=== PATIENT | male | born 1945 | race Caucasian/White ===

== ENCOUNTER 2020-03-23 17:12 | Inpatient (IN) | payer OTHER ==
--- NOTE | 2020-03-23 17:37 | PDOC ---
Rapid Medical Evaluation Time Seen by Provider: 03/23/20 17:28 Medical Evaluation: 03/23/20 17:33 I performed a brief in-person evaluation of this patient. Pt is a 74 y/o male who presents to the ED with complaint of RUQ abdominal pain x 1 month. The patient was seen in urgent care and was advised to come to the ED for evaluation. Pt denies past medical history. Pertinent physical exam findings: RUQ abdominal tenderness to palpation, + Hammonds's sign, + jaundice I have ordered the following: saline lock, labs, RUQ US Patient to proceed to ED for further evaluation. Discharge Disposition - Diagnosis RUQ abdominal pain - Referrals - Patient Instructions - Post Discharge Activity
--- NOTE | 2020-03-23 20:18 | PDOC ---
History of Present Illness - General Chief Complaint: Pain Stated Complaint: REF BY DOCTOR,PAIN Time Seen by Provider: 03/23/20 17:28 History Source: Patient - History of Present Illness Initial Comments: 03/23/20 20:17 HPI: This is a 74 y/o male former smoker (quit 17 years ago) and former heavy drinker (quit 1 month ago) with no other reported PMH presenting to the ED from urgent care due to progressively worsening upper abdominal pain for the past month. Per the patient, he began having dull cramping pain radiating from his LUQ to his RUQ which has progressed to sharp "lightening" pains. He also admits to a 50lb unintentional weight loss over the past month, anorexia, abnormal gait, weakness, and nausea with dry heaving. Patient denies fever/chills, nightsweats. On Monday, he went to urgent care at the insistence of his where they did labs showing: Lipase 814 ALP 320 ALT 77 AST 73 TBili 2.0 U/S showing distended GB with sludge and hypoechoic nodules throughout the liver. ROS: GENERAL/CONSTITUTIONAL: No fever/chills. Yes progressive weakness. Jaundice HEAD, EYES, EARS, NOSE AND THROAT: No change in vision. No sore throat. Admits to horse voice CARDIOVASCULAR: No chest pain or shortness of breath. RESPIRATORY: No cough, wheezing, or hemoptysis. GASTROINTESTINAL: No nausea, vomiting, diarrhea or constipation. Denied blood in stool. Admits to upper abdominal pain. GENITOURINARY: No dysuria, frequency, or change in urination. MUSCULOSKELETAL: No joint or muscle swelling or pain. No neck or back pain. SKIN: No rash NEUROLOGIC: No headache, vertigo, loss of consciousness, or change in strength/sensation. ENDOCRINE:Anorexia, early satiety. Admits to 50 lb weight loss over 1 month HEMATOLOGIC/LYMPHATIC: No anemia, easy bleeding, or history of blood clots. ALLERGIC/IMMUNOLOGIC: No hives or skin allergy. PMH: Denied PSx: Hernia Social Hx: Former tobacco (quit 17 years ago), Former heavy etoh (1 pint per day, quit 1 month ago) Meds: Denied Allergies: KNDA PE: GENERAL: Awake, alert, and fully oriented, in no acute distress. Patient laying in bed, jaundiced. HEAD: No signs of trauma EYES: PERRLA, EOMI ENT: Auricles normal inspection, hearing grossly normal, nares patent, oropharynx clear without exudates. Moist mucosa NECK: Normal ROM, supple, no lymphadenopathy LUNGS: Breath sounds equal, clear to auscultation bilaterally. No wheezes, and no crackles HEART: Regular rate and rhythm, normal S1 and S2 ABDOMEN: Soft, tender to palpation in RUQ and epigastric region No guarding, no rebound. EXTREMITIES: Normal range of motion, no edema. No clubbing or cyanosis. No cords, erythema, or tenderness NEUROLOGICAL: Cranial nerves II through XII grossly intact. Normal speech SKIN: Warm, Dry. Jaundiced MDM: 03/23/20 20:39 This is a 74 y/o male former smoker (quit 17 years ago) and former heavy drinker (quit 1 month ago) with no other reported PMH presenting to the ED from urgent care due to progressively worsening upper abdominal pain for the past month. Per the patient, he began having dull cramping pain radiating from his LUQ to his RUQ which has progressed to sharp "lightening" pains. He also admits to a 50lb unintentional weight loss over the past month, anorexia, abnormal gait, weakness, and nausea with dry heaving. - Concern for malignancy given the weight loss, hx of etoh, elevated liver and pancreatic enzymes - CBC, CMP, lipase, Cardiac panel, UA - CT abdomen/pelvis IV contrast - IV fluids - Pain management - 4mg Morphine for pain 03/23/20 23:34 Abdominal U/S: IMPRESSION: Multiple hypoechoic nodules/masses in the liver measuring up to 3 cm highly suspicious for metastasis. Correlate clinically. Over distended gallbladder with the largest large and borderline thickening of its wall. No gallstones or pericholecystic free fluid is present. Correlate clinically for further evaluation. 03/24/20 00:01 Labs notable for: BUN 28.4 Creatinine 1.5 Total bili 2.0 AST 84 ALT 91 Alk phos 411 Lipase 600 03/24/20 00:24 CT abdomen and pelvis: FINDINGS: Multiple liver masses are noted scattered throughout the liver. Most likely metastatic liver disease. Is there a history of carcinoma? There is a 1.4 cm low-density focus in the head of the pancreas. This could represent carcinoma and evaluation is recommended. Could be the source of the liver metastases. The pancreatic duct is mildly dilated proximal to this. 03/24/20 01:08 - Spoke with surgery building consultant who said this is not a surgical issue. Contact GI for possible ERCP and stent placement or IR for biopsy. - Patient admitted to [facility] for workup of abdominal mass Past History - Medical History Allergies/Adverse Reactions: Allergies Allergy/AdvReac Type Severity Reaction Status Date / Time No Known Allergies Allergy Verified 03/23/20 17:34 COPD: No - Immunization History Immunization Up to Date: No - Psycho-Social/Smoking History Smoking History: Never smoked Have you smoked in the past 12 months: No - Substance Abuse Hx (Audit-C & DAST Scrn) How often the patient has a drink containing alcohol: Monthly or less Number of drinks the patient has on a typical day: 1 or 2 How often the patient has six or more drinks on one occasion: Never Score: In Men: 4 or > Positive; In Women: 3 or > Positive: 1 Screen Result (Pos requires Nsg. Audit-10AR): Negative In the last yr the pt used illegal drug/Rx for NonMed reason: No Score: Yes response is considered Positive: 0 Screen Result (Positive result requires Nsg. DAST-10): Negative *Physical Exam - Vital Signs Last Vital Signs Temp Pulse Resp BP Pulse Ox 97.8 F 73 18 105/66 100 03/23/20 17:34 03/23/20 17:34 03/23/20 17:34 03/23/20 17:34 03/23/20 17:34 Heart Score/ECG Review - ECG Intrepretation Comment:: 03/23/20 23:[address] elevations or T wave inversions Sinus bradycardia Increased R/S ratio in V1, consider early transition or posterior infarct Vent rate 58bpm Pr interval 156ms QRS dur 86ms QT/QTc 474/465 ED Treatment Course - LABORATORY CBC & Chemistry Diagram: 03/23/20 20:55 03/23/20 20:55 Discharge - Discharge Information Problems reviewed: Yes Clinical Impression/Diagnosis: RUQ abdominal pain - Admission Yes - Follow up/Referral - Patient Discharge Instructions - Post Discharge Activity
--- NOTE | 2020-03-23 20:28 | PDOC ---
Attending Attestation - Resident Resident Name: GaurangChristelle - ED Attending Attestation I have performed the following: I have examined & evaluated the patient, The case was reviewed & discussed with the resident, I agree w/resident's findings & plan - HPI HPI: 03/23/20 20:42 see resident hpi - Physicial Exam PE: 03/23/20 20:42 see resident exam - Medical Decision Making 03/23/20 20:42 74-year-old male complaining of 50 pound weight loss over the last month as well as decreased appetite and pain in the upper abdomen, specifically pointing to the right upper quadrant 03/23/20 20:44 Plan for right upper quadrant ultrasound and CT scan of the abdomen and pelvis due to history of alcohol use as well as family history of pancreatic disease, possibly malignancy Discharge - Discharge Information Problems reviewed: Yes Clinical Impression/Diagnosis: RUQ abdominal pain - Follow up/Referral - Patient Discharge Instructions - Post Discharge Activity
[2020-03-23] MEDS ORDERED: SODIUM CHLORIDE 0.9% 500 ML INFUS.BAG IV ONE (20:58)
[2020-03-23 21:13] LABS: BASO % 0.7 % (0-2.0); EOS % 0.7 % (0-4.5); HEMATOCRIT 36.7 % (35.4-49); HEMOGLOBIN 12.8 GM/dL (11.7-16.9); LYMPH % 9.8 % (8-40); MCH 33.4 pg (25.7-33.7); MCHC 34.8 g/dl (32.0-35.9); MEAN CELL VOLUME 95.8 fl (80-96); MEAN PLT VOLUME 10.3 fl (7.5-11.1); MONO % 8.8 % (3.8-10.2); PLATELET COUNT 209 K/MM3 (134-434); RBC 3.83 M/mm3 (4.00-5.60); RDW 12.6 % (11.9-15.9); WHITE BLOOD COUNT 8.9 K/mm3 (4.0-10.0)
[2020-03-23 21:44] LABS: ALBUMIN 3.7 g/dl (3.4-5.0); ALK PHOS 411 U/L (45-117); ANION GAP 10 MMOL/L (8-16); BLOOD UREA NITROGEN 28.4 mg/dL (7-18); CHLORIDE 101 mmol/L (98-107); CO2 26 mmol/L (21-32); CREATININE 1.5 mg/dL (0.55-1.3); GLUCOSE,RANDOM 120 mg/dL (74-106); LIPASE 600 U/L (73-393); POTASSIUM 3.9 mmol/L (3.5-5.1); SGOT/AST 84 U/L (15-37); SGPT/ALT 91 U/L (13-61); SODIUM 136 mmol/L (136-145); TOT PROT 7.2 g/dl (6.4-8.2)
[2020-03-23] MEDS ORDERED: MORPHINE SULFATE 2 MG/ML VIAL ONE (23:44)
[2020-03-23] MEDS: morphine CARPU-JECT 2 MG/1 ML DISP.SYRIN IVPUSH ONE (23:50)
[2020-03-24] MEDS ORDERED: morphine CARPU-JECT 2 MG/1 ML DISP.SYRIN IVPUSH ONE (00:11)
[2020-03-24] MEDS ORDERED: morphine CARPU-JECT 4 MG/1 ML DISP.SYRIN IVPUSH ONE (00:49)
[2020-03-24] MEDS ORDERED: morphine SULFATE 4 MG/ML VIAL ONE (00:50)
[2020-03-24] MEDS: morphine CARPU-JECT 2 MG/1 ML DISP.SYRIN IVPUSH ONE (01:12)
[2020-03-24 01:39] LABS: URINE APPEARANCE CLEAR; URINE BILIRUBIN NEGATIVE (NEGATIVE); URINE COLOR YELLOW; URINE GLUCOSE (UA) NEGATIVE (NEGATIVE); URINE KETONE 2+ (NEGATIVE); URINE LEUK ESTERASE NEGATIVE (NEGATIVE); URINE NITRITE NEGATIVE (NEGATIVE); URINE PROTEIN TRACE (NEGATIVE)
--- NOTE | 2020-03-24 01:43 | PN ---
Teaching Attending Note Name of Resident: Richmond Deleon ATTENDING PHYSICIAN STATEMENT I saw and evaluated the patient. I reviewed the resident's note and discussed the case with the resident. I agree with the resident's findings and plan as documented. SUBJECTIVE: Patient is a 74 year old man with a PMH of Alcohol abuse and Former smoker pr esents to the ER from Urgent care due to progressively worsening upper abdominal pain for the past month. Per the patient, he began having dull cramping pain radiating from his LUQ to his RUQ which has progressed to sharp "lightening" pains. He also admits to a 50lb unintentional weight loss over the past month, anorexia, dizziness, abnormal gait, easy satiety, weakness and nausea with dry heaving. Patient denies fever, chills and night sweats. Laboratory tests showed elevated LFTs and Lipase. Patient denies chest pain, shortness of breath, headache, palpitations, fever, chills, vomiting, diarrhea, constipation, dysuria, frequency, urgency, melena, hematochezia or hematuria. Former smoker. He is a [place] and had a normal colonoscopy 10 years ago. Denies tobacco or illicit drug use. No sick contacts or recent travels. Family history of pancreatic disease/?pancreatic cancer in father. OBJECTIVE: Alert Vital Signs Period Temp Pulse Resp BP Sys/De Paz Pulse Ox Last 24 Hr 97.8 F 63-73 18-18 105-193/66-83 100-100 HEENT: ++Jaundice, eye redness or discharge, PERRLA, EOMI. Normocephalic, atraumatic. External ears are normal and hearing is grossly intact. No nasal discharge. Neck: Supple, nontender. No palpable adenopathy or thyromegaly. No JVD Chest: Good effort. Clear to auscultation and percussion. Heart: Regular. No S3, rub or murmur Abdomen: Not distended, soft, RUQ and epigastric tenderness and no HSM. No rebound or guarding. Normal bowel sounds. Ext: Peripheral pulses intact. No leg edema. Skin: Warm and dry. No petechiae, rash or ecchymosis. Neuro: Alert. Oriented x3. CN 2-12 grossly intact. Sensation grossly intact in all four extremities and DTR are symmetric. Psych: Appropriate mood and affect. Good insight. Abnormal Lab Results 03/23/20 03/23/20 03/24/20 20:55 20:55 01:03 RBC 3.83 L BUN 28.4 H Creatinine 1.5 H Random Glucose 120 H Total Bilirubin 2.0 H AST 84 H ALT 91 H Alkaline Phosphatase 411 H Lipase 600 H Urine Ketones 2+ H Current Medications Generic Name Dose Route Start Last Admin Trade Name Freq PRN Reason Stop Dose Admin Amlodipine Besylate 5 mg 03/24/20 06:00 Norvasc - PO DAILY AIRAM Heparin Sodium (Porcine) 5,000 unit 03/24/20 10:00 Heparin - SQ Q8H-IV AIRAM Morphine Sulfate 2 mg 03/24/20 05:13 Morphine Injection - IVPUSH Q4H PRN PAIN LEVEL 7 - 10 ASSESSMENT AND PLAN: 1. Hepatic masses/Abdominal pain - Abdominal ultrasound report - Multiple hypoechoic nodules/masses in the liver measuring up to 3 cm highly suspicious for metastasis. Correlate clinically. Over distended gallbladder with the largest large and borderline thickening of its wall. No gallstones or pericholecystic free fluid is present. Correlate clinically for further evaluation. CT abdomen/pelvis report - Multiple liver masses are noted scattered throughout the liver. Most likely metastatic liver disease. Is there a history of carcinoma? There is a 1.4 cm low-density focus in the head of the pancreas. This could represent carcinoma and evaluation is recommended. Could be the source of the liver metastases. The pancreatic duct is mildly dilated proximal to this. EKG shows sinus bradycardia at 58/minute and QTc [address]-T wave changes. Will avoid drugs that may prolong QTc. No acute abnormality on CXR. Will trend LFTs, monitor blood glucose q shift, avoid hepatoxic agents, send tumor markers - CA19-9, CEA, Alpha-fetoprotein, PSA, CA 125 - monitor and replete electrolytes and consult GI/Oncology. Treat hypertension with Amlodipine 5 mg q am and Minoxidil 2.5 mg q pm. Viral testing for COVID-19 ordered and patient placed on airborne, droplet and contact isolation. Will continue comprehensive care for all of patients comorbid conditions. 2. SY Cause unclear - may have a component of hepatorenal syndrome. Will get kidney sonogram, hydrate with IV NS, monitor urine output and consult Nephrology. Avoid nephrotoxic agents such as NSAIDS, aminoglycosides, contrast dyes and certain Alternative medicine products. 3. DVT prophylaxis - Heparin 5000u sq tid. 4. Advance directives - Full code
--- OUTSIDE RECORDS SUMMARY | 2020-03-24 02:45 | XMS ---
:1945 Author Organization [facility] Support Name Relationship Address Phone RE Unavailable Unavailable Unavailable DEBORAH GENAO [address] [place] [address] Re-disclosure Warning The records that you are about to access may contain information from federally- assisted alcohol or drug abuse programs. If such information is present, then the following federally mandated warning applies: This information has been disclosed to you from records protected by federal confidentiality rules (42 CFR part 2). The federal rules prohibit you from making any further disclosure of this information unless further disclosure is expressly permitted by the written consent of the person to whom it pertains or as otherwise permitted by 42 CFR part 2. A general authorization for the release of medical or other information is NOT sufficient for this purpose. The Federal rules restrict any use of the information to criminally investigate or prosecute any alcohol or drug abuse patient.The records that you are about to access may contain highly sensitive health information, the redisclosure of which is protected by Article 27-F of the [facility] Public Health law. If you continue you may haveaccess to information: Regarding HIV / AIDS; Provided by facilities licensed or operated by the [facility] Office of Mental Health; or Provided by the [facility] Office for People With Developmental Disabilities. If such information is present, then the following [facility] mandated warning applies: This information has been disclosed to you from confidential records which are protected by state law. State law prohibits you from making any further disclosure of this information without the specific written consent of the person to whom it pertains, or as otherwise permitted by law. Any unauthorized further disclosure in violation of state law may result in a fine or prison sentence or both. A general authorization for the release of medical or other information is NOT sufficient authorization for further disclosure. 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
--- NOTE | 2020-03-24 05:24 | HP ---
CHIEF COMPLAINT: PCP: HISTORY OF PRESENT ILLNESS: 74M w/ no significant PMH referred to ED by UC for concern of US RUQ showing multiple liver masses and thickened GB wall. Has had abdominal discomfort for 1.5mo, which has gotten worse to become intermittent excruciating pain. Decided to seek UC, after lack of resolution. Pain is band-like epigastric pain radiating to the back. Has had decreased appetite. No post-prandial pain. Concerned it was COVID so tried quarantine. Feels weak, fatigued, dizzy when getting up. Wfie thinks 50lb weight loss in 1mo. Thinks voice has been hoarse for past 2-3 weeks. Has intermittent nausea for past weeks. Feels like has trouble walking, needs to stablize self. Denies jaundice, scleral icterus, pale stools. Denies home meds. Takes MVI. Last colonoscopy was over 10ys prior, which was normal. Received at [facility]. Served in [employer]. Never got tested for hepatitis. No exposure to [place]. 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 ER course was notable for: (1) Tmax 97.8F, 73, BP 193/83 (2) BUN/Cr 28.4/1.5 (3) Tbil 2.0, AP 411, AST/ALT 84/91 (4) Lipase 600 (5) US INA: multiple masses in the liver(up to 3cm), highly suspicious for metastasis. Overdistended GB w/ borderline thickened wall. No gallstones or pericholecystic free fluid. (6) CT A/P: multiple liver masses are noted throughout the liver. 1.4cm low- density focus in the head of the pancreas, could represent carcinoma. Pancreatic duct is mildly dilated. (7) ED contacted Surgery on-call who said this was not a surgical issue. Contact GI for possible ERCP and stent placement or IR for biopsy. (8) NS 1L, morphine 4mg, 2mg, 2mg Recent Travel: denies PAST MEDICAL HISTORY: former smoker former chronic EtOH PAST SURGICAL HISTORY: Right Inguinal Hernia Social History: Smoking: quit 20ys prior, first started at 22y/o for 0.5 - 1.5ppd Alcohol: quit 1mo prior. 1pint vodka daily. Has been drinking regularly for 50ys Drugs: denies Allergies No Known Allergies Allergy (Verified 03/23/20 17:34) HOME MEDICATIONS: REVIEW OF SYSTEMS CONSTITUTIONAL: generalized weakness, malaise, loss of appetite, weight change Absent: fever, chills, diaphoresis, HEENT: Absent: rhinorrhea, nasal congestion, throat pain, throat swelling, difficulty swallowing, mouth swelling, ear pain, eye pain, visual changes CARDIOVASCULAR: Absent: chest pain, syncope, palpitations, irregular heart rate, lightheadedness, peripheral edema RESPIRATORY: Absent: cough, shortness of breath, dyspnea with exertion, orthopnea, wheezing, stridor, hemoptysis GASTROINTESTINAL: abdominal pain Absent: , abdominal distension, nausea, vomiting, diarrhea, constipation, melena, hematochezia GENITOURINARY: Absent: dysuria, frequency, urgency, hesitancy, hematuria, flank pain, genital pain MUSCULOSKELETAL: Absent: myalgia, arthralgia, joint swelling, back pain, neck pain SKIN: Absent: rash, itching, pallor HEMATOLOGIC/IMMUNOLOGIC: Absent: easy bleeding, easy bruising, lymphadenopathy, frequent infections ENDOCRINE: unexplained weight gain, unexplained weight loss, Absent: heat intolerance, cold intolerance NEUROLOGIC: Absent: headache, focal weakness or paresthesias, dizziness, unsteady gait, seizure, mental status changes, bladder or bowel incontinence PSYCHIATRIC: Absent: anxiety, depression, suicidal or homicidal ideation, hallucinations. PHYSICAL EXAMINATION Vital Signs - 24 hr 03/23/20 03/23/20 17:34 23:50 Temperature 97.8 F Pulse Rate 73 Pulse Rate [ 63 Both Radial] Respiratory 18 18 Rate Blood Pressure 105/66 Blood Pressure 193/83 H [Left Arm] O2 Sat by Pulse 100 100 Oximetry (%) GENERAL: Awake, alert, and fully oriented, in no acute distress. HEAD: Normal with no signs of trauma. Mild temporal wasting EYES: Sclera anicteric, conjunctiva clear. No lid lag. EARS, NOSE, THROAT: Moist mucous membranes. NECK: no cervical LAD. LUNGS: Breath sounds equal, clear to auscultation bilaterally. No wheezes, and no crackles. HEART: Regular rate and rhythm, normal S1 and S2 without murmur, rub or gallop. ABDOMEN: Soft, not distended, RUQ tenderness w/ deep palpitation, mild tenderness of LQU and LLQ, no rebound. MUSCULOSKELETAL: No bony deformities or tenderness. No CVA tenderness. UPPER EXTREMITIES: 2+ pulses, warm, well-perfused. No cyanosis. No clubbing. No peripheral edema. LOWER EXTREMITIES: 2+ pulses, warm, well-perfused. No calf tenderness. No p eripheral edema. NEUROLOGICAL: Cranial nerves II-XII intact. Normal speech. Normal gait. SKIN: Warm, dry, normal turgor, no rashes or lesions noted, normal capillary refill. Laboratory Results - last 24 hr 03/23/20 03/23/20 03/24/20 20:55 20:55 01:03 WBC 8.9 RBC 3.83 L Hgb 12.8 Hct 36.7 MCV 95.8 MCH 33.4 MCHC 34.8 RDW 12.6 Plt Count 209 MPV 10.3 Absolute Neuts (auto) 7.1 Neutrophils % 80.0 Lymphocytes % 9.8 Monocytes % 8.8 Eosinophils % 0.7 Basophils % 0.7 Nucleated RBC % 0 Sodium 136 Potassium 3.9 Chloride 101 Carbon Dioxide 26 Anion Gap 10 BUN 28.4 H Creatinine 1.5 H Est GFR (CKD-EPI)AfAm 52.77 Est GFR (CKD-EPI)NonAf 45.53 Random Glucose 120 H Calcium 9.0 Total Bilirubin 2.0 H AST 84 H ALT 91 H Alkaline Phosphatase 411 H Creatine Kinase 42 Troponin I < 0.02 Total Protein 7.2 Albumin 3.7 Lipase 600 H Urine Color Yellow Urine Appearance Clear Urine pH 6.0 Ur Specific [place] 1.033 Urine Protein Trace Urine Glucose (UA) Negative Urine Ketones 2+ H Urine Blood Negative Urine Nitrite Negative Urine Bilirubin Negative Urine Urobilinogen 1.0 Ur Leukocyte Esterase Negative ASSESSMENT/PLAN: 74M w/ no significant PMH referred to ED by for concern of US RUQ showing multiple liver masses and thickened GB wall. Labwork notable for Tbil 2.0, AP 411, AST/ALT 84/91 and imaging showing multiple liver masses, pancreatic head mass, and possible GB wall thickening. Admitted for liver mets from unknown origin. #RUQ pain --possibly 2/2 acute/chronic cholecystitis vs Rhoda capsule distension from liver mets > Tbil 2.0, AP 411, AST/ALT 84/91 > US INA: multiple masses in the liver(up to 3cm), highly suspicious for metastasis. Overdistended GB w/ borderline thickened wall. No gallstones or pericholecystic free fluid. > CT A/P: multiple liver masses are noted throughout the liver. 1.4cm low- density focus in the head of the pancreas, could represent carcinoma. Pancreatic duct is mildly dilated. - pain regimen: -morphine 2mg q4h - GI consult(Daryn): --recs pending: colonoscopy? EGD + EUS? biliary stent? #liver mets from unknown > CEA, CA125, CA 19-9, AFP - Oncology consult(Lashae De La Fuente): --recs pending #SY vs CKD > Cr 1.5(unknown baseline) - IVF #hypertension --possibly from RUQ pain -amlodipine 5mg QD; if no improvement in BP may consider adding NICOLÁS-I, HCTZ, or minoxidil #ho of chronic EtOH usage --not in withdrawal - monitor for withdrawal #asymptomatic bradycardia > HR 58 - monitor #prolonged QTc > QTc 465 - avoid QTc prolonging meds FEN - regular diet - NS @100 DVT PPX - SQH Family Medical History Family History: As Documented Family Hx Cancer: Father (pancreatitis vs pancreatic cancer) Visit type - Medication Review Med list reviewed for High Risk Meds patients 65 and older: Yes - Emergency Visit Emergency Visit: Yes ED Registration Date: 03/24/20 Care time: The patient presented to the Emergency Department on the above date and was hospitalized for further evaluation of their emergent condition. - New Patient This patient is new to me today: Yes Date on this admission: 03/24/20 - Critical Care Critical Care patient: No ATTENDING PHYSICIAN STATEMENT I saw and evaluated the patient. I reviewed the resident's note and discussed the case with the resident. I agree with the resident's findings and plan as documented. SUBJECTIVE: OBJECTIVE: ASSESSMENT AND PLAN:
[2020-03-24] MEDS ORDERED: SODIUM CHLORIDE 1,000 ML IV SCH (06:30)
[2020-03-24] MEDS ORDERED: THIAMINE HCL 200 MG/2 ML VIAL IVPB ONE (06:47)
[2020-03-24] MEDS ORDERED: amLODIPine BESYLATE 5 MG TABLET (FP) ONE (07:09)
[2020-03-24] MEDS: amLODIPine BESYLATE 5 MG TABLET (FP) PO SCH ×2 (07:12→11:53)
[2020-03-24] MEDS: HEPARIN NA (PORCINE) 5,000 UNITS/ML 1ML VIAL SQ SCH ×3 (08:15→23:42)
[2020-03-24 09:09] LABS: HEMATOCRIT 33.5 % (35.4-49); HEMOGLOBIN 11.6 GM/dL (11.7-16.9); MCH 33.4 pg (25.7-33.7); MCHC 34.7 g/dl (32.0-35.9); MEAN CELL VOLUME 96.2 fl (80-96); MEAN PLT VOLUME 11.1 fl (7.5-11.1); PLATELET COUNT 126 K/MM3 (134-434); RBC 3.48 M/mm3 (4.00-5.60); RDW 12.5 % (11.9-15.9); WHITE BLOOD COUNT 6.3 K/mm3 (4.0-10.0)
[2020-03-24] MEDS ORDERED: FOLIC ACID 1 MG TABLET (FP) ONE (09:09)
[2020-03-24] MEDS ORDERED: THIAMINE HCL 200 MG/2 ML VIAL ONE (09:09)
[2020-03-24] MEDS ORDERED: MULTIVITAMINS (DAILY MVI) TABLET (FP) ONE (09:09)
[2020-03-24 09:18] LABS: INR 1.51 (0.83-1.09); PROTHROMBIN TIME (PATIENT) 17.9 SEC (9.7-13.0)
[2020-03-24] MEDS: FOLIC ACID 1 MG TABLET (FP) PO SCH (09:24)
[2020-03-24] MEDS: MULTIVITAMINS (DAILY MVI) TABLET (FP) PO SCH (09:24)
--- NOTE | 2020-03-24 09:27 | EKG ---
Test Reason : Blood Pressure : / mmHG Vent. Rate : 058 BPM Atrial Rate : 058 BPM P-R Int : 156 ms QRS Dur : 086 ms QT Int : 474 ms P-R-T Axes : 067 017 051 degrees QTc Int : 465 ms SINUS BRADYCARDIA INCREASED R/S RATIO IN V1, CONSIDER EARLY TRANSITION OR POSTERIOR INFARCT ABNORMAL ECG NO PREVIOUS ECGS AVAILABLE Confirmed by MD DERIC, RAFI ([id number]) on 03/24/2020 9:27:05 AM Referred By: Confirmed By:RAFI LEOS MD
[2020-03-24 09:38] LABS: ALBUMIN 3.4 g/dl (3.4-5.0); BILIRUBIN,DIRECT 1.1 mg/dL (0.0-0.2); BILIRUBIN,TOTAL 2.3 mg/dL (0.2-1); BLOOD UREA NITROGEN 21.6 mg/dL (7-18); CALCIUM 8.4 mg/dL (8.5-10.1); CREATININE 0.9 mg/dL (0.55-1.3); MAGNESIUM 2.4 mg/dL (1.8-2.4); PHOSPHOROUS 3.1 mg/dL (2.5-4.9); POTASSIUM 3.9 mmol/L (3.5-5.1); TOT PROT 6.5 g/dl (6.4-8.2)
--- NOTE | 2020-03-24 10:17 | PN ---
Physical Exam: SUBJECTIVE: Patient seen and examined in the ED. Pt appears in no acute distress, c/o upper abdominal pain that radiates to his back, denies nausea, vomiting. States feeling nervous and fearful d/t findings on CT scan OBJECTIVE: 74M w/ hx of right inguinal herina s/p repair in , ETOH abuse (quit 1 month ago, drank 1 pint vodka daily) and former smoker referred to ED by UC for concern of US RUQ showing multiple liver masses and thickened GB wall. Has had abdominal discomfort for 1.5mo, which has gotten worse. Decided to seek UC, after lack of resolution. Pain is band-like epigastric pain radiating to the back. Has had decreased appetite. No post-prandial pain. Concerned it was COVID so tried quarantine. Also endorses a 50lb weight loss in 1 mo. Has intermittent nausea for past weeks. Last colonoscopy was over 10ys prior, which was normal. Vital Signs Period Temp Pulse Resp BP Sys/De [place]az Pulse Ox Last 24 Hr 97.8 F-98.4 F 62-73 18-18 105-193/66-83 97-100 GENERAL: The patient is awake, alert, and fully oriented, in no acute distress. HEAD: Normal with no signs of trauma. EYES: PERRL, extraocular movements intact, sclera anicteric, conjunctiva clear. No ptosis. ENT: Ears normal, nares patent, oropharynx clear without exudates, moist mucous membranes. NECK: Trachea midline, full range of motion, supple. LUNGS: Breath sounds equal, clear to auscultation bilaterally, no wheezes, no crackles, no accessory muscle use. HEART: Regular rate and rhythm, S1, S2 without murmur, rub or gallop. ABDOMEN: Soft, generalized tenderness to palpation, nondistended, normoactive bowel sounds, no guarding, no rebound. EXTREMITIES: 2+ pulses, warm, well-perfused, no edema. NEUROLOGICAL: Cranial nerves II through XII grossly intact. Normal speech, gait not observed. PSYCH: Nervous, fearful, normal affect. SKIN: Warm, dry, normal turgor, no rashes or lesions noted Laboratory Results - last 24 hr 03/23/20 03/23/20 03/24/20 20:55 20:55 01:03 WBC 8.9 RBC 3.83 L Hgb 12.8 Hct 36.7 MCV 95.8 MCH 33.4 MCHC 34.8 RDW 12.6 Plt Count 209 MPV 10.3 Absolute Neuts (auto) 7.1 Neutrophils % 80.0 Lymphocytes % 9.8 Monocytes % 8.8 Eosinophils % 0.7 Basophils % 0.7 Nucleated RBC % 0 PT with INR INR Sodium 136 Potassium 3.9 Chloride 101 Carbon Dioxide 26 Anion Gap 10 BUN 28.4 H Creatinine 1.5 H Est GFR (CKD-EPI)AfAm 52.77 Est GFR (CKD-EPI)NonAf 45.53 Random Glucose 120 H Calcium 9.0 Phosphorus Magnesium Total Bilirubin 2.0 H Direct Bilirubin AST 84 H ALT 91 H Alkaline Phosphatase 411 H Creatine Kinase 42 Troponin I < 0.02 Total Protein 7.2 Albumin 3.7 Lipase 600 H Urine Color Yellow Urine Appearance Clear Urine pH 6.0 Ur Specific [place] 1.033 Urine Protein Trace Urine Glucose (UA) Negative Urine Ketones 2+ H Urine Blood Negative Urine Nitrite Negative Urine Bilirubin Negative Urine Urobilinogen 1.0 Ur Leukocyte Esterase Negative 03/24/20 03/24/20 03/24/20 08:20 08:20 08:20 WBC 6.3 RBC 3.48 L Hgb 11.6 L Hct 33.5 L MCV 96.2 H MCH 33.4 MCHC 34.7 RDW 12.5 Plt Count MPV Absolute Neuts (auto) Neutrophils % Lymphocytes % Monocytes % Eosinophils % Basophils % Nucleated RBC % PT with INR 17.90 H INR 1.51 H Sodium 136 Potassium 3.9 Chloride 103 Carbon Dioxide 24 Anion Gap 9 BUN 21.6 H Creatinine 0.9 Est GFR (CKD-EPI)AfAm 97.86 Est GFR (CKD-EPI)NonAf 84.43 Random Glucose 104 Calcium 8.4 L Phosphorus 3.1 Magnesium 2.4 Total Bilirubin 2.3 H Direct Bilirubin 1.1 H AST 65 H ALT 72 H Alkaline Phosphatase 339 H Creatine Kinase Troponin I Total Protein 6.5 Albumin 3.4 Lipase Urine Color Urine Appearance Urine pH Ur Specific [place] Urine Protein Urine Glucose (UA) Urine Ketones Urine Blood Urine Nitrite Urine Bilirubin Urine Urobilinogen Ur Leukocyte Esterase Active Medications Generic Name Dose Route Start Last Admin Trade Name Freq PRN Reason Stop Dose Admin Amlodipine Besylate 5 mg 03/24/20 06:00 03/24/20 07:12 Norvasc - PO Not Given DAILY AIRAM Folic Acid 1 mg 03/24/20 10:00 03/24/20 09:24 Folic Acid - PO 1 mg DAILY AIRAM Administration Heparin Sodium (Porcine) 5,000 unit 03/24/20 06:30 03/24/20 08:15 Heparin - SQ Not Given TID AIRAM Sodium Chloride 1,000 mls @ 100 mls/hr 03/24/20 06:30 03/24/20 07:30 Normal Saline - IV 100 mls/hr ASDIR AIRAM Administration Morphine Sulfate 2 mg 03/24/20 05:13 Morphine Sulfate IVPUSH Q4H PRN PAIN LEVEL 7 - 10 Multivitamins/Minerals/Vitamin C 1 tab 03/24/20 10:00 03/24/20 09:24 Tab-A-Vit - PO 1 tab DAILY AIRAM Administration Thiamine HCl 100 mg 03/25/20 10:00 Vitamin B1 - PO DAILY AIRAM ASSESSMENT/PLAN: see problem list Covid Status pending Problem List - Problems (1) Abdominal pain Assessment/Plan: CT A/P done - positive for liver mets, possible hepatic vein thrombosis, focal density seen on pancreas GI consult Morphine 2mg IV PRN for pain Code(s): R10.9 - UNSPECIFIED ABDOMINAL PAIN (2) 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 Assessment/Plan: GI recommending transfer to hepatobiliary center explained this to patient, states will think about it and make a decision regard ing transfer seen by Heme/Onc tumor markers pending Code(s): C78.7 - SECONDARY MALIG NEOPLASM OF LIVER AND INTRAHEPATIC BILE DUCT; C80.1 - MALIGNANT (PRIMARY) NEOPLASM, UNSPECIFIED (3) Former consumption of alcohol Assessment/Plan: quit 1 month ago, drank 1 pint vodka daily no s/s withdrawl Code(s): Z87.898 - PERSONAL HISTORY OF OTHER SPECIFIED CONDITIONS (4) Poor appetite Assessment/Plan: states has lost significant amount of weight in the last month continue regular diet monitor electrolytes Code(s): R63.0 - ANOREXIA (5) Hyperbilirubinemia Assessment/Plan: monitor bilirubin levels Code(s): E80.6 - OTHER DISORDERS OF BILIRUBIN METABOLISM (6) Elevated liver enzymes Assessment/Plan: continue to monitor Code(s): R74.8 - ABNORMAL LEVELS OF OTHER SERUM ENZYMES (7) DVT prophylaxis Assessment/Plan: Heparin SQ tid FEN Regular Diet Fluids dc'd d/t elevated BP monitor electrolytes Code(s): Z29.9 - ENCOUNTER FOR PROPHYLACTIC MEASURES, UNSPECIFIED Visit type - Emergency Visit Emergency Visit: Yes ED Registration Date: 03/24/20 Care time: The patient presented to the Emergency Department on the above date and was hospitalized for further evaluation of their emergent condition. - New Patient This patient is new to me today: Yes Date on this admission: 03/24/20 - Critical Care Critical Care patient: No - Discharge Referral Referred to [facility] Med P.C.: No - Medication Review Med list reviewed for High Risk Meds patients 65 and older: Yes
--- NOTE | 2020-03-24 11:14 | CONSULT ---
Consultation: Heme-Onc Resident note REQUESTING PROVIDER: Dr. Chauhan CONSULT REQUEST: We have been asked to medically evaluate this patient for liver masses. HISTORY OF PRESENT ILLNESS: Patient is a 74 year old male with no significant past medical history presented to the ED with RUQ pain for more than a month. Patient reported he started experiencing abdominal pain about 1 1/2 months ago, described as persistent dull ache at the RUQ, and at times would have intermittent sharp pains, with no aggravating or alleviating factors. During that time, patient also started having loss of appetite and generalized fatigue that ADLs became tiring. Patient also reports unintentional weight loss in the last month, that he can "see it". He is also a chronic alcohol drinker, and stopped last month as he didn't have any appetite. Yesterday, due to persistent symptoms, patient went to urgent care where US was done and revealed multiple liver masses suspicious for metastasis. Patient was then advised to go to the hospital. Patient denies any recent illness or sick contacts. Denies fevers, chills, night sweats, headache, dizziness, chest pain, shortness of breath, nausea, vomiting, diarrhea, bloody stools, constipation, urinary symptoms. He had colonoscopy once in the past that was reported normal, but is unsure when it was done, possibly >10 years ago. Last annual follow up with PCP about 3 years ago as everything was reported normal. PMHx: none PSHx: inguinal hernia repair Allergies: NKDA SHx: 30 pack years smoking history, quit 20 years ago, drinks 1 pint of vodka daily, stopped a month ago, denies illicit drug use FHx: pancreatitis - father, no history of blood disorders or cancer in the family REVIEW OF SYSTEMS: CONSTITUTIONAL: generalized weakness, malaise, loss of appetite, weight loss Absent: fever, chills, diaphoresis, HEENT: Absent: rhinorrhea, nasal congestion, throat pain, throat swelling, difficulty swallowing, mouth swelling, ear pain, eye pain, visual changes CARDIOVASCULAR: Absent: chest pain, syncope, palpitations, irregular heart rate, lightheadedness, peripheral edema RESPIRATORY: Absent: cough, shortness of breath, dyspnea with exertion, orthopnea, wheezing, stridor, hemoptysis GASTROINTESTINAL:abdominal pain Absent: abdominal distension, nausea, vomiting, diarrhea, constipation, melena, hematochezia GENITOURINARY: Absent: dysuria, frequency, urgency, hesitancy, hematuria, flank pain, genital pain MUSCULOSKELETAL: Absent: myalgia, arthralgia, joint swelling, back pain, neck pain SKIN: Absent: rash, itching, pallor HEMATOLOGIC/IMMUNOLOGIC: Absent: easy bleeding, easy bruising, lymphadenopathy, frequent infections ENDOCRINE: Absent: unexplained weight gain, unexplained weight loss, heat intolerance, cold intolerance NEUROLOGIC: Absent: headache, focal weakness or paresthesias, dizziness, unsteady gait, seizure, mental status changes, bladder or bowel incontinence PSYCHIATRIC: Absent: anxiety, depression, suicidal or homicidal ideation, hallucinations. PHYSICAL EXAMINATION Vital Signs - 24 hr 03/23/20 03/23/20 03/23/20 17:34 21:30 23:50 Temperature 97.8 F Pulse Rate 73 Pulse Rate [ 63 Both Radial] Respiratory 18 18 Rate Blood Pressure 105/66 Blood Pressure 193/83 H [Left Arm] O2 Sat by Pulse 100 100 100 Oximetry (%) 03/24/20 06:16 Temperature 98.4 F Pulse Rate Pulse Rate [ 62 Both Radial] Respiratory 18 Rate Blood Pressure Blood Pressure 166/82 [Left Arm] O2 Sat by Pulse 97 Oximetry (%) GENERAL: Awake, alert, and fully oriented, in no acute distress. HEAD: Normal with no signs of trauma. EYES: EOMI, sclera anicteric, conjunctiva clear. EARS, NOSE, THROAT:Moist mucous membranes. NECK: Normal range of motion, supple without lymphadenopathy, JVD, or masses. LUNGS: Breath sounds equal, clear to auscultation bilaterally. HEART: Regular rate and rhythm, normal S1 and S2 without murmur. ABDOMEN: Soft, RUQ tenderness, not distended, normoactive bowel sounds, no guarding, no rebound LOWER EXTREMITIES: 2+ pulses, warm, well-perfused. No calf tenderness. No peripheral edema. NEUROLOGICAL: Cranial nerves II-XII grossly intact. Normal speech. PSYCHIATRIC: Cooperative. Good eye contact. Appropriate mood and affect. SKIN: Warm, dry, normal turgor. Laboratory Results - last 24 hr 03/23/20 03/23/20 03/24/20 20:55 20:55 01:03 WBC 8.9 RBC 3.83 L Hgb 12.8 Hct 36.7 MCV 95.8 MCH 33.4 MCHC 34.8 RDW 12.6 Plt Count 209 MPV 10.3 Absolute Neuts (auto) 7.1 Neutrophils % 80.0 Lymphocytes % 9.8 Monocytes % 8.8 Eosinophils % 0.7 Basophils % 0.7 Nucleated RBC % 0 PT with INR INR Sodium 136 Potassium 3.9 Chloride 101 Carbon Dioxide 26 Anion Gap 10 BUN 28.4 H Creatinine 1.5 H Est GFR (CKD-EPI)AfAm 52.77 Est GFR (CKD-EPI)NonAf 45.53 Random Glucose 120 H Calcium 9.0 Phosphorus Magnesium Total Bilirubin 2.0 H Direct Bilirubin AST 84 H ALT 91 H Alkaline Phosphatase 411 H Creatine Kinase 42 Troponin I < 0.02 Total Protein 7.2 Albumin 3.7 Lipase 600 H Urine Color Yellow Urine Appearance Clear Urine pH 6.0 Ur Specific [place] 1.033 Urine Protein Trace Urine Glucose (UA) Negative Urine Ketones 2+ H Urine Blood Negative Urine Nitrite Negative Urine Bilirubin Negative Urine Urobilinogen 1.0 Ur Leukocyte Esterase Negative 03/24/20 03/24/20 03/24/20 08:20 08:20 08:20 WBC 6.3 RBC 3.48 L Hgb 11.6 L Hct 33.5 L MCV 96.2 H MCH 33.4 MCHC 34.7 RDW 12.5 Plt Count MPV Absolute Neuts (auto) Neutrophils % Lymphocytes % Monocytes % Eosinophils % Basophils % Nucleated RBC % PT with INR 17.90 H INR 1.51 H Sodium 136 Potassium 3.9 Chloride 103 Carbon Dioxide 24 Anion Gap 9 BUN 21.6 H Creatinine 0.9 Est GFR (CKD-EPI)AfAm 97.86 Est GFR (CKD-EPI)NonAf 84.43 Random Glucose 104 Calcium 8.4 L Phosphorus 3.1 Magnesium 2.4 Total Bilirubin 2.3 H Direct Bilirubin 1.1 H AST 65 H ALT 72 H Alkaline Phosphatase 339 H Creatine Kinase Troponin I Total Protein 6.5 Albumin 3.4 Lipase Urine Color Urine Appearance Urine pH Ur Specific [place] Urine Protein Urine Glucose (UA) Urine Ketones Urine Blood Urine Nitrite Urine Bilirubin Urine Urobilinogen Ur Leukocyte Esterase Active Medications Generic Name Dose Route Start Last Admin Trade Name Freq PRN Reason Stop Dose Admin Amlodipine Besylate 5 mg 03/24/20 06:00 03/24/20 07:12 Norvasc - PO Not Given DAILY AIRAM Folic Acid 1 mg 03/24/20 10:00 03/24/20 09:24 Folic Acid - PO 1 mg DAILY AIRAM Administration Heparin Sodium (Porcine) 5,000 unit 03/24/20 06:30 03/24/20 08:15 Heparin - SQ Not Given TID AIRAM Sodium Chloride 1,000 mls @ 100 mls/hr 03/24/20 06:30 03/24/20 07:30 Normal Saline - IV 100 mls/hr ASDIR AIRAM Administration Morphine Sulfate 2 mg 03/24/20 05:13 Morphine Sulfate IVPUSH Q4H PRN PAIN LEVEL 7 - 10 Multivitamins/Minerals/Vitamin C 1 tab 03/24/20 10:00 03/24/20 09:24 Tab-A-Vit - PO 1 tab DAILY AIRAM Administration Thiamine HCl 100 mg 03/25/20 10:00 Vitamin B1 - PO DAILY AIRAM ASSESSMENT/PLAN: Patient is a 74 year old male with no significant past medical history presented to the ED with RUQ pain for more than a month. Patient reported he started experiencing abdominal pain about 1 1/2 months ago, described as persistent dull ache at the RUQ, and at times would have intermittent sharp pains, with no aggravating or alleviating factors. #Liver masses, pancreatic mass -CTAP : multiple hepatic masses strongly suspicious for extensive metastatic disease. Ill-defined hypodense mass within the head and uncinate process of the pancreas suspicious for malignancy. Peripancreatic and lukas hepatis lymphadenopathy. Questionable thrombus within the SMV/portal venous junction. -Tumor markers pending including CEA, CA 19-19 -Recommend IR evaluation for possible biopsy -GI consulted. Recs appreciated -Recommend transfer to hepatobiliary center. Dispo: We will continue to follow the patient. Thank you for this consultative opportunity. Visit type - Medication Review Med list reviewed for High Risk Meds patients 65 and older: Yes - Emergency Visit Emergency Visit: Yes ED Registration Date: 03/24/20 Care time: The patient presented to the Emergency Department on the above date and was hospitalized for further evaluation of their emergent condition. - New Patient This patient is new to me today: Yes Date on this admission: 03/24/20 - Critical Care Critical Care patient: No ATTENDING PHYSICIAN STATEMENT I saw and evaluated the patient. I reviewed the resident's note and discussed the case with the resident. I agree with the resident's findings and plan as documented. SUBJECTIVE: OBJECTIVE: ASSESSMENT AND PLAN:
--- NOTE | 2020-03-24 14:34 | CON.GI ---
Consult Consult Specialty:: GI Referred by:: Hospitalist Service Reason for Consultation:: Metastatic disease to the liver - History of Present Illness Chief Complaint: Abdominal pain History of Present Illness: 74M w/ 2 months progressive upper abdominal pain. Seen in urgent care this past monday. Advised to go to ER due to abnormal US findings. Came to [facility] ER 03/23. CT scan revealed multiple liver lesions suspicious for metastatic disease, hypodense lesion in the uncinate process of the pancreas suspicious for malignancy and possible portal vein / SMV thrombus. Biliary tract was not dilated. Has never had colonoscopy. Father may have had pancreatitis. No family history of colorectal cancer. - History Source History Provided By: Patient, Medical Record - Past Medical History Additional Medical History: Denies - Past Surgical History Additional Surgical History: RIH repair - Alcohol/Substance Use Hx Alcohol Use: Yes (1 pint vodka per day. 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 Father: : 54: pancreatitis. 1 brother: : "disabilities". 1 sister: : MVA. 1 son: healthy. No fmaily history of colorectal cancer or other GI malignancy Review of Systems - Review of Systems Constitutional: denies: Chills Cardiovascular: denies: Chest Pain Respiratory: denies: Cough, SOB Gastrointestinal: reports: Abdominal Pain. denies: Diarrhea, Melena, Rectal Bleeding, Vomiting, Vomiting Blood Physical Exam-GI Vital Signs: Vital Signs Temperature 98.4 F 03/24/20 06:16 Pulse Rate 62 03/24/20 06:16 Respiratory Rate 18 03/24/20 06:16 Blood Pressure 166/82 03/24/20 06:16 O2 Sat by Pulse Oximetry (%) 100 03/24/20 09:00 Constitutional: Yes: Calm Eyes: No: Sclera Icterus Cardiovascular: Yes: Bradycardia Respiratory: Yes: CTA Bilaterally Gastrointestinal Inspection: No: Distention ...Auscultate: Yes: Normoactive Bowel Sounds ...Palpate: Yes: Hepatomegaly, Soft, Tenderness (TTP RUQ) ...Percussion: No: Tympanitic Edema: No (No LE edema) Neurological: Yes: Alert, Oriented Labs: CBC, BMP 03/24/20 08:20 03/24/20 08:20 INR, PTT INR 1.51 (0.83-1.09) H 03/24/20 08:20 Imaging - Results Cat Scan: Report Reviewed, Image Reviewed Problem List - Problems (1) Liver metastases Assessment/Plan: Possible pancreatic primary with mets to liver and question of malignant thrombus to portal system. Non dilated biliary tract on US Advise: Onology evaluation, tumor markers pending. Transfer to hepatobiliary center was proposed to the patient as well He would like to think about options, including alternative medicine. I did explain the concern that the current findings likely represent an advanced cancer and that he could further rapidly decompensate from the disease process. Code(s): C78.7 - SECONDARY MALIG NEOPLASM OF LIVER AND INTRAHEPATIC BILE DUCT
--- NOTE | 2020-03-24 15:32 | PN ---
Teaching Attending Note Name of Resident: Esther Mora ATTENDING PHYSICIAN STATEMENT I saw and evaluated the patient. I reviewed the resident's note and discussed the case with the resident. I agree with the resident's findings and plan as documented. SUBJECTIVE: Mentioned pain in RUQ ASSESSMENT AND PLAN: 74 year old gentleman with RUQ pain for 1 1/2 months. He also mentioned has lost weight but does not know how much. Denies NVD. Plan: 1) IR evaluation for possible biopsy. 2) CEA, CA19-9 ordered and pending 3) Rest per Dr. Mora note 4) Thank you for this consultation
[2020-03-24] MEDS ORDERED: MORPHINE SULFATE 2 MG/ML VIAL ONE (16:31)
[2020-03-24] MEDS: MORPHINE SULFATE 2 MG/ML VIAL IVPUSH PRN (16:35)
[2020-03-24] MEDS ORDERED: HEPARIN NA (PORCINE) 5,000 UNITS/ML 1ML VIAL ONE (23:37)
[2020-03-25] MEDS: MORPHINE SULFATE 2 MG/ML VIAL IVPUSH PRN ×5 (00:10→19:58)
[2020-03-25] MEDS: HEPARIN NA (PORCINE) 5,000 UNITS/ML 1ML VIAL SQ SCH ×3 (06:17→21:42)
[2020-03-25 07:12] LABS: BASO % 0.7 % (0-2.0); HEMATOCRIT 31.5 % (35.4-49); HEMOGLOBIN 10.9 GM/dL (11.7-16.9); LYMPH % 7.3 % (8-40); MCH 32.6 pg (25.7-33.7); MCHC 34.7 g/dl (32.0-35.9); MEAN CELL VOLUME 94.1 fl (80-96); MEAN PLT VOLUME 10.8 fl (7.5-11.1); PLATELET COUNT 128 K/MM3 (134-434); RBC 3.35 M/mm3 (4.00-5.60); RDW 12.6 % (11.9-15.9); WHITE BLOOD COUNT 6.6 K/mm3 (4.0-10.0)
[2020-03-25 07:41] LABS: ALBUMIN 3.1 g/dl (3.4-5.0); BILIRUBIN,TOTAL 2.2 mg/dL (0.2-1); BLOOD UREA NITROGEN 17.3 mg/dL (7-18); CALCIUM 8.3 mg/dL (8.5-10.1); CREATININE 0.8 mg/dL (0.55-1.3); MAGNESIUM 2.2 mg/dL (1.8-2.4); POTASSIUM 3.8 mmol/L (3.5-5.1); TOT PROT 5.9 g/dl (6.4-8.2)
[2020-03-25] MEDS: THIAMINE HCL 100 MG TABLET (FP) PO SCH (10:05)
[2020-03-25] MEDS: MULTIVITAMINS (DAILY MVI) TABLET (FP) PO SCH (10:05)
[2020-03-25] MEDS: FOLIC ACID 1 MG TABLET (FP) PO SCH (10:05)
[2020-03-25] MEDS: amLODIPine BESYLATE 5 MG TABLET (FP) PO SCH (10:05)
[2020-03-25 10:09] LABS: CARCINOEMBRYONIC ANTIGEN 17.5 ng/mL (0.0-4.7)
--- NOTE | 2020-03-25 11:36 | PN ---
Physical Exam: SUBJECTIVE: Patient seen and examined. tells me that he is unsure if he will have the biopsy and wants to speak to his first and discuss it. he is not sure if he wants to go through chemo or radiation has had a long drinking (1 pink of vodka daily) history since he was in his 20s. Last drink was on February 16. Denies any withdrawal seizures. 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 OBJECTIVE: 74M w/ hx of right inguinal herina s/p repair in , ETOH abuse (quit 1 month ago, drank 1 pint vodka daily) and former smoker referred to ED by UC for concern of US RUQ showing multiple liver masses and thickened GB wall. Has had abdominal discomfort for 1.5mo, which has gotten worse. Decided to seek UC, after lack of resolution. Pain is band-like epigastric pain radiating to the back. Has had decreased appetite. No post-prandial pain. Concerned it was COVID so tried quarantine. Also endorses a 50lb weight loss in 1 mo. Has intermittent nausea for past weeks. Last colonoscopy was over 10ys prior, which was normal. imaging: abd/pelvis Ct 03/24/2020: multiple hepatic masses suspicious for metastatic disease. ill defined mass at the head of the pancreas Vital Signs Period Temp Pulse Resp BP Sys/De Paz Pulse Ox Last 24 Hr 97.7 F-98.3 F 62-84 16-20 120-165/69-95 97-100 GENERAL: The patient is awake, alert, and fully oriented, in no acute distress. HEAD: Normal with no signs of trauma. EYES: PERRL, extraocular movements intact, sclera anicteric, conjunctiva clear. No ptosis. ENT: Ears normal, nares patent, oropharynx clear without exudates, moist mucous membranes. NECK: Trachea midline, full range of motion, supple. LUNGS: Breath sounds equal, clear to auscultation bilaterally, no wheezes, no crackles, no accessory muscle use. HEART: Regular rate and rhythm, S1, S2 without murmur, rub or gallop. ABDOMEN: Soft, generalized tenderness to palpation, nondistended, normoactive bowel sounds, no guarding, no rebound. EXTREMITIES: 2+ pulses, warm, well-perfused, no edema. NEUROLOGICAL: Cranial nerves II through XII grossly intact. Normal speech, gait not observed. PSYCH: Nervous, fearful, normal affect. SKIN: Warm, dry, normal turgor, no rashes or lesions noted Laboratory Results - last 24 hr 03/23/20 03/24/20 03/24/20 23:25 08:20 08:20 WBC RBC Hgb Hct MCV MCH MCHC RDW Plt Count 126 L D MPV 11.1 Absolute Neuts (auto) Neutrophils % Lymphocytes % Monocytes % Eosinophils % Basophils % Nucleated RBC % Sodium Potassium Chloride Carbon Dioxide Anion Gap BUN Creatinine Est GFR (CKD-EPI)AfAm Est GFR (CKD-EPI)NonAf Random Glucose Calcium Phosphorus Magnesium Total Bilirubin AST ALT Alkaline Phosphatase Total Protein Albumin Tumor Marker AFP 3.1 Carcinoembryonic Ag 17.5 H CA 125 Antigen 562.0 COVID-19 ([place]) Not detected 03/25/20 03/25/20 05:47 05:47 WBC 6.6 RBC 3.35 L Hgb 10.9 L Hct 31.5 L MCV 94.1 MCH 32.6 MCHC 34.7 RDW 12.6 Plt Count 128 L MPV 10.8 Absolute Neuts (auto) 5.1 Neutrophils % 77.0 Lymphocytes % 7.3 L D Monocytes % 14.0 H Eosinophils % 1.0 Basophils % 0.7 Nucleated RBC % 0 Sodium 139 Potassium 3.8 Chloride 105 Carbon Dioxide 22 Anion Gap 12 BUN 17.3 Creatinine 0.8 Est GFR (CKD-EPI)AfAm 102.71 Est GFR (CKD-EPI)NonAf 88.62 Random Glucose 100 Calcium 8.3 L Phosphorus 3.0 Magnesium 2.2 Total Bilirubin 2.2 H AST 60 H ALT 62 H Alkaline Phosphatase 300 H Total Protein 5.9 L Albumin 3.1 L Tumor Marker AFP Carcinoembryonic Ag CA 125 Antigen COVID-19 ([place]) Active Medications Generic Name Dose Route Start Last Admin Trade Name Freq PRN Reason Stop Dose Admin Amlodipine Besylate 5 mg 03/24/20 06:00 03/25/20 10:05 Norvasc - PO 5 mg DAILY AIRAM Administration Folic Acid 1 mg 03/24/20 10:00 03/25/20 10:05 Folic Acid - PO 1 mg DAILY AIRAM Administration Heparin Sodium (Porcine) 5,000 unit 03/24/20 06:30 03/25/20 06:17 Heparin - SQ 5,000 unit TID AIRAM Administration Morphine Sulfate 2 mg 03/24/20 05:13 03/25/20 10:37 Morphine Sulfate IVPUSH 2 mg Q4H PRN Administration PAIN LEVEL 7 - 10 Multivitamins/Minerals/Vitamin C 1 tab 03/24/20 10:00 03/25/20 10:05 Tab-A-Vit - PO 1 tab DAILY AIRAM Administration Thiamine HCl 100 mg 03/25/20 10:00 03/25/20 10:05 Vitamin B1 - PO 100 mg DAILY AIRAM Administration ASSESSMENT/PLAN: Problem List - Problems (1) Abdominal pain Assessment/Plan: CT A/P done - positive for liver mets, possible hepatic vein thrombosis, focal density seen on pancreas GI consult Morphine 2mg IV PRN for pain Code(s): R10.9 - UNSPECIFIED ABDOMINAL PAIN (2) 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 Assessment/Plan: GI recommending transfer to hepatobiliary center explained this to patient, states will think about it and make a decision regarding transfer seen by Heme/Onc tumor markers pending Code(s): C78.7 - SECONDARY MALIG NEOPLASM OF LIVER AND INTRAHEPATIC BILE DUCT; C80.1 - MALIGNANT (PRIMARY) NEOPLASM, UNSPECIFIED (3) Former consumption of alcohol Assessment/Plan: quit 1 month ago, drank 1 pint vodka daily no s/s withdrawl Code(s): Z87.898 - PERSONAL HISTORY OF OTHER SPECIFIED CONDITIONS (4) Poor appetite Assessment/Plan: states has lost significant amount of weight in the last month continue regular diet monitor electrolytes Code(s): R63.0 - ANOREXIA (5) Hyperbilirubinemia Assessment/Plan: monitor bilirubin levels Code(s): E80.6 - OTHER DISORDERS OF BILIRUBIN METABOLISM (6) Elevated liver enzymes Assessment/Plan: continue to monitor Code(s): R74.8 - ABNORMAL LEVELS OF OTHER SERUM ENZYMES (7) DVT prophylaxis Assessment/Plan: Heparin SQ tid FEN Regular Diet Fluids dc'd d/t elevated BP monitor electrolytes Code(s): Z29.9 - ENCOUNTER FOR PROPHYLACTIC MEASURES, UNSPECIFIED Visit type - Emergency Visit Emergency Visit: Yes ED Registration Date: 03/24/20 Care time: The patient presented to the Emergency Department on the above date and was hospitalized for further evaluation of their emergent condition. - New Patient This patient is new to me today: No - Critical Care Critical Care patient: No - Discharge Referral Referred to [facility] Med P.C.: No - Medication Review Med list reviewed for High Risk Meds patients 65 and older: Yes
--- NOTE | 2020-03-25 16:23 | PN ---
Progress Note (short form) - Note Progress Note: He notes intermittent abd pain Questions re: logistics of bx and further mgmt There is RQ tenderness, palp liver Ca 125, Ca19-9 markedly elev Imp: Radiographic adv panc cancer. I have rev'd that bx required for a diagnosis. He understands. Questions/concerns addressed. He is leaning toward undergoing liver bx
[2020-03-26] MEDS: MORPHINE SULFATE 2 MG/ML VIAL IVPUSH PRN ×4 (02:36→20:40)
[2020-03-26] MEDS: HEPARIN NA (PORCINE) 5,000 UNITS/ML 1ML VIAL SQ SCH ×2 (06:28→14:24)
[2020-03-26 08:01] LABS: BASO % 0.6 % (0-2.0); EOS % 1.1 % (0-4.5); HEMATOCRIT 32.8 % (35.4-49); HEMOGLOBIN 11.4 GM/dL (11.7-16.9); LYMPH % 9.5 % (8-40); MCH 32.4 pg (25.7-33.7); MCHC 34.6 g/dl (32.0-35.9); MEAN CELL VOLUME 93.6 fl (80-96); MEAN PLT VOLUME 10.1 fl (7.5-11.1); MONO % 12.7 % (3.8-10.2); NEUT % 76.1 % (42.8-82.8); PLATELET COUNT 152 K/MM3 (134-434); RBC 3.51 M/mm3 (4.00-5.60); RDW 12.4 % (11.9-15.9); WHITE BLOOD COUNT 6.6 K/mm3 (4.0-10.0)
[2020-03-26 08:26] LABS: POTASSIUM 3.8 mmol/L (3.5-5.1)
[2020-03-26 08:47] LABS: ALBUMIN 3.1 g/dl (3.4-5.0); BILIRUBIN,TOTAL 3.1 mg/dL (0.2-1); BLOOD UREA NITROGEN 15.1 mg/dL (7-18); CALCIUM 8.5 mg/dL (8.5-10.1); CREATININE 0.8 mg/dL (0.55-1.3); MAGNESIUM 2.2 mg/dL (1.8-2.4); TOT PROT 6.2 g/dl (6.4-8.2)
[2020-03-26] MEDS: FOLIC ACID 1 MG TABLET (FP) PO SCH (09:43)
[2020-03-26] MEDS: THIAMINE HCL 100 MG TABLET (FP) PO SCH (09:43)
[2020-03-26] MEDS: amLODIPine BESYLATE 5 MG TABLET (FP) PO SCH (09:43)
[2020-03-26] MEDS: MULTIVITAMINS (DAILY MVI) TABLET (FP) PO SCH (09:43)
--- NOTE | 2020-03-26 11:45 | PN ---
Physical Exam: SUBJECTIVE: Patient seen and examined at bedside. Pt stating he is feeling anxious but wishes to proceed with liver biopsy. Pt c/o abd pain, states the morphine is helping. Also c/o decreased appetite. Denies chest pain, SOB, difficulty breathing. OBJECTIVE: 74M w/ hx of right inguinal herina s/p repair in , ETOH abuse (quit 1 month ago, drank 1 pint vodka daily) and former smoker referred to ED by UC for concern of US RUQ showing multiple liver masses and thickened GB wall. Has had abdominal discomfort for 1.5mo, which has gotten worse. Decided to seek UC, after lack of resolution. Pain is band-like epigastric pain radiating to the back. Has had decreased appetite. No post-prandial pain. Concerned it was COVID so tried quarantine. Also endorses a 50lb weight loss in 1 mo. Has intermittent nausea for past weeks. Last colonoscopy was over 10ys prior, which was normal. imaging: abd/pelvis Ct 03/24/2020: multiple hepatic masses suspicious for metastatic disease. ill defined mass at the head of the pancreas Vital Signs Period Temp Pulse Resp BP Sys/De Paz Pulse Ox Last 24 Hr 97.8 F-98.3 F 58-68 20-21 135-159/74-82 99-99 GENERAL: The patient is awake, alert, and fully oriented, in no acute distress. HEAD: Normal with no signs of trauma. EYES: PERRL, extraocular movements intact, sclera anicteric, conjunctiva clear. No ptosis. ENT: Ears normal, nares patent, oropharynx clear without exudates, moist mucous membranes. NECK: Trachea midline, full range of motion, supple. LUNGS: Breath sounds equal, clear to auscultation bilaterally, no wheezes, no crackles, no accessory muscle use. HEART: Regular rate and rhythm, S1, S2 without murmur, rub or gallop. ABDOMEN: tender RUQ, soft, nondistended, normoactive bowel sounds, no guarding, no rebound. EXTREMITIES: 2+ pulses, warm, well-perfused, no edema. NEUROLOGICAL: Cranial nerves II through XII grossly intact. Normal speech, gait not observed. PSYCH: Anxious, normal affect. SKIN: Warm, dry, normal turgor, no rashes or lesions noted Laboratory Results - last 24 hr 03/24/20 03/26/20 03/26/20 08:20 07:15 07:15 WBC 6.6 RBC 3.51 L Hgb 11.4 L Hct 32.8 L MCV 93.6 MCH 32.4 MCHC 34.6 RDW 12.4 Plt Count 152 MPV 10.1 Absolute Neuts (auto) 5.0 Neutrophils % 76.1 Lymphocytes % 9.5 D Monocytes % 12.7 H Eosinophils % 1.1 Basophils % 0.6 Nucleated RBC % 0 Sodium 136 Potassium 3.8 Chloride 103 Carbon Dioxide 24 Anion Gap 9 BUN 15.1 Creatinine 0.8 Est GFR (CKD-EPI)AfAm 102.71 Est GFR (CKD-EPI)NonAf 88.62 Random Glucose 114 H Calcium 8.5 Magnesium 2.2 Total Bilirubin 3.1 H AST 58 H ALT 55 Alkaline Phosphatase 281 H Total Protein 6.2 L Albumin 3.1 L CA 19-9 Antigen 83377 H Active Medications Generic Name Dose Route Start Last Admin Trade Name Freq PRN Reason Stop Dose Admin Alprazolam 1 mg 03/26/20 11:35 Xanax PO Q12H PRN ANXIETY Amlodipine Besylate 5 mg 03/24/20 06:00 03/26/20 09:43 Norvasc - PO 5 mg DAILY AIRAM Administration Folic Acid 1 mg 03/24/20 10:00 03/26/20 09:43 Folic Acid - PO 1 mg DAILY AIRAM Administration Heparin Sodium (Porcine) 5,000 unit 03/24/20 06:30 03/26/20 06:28 Heparin - SQ Not Given TID AIRAM Morphine Sulfate 2 mg 03/24/20 05:13 03/26/20 09:48 Morphine Sulfate IVPUSH 2 mg Q4H PRN Administration PAIN LEVEL 7 - 10 Multivitamins/Minerals/Vitamin C 1 tab 03/24/20 10:00 03/26/20 09:43 Tab-A-Vit - PO 1 tab DAILY AIRAM Administration Thiamine HCl 100 mg 03/25/20 10:00 03/26/20 09:43 Vitamin B1 - PO 100 mg DAILY AIRAM Administration ASSESSMENT/PLAN: see problem list Problem List - Problems (1) Abdominal pain Assessment/Plan: CT A/P done - positive for liver mets, possible hepatic vein thrombosis, focal density seen on pancreas GI consult Morphine 2mg IV PRN for pain Code(s): R10.9 - UNSPECIFIED ABDOMINAL PAIN (2) 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 Assessment/Plan: GI recommending transfer to hepatobiliary center explained this to patient, states will think about it and make a decision regarding transfer seen by Heme/Onc tumor markers pending liver biopsy possibly tomorrow 03/27/20 (Dr Hook consulted) - hold heparin tonight and in the morning and NPO after midnight Code(s): C78.7 - SECONDARY MALIG NEOPLASM OF LIVER AND INTRAHEPATIC BILE DUCT; C80.1 - MALIGNANT (PRIMARY) NEOPLASM, UNSPECIFIED (3) Former consumption of alcohol Assessment/Plan: quit 1 month ago, drank 1 pint vodka daily no s/s withdrawl Code(s): Z87.898 - PERSONAL HISTORY OF OTHER SPECIFIED CONDITIONS (4) Poor appetite Assessment/Plan: states has lost significant amount of weight in the last month continue regular diet monitor electrolytes ensure TID Code(s): R63.0 - ANOREXIA (5) Hyperbilirubinemia Assessment/Plan: monitor bilirubin levels Code(s): E80.6 - OTHER DISORDERS OF BILIRUBIN METABOLISM (6) Elevated liver enzymes Assessment/Plan: continue to monitor Code(s): R74.8 - ABNORMAL LEVELS OF OTHER SERUM ENZYMES (7) DVT prophylaxis Assessment/Plan: Heparin SQ tid (hold tonight and in the morning for possible biopsy) FEN Regular Diet Fluids dc'd d/t elevated BP monitor electrolytes Code(s): Z29.9 - ENCOUNTER FOR PROPHYLACTIC MEASURES, UNSPECIFIED Visit type - Emergency Visit Emergency Visit: Yes ED Registration Date: 03/24/20 Care time: The patient presented to the Emergency Department on the above date and was hospitalized for further evaluation of their emergent condition. - New Patient This patient is new to me today: No - Critical Care Critical Care patient: No - Discharge Referral Referred to [facility] Med P.C.: No - Medication Review Med list reviewed for High Risk Meds patients 65 and older: Yes
--- NOTE | 2020-03-26 16:23 | PN.GI ---
GI Progress Note Subjective: No acute events Complains of pain, particularly in RUQDeferred liver biopsy until tomorrow Reviewed CT scan w/ Dr. butler. Does not think the thrombus in SMV/Portal vein is malignant - Objective Vital Signs: Vital Signs Temperature 97.9 F 03/26/20 09:00 Pulse Rate 63 03/26/20 09:00 Respiratory Rate 22 H 03/26/20 09:00 Blood Pressure 153/83 03/26/20 09:00 O2 Sat by Pulse Oximetry (%) 99 03/26/20 09:00 Constitutional: Calm Eyes: No: Sclera Icterus Cardiovascular: Yes: Regular Rate and Rhythm Respiratory: Yes: CTA Bilaterally Gastrointestinal Inspection: No: Distention ...Auscultate: Yes: Normoactive Bowel Sounds ...Palpate: Yes: Tenderness (TTP RUQ) ...Percussion: No: Tympanitic Edema: No (No LE edema ) Labs: CBC, BMP 03/26/20 07:15 03/26/20 07:15 INR, PTT INR 1.51 (0.83-1.09) H 03/24/20 08:20 Problem List - Problems (1) Liver metastases Assessment/Plan: High suspicion for metastatic pancreatic cancer For IR biopsy Plan per oncology Would defer to heme/onc re: need for anticoagulation for SMV/Portal vein thrombus in current clinical setting Monitor LFTs Pain management Code(s): C78.7 - SECONDARY MALIG NEOPLASM OF LIVER AND INTRAHEPATIC BILE DUCT
[2020-03-27 00:01] VITALS: BMI 23.6
[2020-03-27] MEDS: MORPHINE SULFATE 2 MG/ML VIAL IVPUSH PRN ×4 (06:07→23:27)
[2020-03-27 07:26] LABS: INR 1.54 (0.83-1.09); PROTHROMBIN TIME (PATIENT) 18.2 SEC (9.7-13.0)
[2020-03-27 07:39] LABS: BASO % 0.6 % (0-2.0); EOS % 1.1 % (0-4.5); HEMATOCRIT 33.4 % (35.4-49); HEMOGLOBIN 11.5 GM/dL (11.7-16.9); LYMPH % 8.9 % (8-40); MCH 32.3 pg (25.7-33.7); MCHC 34.4 g/dl (32.0-35.9); MEAN CELL VOLUME 93.9 fl (80-96); MEAN PLT VOLUME 10.3 fl (7.5-11.1); MONO % 13.2 % (3.8-10.2); NEUT % 76.2 % (42.8-82.8); PLATELET COUNT 161 K/MM3 (134-434); RBC 3.55 M/mm3 (4.00-5.60); RDW 12.5 % (11.9-15.9); WHITE BLOOD COUNT 6.8 K/mm3 (4.0-10.0)
[2020-03-27 07:47] LABS: ALBUMIN 3.1 g/dl (3.4-5.0); BILIRUBIN,TOTAL 2.7 mg/dL (0.2-1); BLOOD UREA NITROGEN 23.5 mg/dL (7-18); CALCIUM 8.4 mg/dL (8.5-10.1); CREATININE 0.9 mg/dL (0.55-1.3); MAGNESIUM 2.4 mg/dL (1.8-2.4); POTASSIUM 3.5 mmol/L (3.5-5.1); TOT PROT 6.3 g/dl (6.4-8.2)
--- NOTE | 2020-03-27 10:38 | PN ---
Physical Exam: SUBJECTIVE: Patient seen and examined at the bedside. for a liver biopsy today. patient still undecided on how he wants to proceed and told me previously he is opting out of receiving chemo or radiation if found to have pancreatic cancer. OBJECTIVE: Patient is a 74 male with a past medical history of right inguinal herina s/p repair in , ETOH abuse (quit 1 month ago, drank 1 pint vodka daily) and former smoker referred to ED by UC for concern of US RUQ showing multiple liver masses and thickened GB wall. Has had abdominal discomfort for 1.5mo, which has gotten worse. Decided to seek UC, after lack of resolution. Pain is band-like epigastric pain radiating to the back. Has had decreased appetite. No post-pr andial pain. Concerned it was COVID so tried quarantine. Also endorses a 50lb weight loss in 1 mo. Has intermittent nausea for past weeks. Last colonoscopy was over 10ys prior, which was normal. imaging: abd/pelvis Ct 03/24/2020: multiple hepatic masses suspicious for metastatic disease. ill defined mass at the head of the pancreas Vital Signs Period Temp Pulse Resp BP Sys/De Paz Pulse Ox Last 24 Hr 97.9 F-98.3 F 65-68 18-20 126-139/72-79 97-100 GENERAL: The patient is awake, alert, and fully oriented, in no acute distress. HEAD: Normal with no signs of trauma. EYES: PERRL, extraocular movements intact, sclera anicteric, conjunctiva clear. No ptosis. ENT: Ears normal, nares patent, oropharynx clear without exudates, moist mucous membranes. NECK: Trachea midline, full range of motion, supple. LUNGS: Breath sounds equal, clear to auscultation bilaterally, no wheezes, no crackles, no accessory muscle use. HEART: Regular rate and rhythm, S1, S2 without murmur, rub or gallop. ABDOMEN: tender RUQ, soft, nondistended, normoactive bowel sounds, no guarding, no rebound. EXTREMITIES: 2+ pulses, warm, well-perfused, no edema. NEUROLOGICAL: Cranial nerves II through XII grossly intact. Normal speech, gait not observed. PSYCH: Anxious, normal affect. SKIN: Warm, dry, normal turgor, no rashes or lesions noted Laboratory Results - last 24 hr 03/27/20 03/27/20 03/27/20 06:09 06:09 06:09 WBC 6.8 RBC 3.55 L Hgb 11.5 L Hct 33.4 L MCV 93.9 MCH 32.3 MCHC 34.4 RDW 12.5 Plt Count 161 MPV 10.3 Absolute Neuts (auto) 5.2 Neutrophils % 76.2 Lymphocytes % 8.9 Monocytes % 13.2 H Eosinophils % 1.1 Basophils % 0.6 Nucleated RBC % 0 PT with INR 18.20 H INR 1.54 H Sodium 136 Potassium 3.5 Chloride 102 Carbon Dioxide 25 Anion Gap 9 BUN 23.5 H Creatinine 0.9 Est GFR (CKD-EPI)AfAm 97.86 Est GFR (CKD-EPI)NonAf 84.43 Random Glucose 133 H Calcium 8.4 L Magnesium 2.4 Total Bilirubin 2.7 H AST 66 H ALT 59 Alkaline Phosphatase 302 H Total Protein 6.3 L Albumin 3.1 L Active Medications Generic Name Dose Route Start Last Admin Trade Name Freq PRN Reason Stop Dose Admin Alprazolam 1 mg 03/26/20 11:35 Xanax PO Q12H PRN ANXIETY Amlodipine Besylate 5 mg 03/24/20 06:00 03/26/20 09:43 Norvasc - PO 5 mg DAILY AIRAM Administration Folic Acid 1 mg 03/24/20 10:00 03/26/20 09:43 Folic Acid - PO 1 mg DAILY AIRAM Administration Heparin Sodium (Porcine) 5,000 unit 03/24/20 06:30 03/26/20 14:24 Heparin - SQ Not Given TID AIRAM Morphine Sulfate 2 mg 03/24/20 05:13 03/27/20 10:16 Morphine Sulfate IVPUSH 2 mg Q4H PRN Administration PAIN LEVEL 7 - 10 Multivitamins/Minerals/Vitamin C 1 tab 03/24/20 10:00 03/26/20 09:43 Tab-A-Vit - PO 1 tab DAILY AIRAM Administration Thiamine HCl 100 mg 03/25/20 10:00 03/26/20 09:43 Vitamin B1 - PO 100 mg DAILY AIRAM Administration ASSESSMENT/PLAN: Problem List - Problems (1) Abdominal pain Assessment/Plan: CT A/P done - positive for liver mets, possible hepatic vein thrombosis, focal density seen on pancreas GI consult Morphine 2mg IV PRN for pain Code(s): R10.9 - UNSPECIFIED ABDOMINAL PAIN (2) 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 Assessment/Plan: GI recommending transfer to hepatobiliary center explained this to patient, states will think about it and make a decision regarding transfer seen by Heme/Onc tumor markers elevated for liver biopsy today 03/27/20 (Dr Hook consulted) Code(s): C78.7 - SECONDARY MALIG NEOPLASM OF LIVER AND INTRAHEPATIC BILE DUCT; C80.1 - MALIGNANT (PRIMARY) NEOPLASM, UNSPECIFIED (3) Former consumption of alcohol Assessment/Plan: quit 1 month ago, drank 1 pint vodka daily no s/s withdrawl Code(s): Z87.898 - PERSONAL HISTORY OF OTHER SPECIFIED CONDITIONS (4) Poor appetite Assessment/Plan: states has lost significant amount of weight in the last month continue regular diet monitor electrolytes ensure TID Code(s): R63.0 - ANOREXIA (5) Hyperbilirubinemia Assessment/Plan: monitor bilirubin levels Code(s): E80.6 - OTHER DISORDERS OF BILIRUBIN METABOLISM (6) Elevated liver enzymes Assessment/Plan: continue to monitor Code(s): R74.8 - ABNORMAL LEVELS OF OTHER SERUM ENZYMES (7) DVT prophylaxis Assessment/Plan: SCDs FEN Regular Diet Fluids dc'd d/t elevated BP monitor electrolytes Code(s): Z29.9 - ENCOUNTER FOR PROPHYLACTIC MEASURES, UNSPECIFIED Visit type - Emergency Visit Emergency Visit: Yes ED Registration Date: 03/24/20 Care time: The patient presented to the Emergency Department on the above date and was hospitalized for further evaluation of their emergent condition. - New Patient This patient is new to me today: No - Critical Care Critical Care patient: No - Discharge Referral Referred to [facility] Med P.C.: No - Medication Review Med list reviewed for High Risk Meds patients 65 and older: Yes
[2020-03-27] MEDS: FOLIC ACID 1 MG TABLET (FP) PO SCH (10:45)
[2020-03-27] MEDS: amLODIPine BESYLATE 5 MG TABLET (FP) PO SCH (10:46)
[2020-03-27] MEDS: THIAMINE HCL 100 MG TABLET (FP) PO SCH (10:46)
[2020-03-27] MEDS: MULTIVITAMINS (DAILY MVI) TABLET (FP) PO SCH (10:46)
[2020-03-27] MEDS ORDERED: MIDAZOLAM HCL 2 MG/2 ML SINGLE DOSE VIAL IVPUSH ONE (11:30)
[2020-03-27] MEDS: HEPARIN NA (PORCINE) 5,000 UNITS/ML 1ML VIAL SQ SCH (13:43)
[2020-03-28] MEDS: MORPHINE SULFATE 2 MG/ML VIAL IVPUSH PRN ×2 (04:09→08:33)
[2020-03-28] MEDS: FOLIC ACID 1 MG TABLET (FP) PO SCH (09:00)
[2020-03-28] MEDS: THIAMINE HCL 100 MG TABLET (FP) PO SCH (09:00)
[2020-03-28] MEDS: MULTIVITAMINS (DAILY MVI) TABLET (FP) PO SCH (09:00)
[2020-03-28] MEDS: amLODIPine BESYLATE 5 MG TABLET (FP) PO SCH (09:00)
[2020-03-28] MEDS ORDERED: ENOXAPARIN NA (PORCINE) 40 MG/0.4 ML DISP.SYRIN SQ SCH (10:00)
--- NOTE | 2020-03-28 10:42 | PN ---
Physical Exam: SUBJECTIVE: Patient seen and examined at the bedside. in no acute distress, having some abdominal pain/discomfort. I spoke to patient's who would like to have all the imaging done here and take the full report to patient's PCP to discuss options including surgical options. She is asking for oncology referrals and will also ask PCP for r eferrals. OBJECTIVE: Patient is a 74 male with a past medical history of right inguinal herina s/p repair in , ETOH abuse (quit 1 month ago, drank 1 pint vodka daily) and former smoker referred to ED for concern of US RUQ showing multiple liver masses and thickened GB wall seen at urgent care. He has an abdominal pelvis u/s 03/24/2020 which showed multiple hepatic masses suspicious for metastatic disease. ill defined mass at the head of the pancreas. tumor marker elevated. patient verbalizes abdominal discomfort. imaging: abd/pelvis Ct 03/24/2020: multiple hepatic masses suspicious for metastatic disease. ill defined mass at the head of the pancreas Period Temp Pulse Resp BP Sys/De Paz Pulse Ox Last 24 Hr 97.8 F-98.1 F 60-81 16-20 114-168/71-94 97-100 GENERAL: The patient is awake, alert, and fully oriented, in no acute distress. HEAD: Normal with no signs of trauma. EYES: PERRL, extraocular movements intact, sclera anicteric, conjunctiva clear. No ptosis. ENT: Ears normal, nares patent, oropharynx clear without exudates, moist mucous membranes. NECK: Trachea midline, full range of motion, supple. LUNGS: Breath sounds equal, clear to auscultation bilaterally, no wheezes, no crackles, no accessory muscle use. HEART: Regular rate and rhythm, S1, S2 without murmur, rub or gallop. ABDOMEN: tender RUQ, soft, nondistended, normoactive bowel sounds, no guarding, no rebound. EXTREMITIES: 2+ pulses, warm, well-perfused, no edema. NEUROLOGICAL: Normal speech, gait not observed. PSYCH: Anxious SKIN: Warm, dry, normal turgor, no rashes or lesions noted Active Medications Generic Name Dose Route Start Last Admin Trade Name Freq PRN Reason Stop Dose Admin Alprazolam 1 mg 03/26/20 11:35 Xanax PO Q12H PRN ANXIETY Amlodipine Besylate 5 mg 03/24/20 06:00 03/28/20 09:00 Norvasc - PO 5 mg DAILY AIRAM Administration Enoxaparin Sodium 40 mg 03/28/20 10:00 03/28/20 09:01 Lovenox - SQ 40 mg DAILY AIRAM Administration Folic Acid 1 mg 03/24/20 10:00 03/28/20 09:00 Folic Acid - PO 1 mg DAILY AIRAM Administration Multivitamins/Minerals/Vitamin C 1 tab 03/24/20 10:00 03/28/20 09:00 Tab-A-Vit - PO 1 tab DAILY AIRAM Administration Oxycodone HCl 5 mg 03/28/20 10:41 Roxicodone - PO Q4H PRN PAIN LEVEL 7 - 10 Thiamine HCl 100 mg 03/25/20 10:00 03/28/20 09:00 Vitamin B1 - PO 100 mg DAILY AIRAM Administration ASSESSMENT/PLAN: Problem List - Problems (1) Abdominal pain Assessment/Plan: CT A/P done - positive for liver mets, possible hepatic vein thrombosis, focal density seen on pancreas on oxycodone for pain control gi consulted and following Code(s): R10.9 - UNSPECIFIED ABDOMINAL PAIN (2) 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 Assessment/Plan: GI recommending transfer to hepatobiliary center explained this to patient, states will think about it and make a decision regarding transfer seen by Heme/Onc tumor markers elevated for liver biopsy today 03/27/20 (Dr Hook consulted) Code(s): C78.7 - SECONDARY MALIG NEOPLASM OF LIVER AND INTRAHEPATIC BILE DUCT; C80.1 - MALIGNANT (PRIMARY) NEOPLASM, UNSPECIFIED (3) Former consumption of alcohol Assessment/Plan: quit 1 month ago, drank 1 pint vodka daily no s/s withdrawl Code(s): Z87.898 - PERSONAL HISTORY OF OTHER SPECIFIED CONDITIONS (4) Poor appetite Assessment/Plan: states has lost significant amount of weight in the last month continue regular diet monitor electrolytes ensure TID Code(s): R63.0 - ANOREXIA (5) Hyperbilirubinemia Assessment/Plan: monitor bilirubin levels Code(s): E80.6 - OTHER DISORDERS OF BILIRUBIN METABOLISM (6) Elevated liver enzymes Assessment/Plan: continue to monitor Code(s): R74.8 - ABNORMAL LEVELS OF OTHER SERUM ENZYMES (7) Portal vein thrombosis Assessment/Plan: per imaging there is a questionable portal vein thrombosis. will defer anticoagulation to heme/onc. received lovenox 40mg today Code(s): I81 - PORTAL VEIN THROMBOSIS (8) DVT prophylaxis Assessment/Plan: SCDs FEN Regular Diet Fluids dc'd d/t elevated BP monitor electrolytes Code(s): Z29.9 - ENCOUNTER FOR PROPHYLACTIC MEASURES, UNSPECIFIED Visit type - Emergency Visit Emergency Visit: Yes ED Registration Date: 03/24/20 Care time: The patient presented to the Emergency Department on the above date and was hospitalized for further evaluation of their emergent condition. - New Patient This patient is new to me today: No - Critical Care Critical Care patient: No - Discharge Referral Referred to [facility] Med P.C.: No - Medication Review Med list reviewed for High Risk Meds patients 65 and older: Yes
[2020-03-28] MEDS: oxyCODONE HCL 5 MG TABLET PO PRN ×3 (12:19→22:00)
[2020-03-29] MEDS: oxyCODONE HCL 5 MG TABLET PO PRN ×3 (06:48→22:19)
[2020-03-29] MEDS: ALPRAZolam 1 MG TABLET PO PRN (08:28)
[2020-03-29] MEDS ORDERED: oxyCODONE HCL 5 MG TABLET PO PRN (08:37)
[2020-03-29] MEDS: MULTIVITAMINS (DAILY MVI) TABLET (FP) PO SCH (10:30)
[2020-03-29] MEDS: FOLIC ACID 1 MG TABLET (FP) PO SCH (10:30)
[2020-03-29] MEDS: amLODIPine BESYLATE 5 MG TABLET (FP) PO SCH (10:30)
[2020-03-29] MEDS: THIAMINE HCL 100 MG TABLET (FP) PO SCH (10:31)
[2020-03-29] MEDS ORDERED: FENTANYL PATCH WASTE TD PRN (15:01)
--- NOTE | 2020-03-29 15:02 | PN ---
Physical Exam: SUBJECTIVE: Patient seen and examined at the bedside. Patient reports that his pain is uncontrolled and the oxycodone is not working adequately to control it. OBJECTIVE: Patient is a 74 male with a past medical history of right inguinal herina s/p repair in , ETOH abuse (quit 1 month ago, drank 1 pint vodka daily) and former smoker referred to ED for concern of US RUQ showing multiple liver masses and thickened GB wall seen at urgent care. He has an abdominal pelvis u/s 03/24/2020 which showed multiple hepatic masses suspicious for metastatic disease. ill defined mass at the head of the pancreas. tumor marker elevated. patient verbalizes abdominal discomfort. imaging: abd/pelvis Ct 03/24/2020: multiple hepatic masses suspicious for metastatic disease. ill defined mass at the head of the pancreas pain management, will start on fentanyl 12mcgs with breakthrough oxycodone 5mg prn Vital Signs Period Temp Pulse Resp BP Sys/De Paz Pulse Ox Last 24 Hr 97.6 F-98.8 F 68-79 18-20 116-138/68-88 94-97 GENERAL: The patient is awake, alert, and fully oriented, in no acute distress. HEAD: Normal with no signs of trauma. EYES: PERRL, extraocular movements intact, sclera anicteric, conjunctiva clear. No ptosis. ENT: Ears normal, nares patent, oropharynx clear without exudates, moist mucous membranes. NECK: Trachea midline, full range of motion, supple. LUNGS: Breath sounds equal, clear to auscultation bilaterally, no wheezes, no c rackles, no accessory muscle use. HEART: Regular rate and rhythm, S1, S2 without murmur, rub or gallop. ABDOMEN: tender RUQ, soft, nondistended, normoactive bowel sounds, no guarding, no rebound. EXTREMITIES: 2+ pulses, warm, well-perfused, no edema. NEUROLOGICAL: Normal speech, gait not observed. PSYCH: Anxious SKIN: Warm, dry, normal turgor, no rashes or lesions noted Generic Name Dose Route Start Last Admin Trade Name Freq PRN Reason Stop Dose Admin Alprazolam 1 mg 03/26/20 11:35 03/29/20 08:28 Xanax PO 1 mg Q12H PRN Administration ANXIETY Amlodipine Besylate 5 mg 03/24/20 06:00 03/29/20 10:30 Norvasc - PO 5 mg DAILY AIRAM Administration Fentanyl 1 patch 03/29/20 15:15 Duragesic 12mcg Patch - TD 04/05/20 15:01 Q72H AIRAM Folic Acid 1 mg 03/24/20 10:00 03/29/20 10:30 Folic Acid - PO 1 mg DAILY AIRAM Administration Miscellaneous 1 each 03/29/20 15:01 Duragesic Patch Waste MC PRN PRN PAIN Multivitamins/Minerals/Vitamin C 1 tab 03/24/20 10:00 03/29/20 10:30 Tab-A-Vit - PO 1 tab DAILY AIRAM Administration Oxycodone HCl 5 mg 03/29/20 15:01 Roxicodone - PO Q4H PRN PAIN LEVEL 7 - 10 Thiamine HCl 100 mg 03/25/20 10:00 03/29/20 10:31 Vitamin B1 - PO 100 mg DAILY AIRAM Administration ASSESSMENT/PLAN: Problem List - Problems (1) Abdominal pain Assessment/Plan: CT A/P done - positive for liver mets, possible hepatic vein thrombosis, focal density seen on pancreas on oxycodone for pain control but pain stills severe, start on a fentanyl patch 12mcgs with oxycodone for breakthrough gi consulted and following Code(s): R10.9 - UNSPECIFIED ABDOMINAL PAIN (2) 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 Code(s): C78.7 - SECONDARY MALIG NEOPLASM OF LIVER AND INTRAHEPATIC BILE DUCT; C80.1 - MALIGNANT (PRIMARY) NEOPLASM, UNSPECIFIED (3) Former consumption of alcohol Assessment/Plan: quit 1 month ago, drank 1 pint vodka daily no s/s withdrawl Code(s): Z87.898 - PERSONAL HISTORY OF OTHER SPECIFIED CONDITIONS (4) Poor appetite Assessment/Plan: states has lost significant amount of weight in the last month continue regular diet monitor electrolytes ensure TID Code(s): R63.0 - ANOREXIA (5) Hyperbilirubinemia Assessment/Plan: monitor bilirubin levels Code(s): E80.6 - OTHER DISORDERS OF BILIRUBIN METABOLISM (6) Elevated liver enzymes Assessment/Plan: continue to monitor Code(s): R74.8 - ABNORMAL LEVELS OF OTHER SERUM ENZYMES (7) Portal vein thrombosis Assessment/Plan: per imaging there is a questionable portal vein thrombosis. will defer anticoagulation to heme/onc. received lovenox 40mg on 03/28/2020 Code(s): I81 - PORTAL VEIN THROMBOSIS (8) DVT prophylaxis Assessment/Plan: SCDs FEN Regular Diet Fluids dc'd d/t elevated BP monitor electrolytes Code(s): Z29.9 - ENCOUNTER FOR PROPHYLACTIC MEASURES, UNSPECIFIED Visit type - Emergency Visit Emergency Visit: Yes ED Registration Date: 03/24/20 Care time: The patient presented to the Emergency Department on the above date and was hospitalized for further evaluation of their emergent condition. - New Patient This patient is new to me today: No - Critical Care Critical Care patient: No - Discharge Referral Referred to [facility] Med P.C.: No - Medication Review Med list reviewed for High Risk Meds patients 65 and older: Yes
[2020-03-29] MEDS ORDERED: fentaNYL 12mcg/hr PATCH.TD72 TD SCH (15:15)
--- NOTE | 2020-03-29 16:04 | PN.HO ---
Progress Note (short form) - Note Progress Note: 74 year old gentleman with RUQ pain for 1 1/2 months. He also mentioned has lost weight but does not know how much. Denies NVD. Has a pancreatic mass and multiple possible liver metastases. He underwent an IR mediated biopsy and has very elevated CA19-9. There is a questionable SMV/Portal Vein thrombosis clot and hematology has been called to comment on it. S: Has pain in the site of the biopsy O: Last Vital Signs Temp Pulse Resp BP Pulse Ox 97.6 F 73 18 116/68 94 L 03/29/20 14:55 03/29/20 14:55 03/29/20 14:55 03/29/20 14:55 03/29/20 10:00 General: NAD HEENT: MMM CVS: S1, S2 Abd: + mass RUQ Extremities: No edema Neuro: Moves all extremities Psych: Conversant/appropriate 03/27/20 06:09 03/27/20 06:09 Assessment and Plan: 74 y/o gentleman with likely metastatic pancreatic cancer with very elevated CA19-9 (~60,000) and a recent biopsy. CT scan indicates a possible SMV/Portal Vein Thrombosis Recommend: 1) Obtain a Doppler US of the SMV/PV to rule out/in thrombus. Consider also MRV. Obtain radiologist input. 2) If thrombosis present may consider anticoagulation (please confirm with IR physician who performed biopsy timing to initiate AC). Lovenox would be the preferred agent. Nevertheless, recent studies (Caravabill, SelectD) are showing that DOACs may not be inferior to LMWH. Therefore, Apixaban 10 mg BID 7 days and 5 mg BID afterwards can also be considered. 3) Needs to f/u with Dr. Bhardwaj/Dr. Decker for biopsy result discussion. 4) Thank you for this consultation
[2020-03-29] MEDS: HEPARIN NA (PORCINE) 5,000 UNITS/ML 1ML VIAL SQ SCH (22:19)
[2020-03-30] MEDS: ALPRAZolam 1 MG TABLET PO PRN (00:50)
[2020-03-30] MEDS: oxyCODONE HCL 5 MG TABLET PO PRN ×3 (05:16→20:22)
[2020-03-30 07:58] LABS: BASO % 0.7 % (0-2.0); EOS % 1.8 % (0-4.5); HEMATOCRIT 34.3 % (35.4-49); HEMOGLOBIN 11.6 GM/dL (11.7-16.9); LYMPH % 8.2 % (8-40); MCH 32.2 pg (25.7-33.7); MCHC 33.9 g/dl (32.0-35.9); MEAN CELL VOLUME 95.2 fl (80-96); MEAN PLT VOLUME 10.6 fl (7.5-11.1); MONO % 13.9 % (3.8-10.2); NEUT % 75.4 % (42.8-82.8); PLATELET COUNT 139 K/MM3 (134-434); RDW 12.7 % (11.9-15.9); WHITE BLOOD COUNT 7.4 K/mm3 (4.0-10.0)
[2020-03-30 08:13] LABS: BILIRUBIN,TOTAL 2.3 mg/dL (0.2-1); BLOOD UREA NITROGEN 28.5 mg/dL (7-18); CALCIUM 8.1 mg/dL (8.5-10.1); CREATININE 1.1 mg/dL (0.55-1.3); MAGNESIUM 2.6 mg/dL (1.8-2.4); POTASSIUM 3.9 mmol/L (3.5-5.1); TOT PROT 6.3 g/dl (6.4-8.2)
--- NOTE | 2020-03-30 10:21 | PN ---
Physical Exam: SUBJECTIVE: Patient seen and examined at bedside. Pt reports feeling fatigued, decreased appetite, still with abdominal pain. OBJECTIVE: Patient is a 74 male with a past medical history of right inguinal herina s/p repair in , ETOH abuse (quit 1 month ago, drank 1 pint vodka daily) and former smoker referred to ED on 03/24/2020 for concern of US RUQ showing multiple liver masses and thickened GB wall seen at urgent care. He had an abdominal pelvis u/s 03/24/2020 which showed multiple hepatic masses suspicious for metastatic disease. ill defined mass at the head of the pancreas. On 03/27/2020 he underwent a liver biopsy to rule out mets. Abd/pelvis u/s shows strong suspicion for pancreatic cancer as well as elevated tumor markers. CT scan concerning for a portal vein thrombosis, however portal vein thrombosis not seen on ultrasound done 03/30/2020. Discussed with Dr. Sommer (radiologist) - suggests repeating a CTA of the abdomen with attention to the SMV/portal vein since the doppler ultrasound done today does not adequately visualize the SMV. Will start therapeutic lovenox dosing until portal vein thrombis is ruled out imaging: abd/pelvis Ct 03/24/2020: multiple hepatic masses suspicious for metastatic disease. ill defined mass at the head of the pancreas Period Temp Pulse Resp BP Sys/De Paz Pulse Ox Last 24 Hr 97.6 F-98.7 F 66-78 18-20 100-117/62-68 100-100 GENERAL: The patient is awake, alert, and fully oriented, in no acute distress. HEAD: Normal with no signs of trauma. EYES: PERRL, extraocular movements intact, sclera anicteric, conjunctiva clear. No ptosis. ENT: Ears normal, nares patent, oropharynx clear without exudates, moist mucous membranes. NECK: Trachea midline, full range of motion, supple. LUNGS: Breath sounds equal, clear to auscultation bilaterally, no wheezes, no crackles, no accessory muscle use. HEART: Regular rate and rhythm, S1, S2 without murmur, rub or gallop. ABDOMEN: Soft, generalized tenderness to palpation, nondistended, normoactive bowel sounds, no guarding, no rebound. EXTREMITIES: 2+ pulses, warm, well-perfused, no edema. NEUROLOGICAL: Normal speech, gait not observed. PSYCH: Flat affect, appears sad, withdrawn. SKIN: Warm, dry, normal turgor, no rashes or lesions noted Laboratory Results - last 24 hr 03/30/20 03/30/20 06:19 06:19 WBC 7.4 RBC 3.60 L Hgb 11.6 L Hct 34.3 L MCV 95.2 MCH 32.2 MCHC 33.9 RDW 12.7 Plt Count 139 MPV 10.6 Absolute Neuts (auto) 5.6 Neutrophils % 75.4 Lymphocytes % 8.2 Monocytes % 13.9 H Eosinophils % 1.8 Basophils % 0.7 Nucleated RBC % 0 Sodium 138 Potassium 3.9 Chloride 103 Carbon Dioxide 27 Anion Gap 8 BUN 28.5 H Creatinine 1.1 Est GFR (CKD-EPI)AfAm 76.78 Est GFR (CKD-EPI)NonAf 66.24 Random Glucose 113 H Calcium 8.1 L Magnesium 2.6 H Total Bilirubin 2.3 H AST 89 H ALT 68 H Alkaline Phosphatase 366 H Total Protein 6.3 L Albumin 3.0 L Active Medications Generic Name Dose Route Start Last Admin Trade Name Freq PRN Reason Stop Dose Admin Alprazolam 1 mg 03/26/20 11:35 03/30/20 00:50 Xanax PO 1 mg Q12H PRN Administration ANXIETY Amlodipine Besylate 5 mg 03/24/20 06:00 03/29/20 10:30 Norvasc - PO 5 mg DAILY AIRAM Administration Fentanyl 1 patch 03/29/20 15:15 03/29/20 15:42 Duragesic 12mcg Patch - TD 04/05/20 15:01 1 patch Q72H AIRAM Administration Folic Acid 1 mg 03/24/20 10:00 03/29/20 10:30 Folic Acid - PO 1 mg DAILY AIRAM Administration Heparin Sodium (Porcine) 5,000 unit 03/29/20 22:00 03/29/20 22:19 Heparin - SQ Not Given BID AIRAM Miscellaneous 1 each 03/29/20 15:01 Duragesic Patch Waste TD PRN PRN PAIN Multivitamins/Minerals/Vitamin C 1 tab 03/24/20 10:00 03/29/20 10:30 Tab-A-Vit - PO 1 tab DAILY AIRAM Administration Oxycodone HCl 5 mg 03/29/20 15:01 03/30/20 05:16 Roxicodone - PO 5 mg Q4H PRN Administration PAIN LEVEL 7 - 10 Thiamine HCl 100 mg 03/25/20 10:00 03/29/20 10:31 Vitamin B1 - PO 100 mg DAILY AIRAM Administration ASSESSMENT/PLAN: Problem List - Problems (1) Portal vein thrombosis Assessment/Plan: per CT scan imaging there is a questionable portal vein thrombosis. doppler ultrasound of the abdomen done on 03/30/20 and ruled out a SMV/portal vein thrombus received lovenox 40mg on 03/28/[address] Sommer (radiologist) - suggests repeating a CTA of the abdomen with attention to the SMV/portal vein since the doppler ultrasound done today does not adequately visualize the SMV. patient likely has a portal vein thrombosis given malignancy. will start lovenox 70mg BID until portal vein thrombosis can be ruled out. Code(s): I81 - PORTAL VEIN THROMBOSIS (2) Abdominal pain Assessment/Plan: CT A/P done - positive for liver mets, possible hepatic vein thrombosis, focal density seen on pancreas on oxycodone for pain control but pain stills severe, start on a fentanyl patch 12mcgs with oxycodone 5 for breakthrough gi consulted and following Code(s): R10.9 - UNSPECIFIED ABDOMINAL PAIN (3) 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 Assessment/Plan: seen by Heme/Onc tumor markers elevated patient is s/p liver biopsy on 03/27/[address] Hook, pathology report pending. Instructed pt to follow up with Dr Bhardwaj or Dr Decker for liver biopsy pathology results patient and opting for alternative therapy and do not want to consider chemo/RT. Code(s): C78.7 - SECONDARY MALIG NEOPLASM OF LIVER AND INTRAHEPATIC BILE DUCT; C80.1 - MALIGNANT (PRIMARY) NEOPLASM, UNSPECIFIED (4) Former consumption of alcohol Assessment/Plan: quit 1 month ago, drank 1 pint vodka daily no s/s withdrawl counseled pt regarding alcohol drinking cessation Code(s): Z87.898 - PERSONAL HISTORY OF OTHER SPECIFIED CONDITIONS (5) Poor appetite Assessment/Plan: states has lost significant amount of weight in the last month continue regular diet monitor electrolytes ensure TID Code(s): R63.0 - ANOREXIA (6) Hyperbilirubinemia Assessment/Plan: monitor bilirubin levels Code(s): E80.6 - OTHER DISORDERS OF BILIRUBIN METABOLISM (7) Elevated liver enzymes Assessment/Plan: continue to monitor Code(s): R74.8 - ABNORMAL LEVELS OF OTHER SERUM ENZYMES (8) DVT prophylaxis Assessment/Plan: SCD Start Lovenox 70mg bid until portal vein thrombis scan be ruled out, per JESSICA SIBLEY to start anticoagulation post liver biopsy. FEN Regular Diet with supplements monitor electrolytes Code(s): Z29.9 - ENCOUNTER FOR PROPHYLACTIC MEASURES, UNSPECIFIED Visit type - Emergency Visit Emergency Visit: Yes ED Registration Date: 03/24/20 Care time: The patient presented to the Emergency Department on the above date and was hospitalized for further evaluation of their emergent condition. - New Patient This patient is new to me today: No - Critical Care Critical Care patient: No - Discharge Referral Referred to [facility] Med P.C.: No - Medication Review Med list reviewed for High Risk Meds patients 65 and older: Yes
[2020-03-30] MEDS: FOLIC ACID 1 MG TABLET (FP) PO SCH (11:24)
[2020-03-30] MEDS: MULTIVITAMINS (DAILY MVI) TABLET (FP) PO SCH (11:24)
[2020-03-30] MEDS: amLODIPine BESYLATE 5 MG TABLET (FP) PO SCH (11:24)
[2020-03-30] MEDS: THIAMINE HCL 100 MG TABLET (FP) PO SCH (11:26)
[2020-03-30] MEDS: HEPARIN NA (PORCINE) 5,000 UNITS/ML 1ML VIAL SQ SCH (11:26)
[2020-03-30] MEDS ORDERED: oxyCODONE HCL 5 MG TABLET PO PRN (14:15)
[2020-03-30] MEDS ORDERED: SODIUM CHLORIDE 1,000 ML IV SCH ×2 (14:30→15:58)
--- NOTE | 2020-03-30 15:30 | PN ---
Progress Note (short form) - Note Progress Note: Doppler without significant thrombus in portal vein If LFTs continue to rise, Triple phase MRI of the abdomen with and without contrast with MRCP to eval portal system as well as biliary tract to assess for impending obstruction from tumor burden. If so, consideration should be given for transfer for palliative metallic biliary stent. placement. Problem List - Problems (1) Liver metastases Code(s): C78.7 - SECONDARY MALIG NEOPLASM OF LIVER AND INTRAHEPATIC BILE DUCT
[2020-03-30] MEDS ORDERED: ENOXAPARIN NA (PORCINE) 80 MG/0.8 ML DISP.SYRIN SQ SCH (16:00)
[2020-03-30] MEDS ORDERED: ENOXAPARIN NA (PORCINE) 40 MG/0.4 ML DISP.SYRIN SQ SCH (21:00)
[2020-03-30] MEDS: APIXABAN 5 MG TABLET PO SCH (21:45)
[2020-03-31] MEDS: oxyCODONE HCL 5 MG TABLET PO PRN ×2 (06:03→10:26)
[2020-03-31 08:18] LABS: ALBUMIN 2.9 g/dl (3.4-5.0); BILIRUBIN,TOTAL 2.1 mg/dL (0.2-1); BLOOD UREA NITROGEN 23.2 mg/dL (7-18); CALCIUM 8.2 mg/dL (8.5-10.1); CREATININE 0.9 mg/dL (0.55-1.3); MAGNESIUM 2.8 mg/dL (1.8-2.4); POTASSIUM 3.9 mmol/L (3.5-5.1)
[2020-03-31 08:47] LABS: BASO % 0.7 % (0-2.0); HEMATOCRIT 35.4 % (35.4-49); HEMOGLOBIN 11.7 GM/dL (11.7-16.9); LYMPH % 8.1 % (8-40); MCH 31.5 pg (25.7-33.7); MCHC 33.1 g/dl (32.0-35.9); MEAN CELL VOLUME 95.2 fl (80-96); MEAN PLT VOLUME 10.7 fl (7.5-11.1); NEUT % 75.2 % (42.8-82.8); PLATELET COUNT 127 K/MM3 (134-434); RBC 3.72 M/mm3 (4.00-5.60); WHITE BLOOD COUNT 6.2 K/mm3 (4.0-10.0)
[2020-03-31 09:47] LABS: PLATELET ESTIMATE DECREASED
[2020-03-31] MEDS: APIXABAN 5 MG TABLET PO SCH (10:18)
[2020-03-31] MEDS: THIAMINE HCL 100 MG TABLET (FP) PO SCH (10:18)
[2020-03-31] MEDS: MULTIVITAMINS (DAILY MVI) TABLET (FP) PO SCH (10:18)
[2020-03-31] MEDS: FOLIC ACID 1 MG TABLET (FP) PO SCH (10:18)
[2020-03-31] MEDS: amLODIPine BESYLATE 5 MG TABLET (FP) PO SCH (10:18)
[2020-03-31 10:36] VITALS: BP 135/78; PULSE 76; TEMP 97.3
--- NOTE | 2020-03-31 15:52 | PATH ---
Surgical Pathology Report Patient Name: TRENT GALLAGHER Med. Rec. #: [id number] /Age/Gender: 1945 (Age: 74) / M Account: [id number] Location: 4 W TELEMETRY U Taken: 03/27/2020 Received: 03/27/2020 Reported: 03/31/2020 Physicians: Cammie Agarwal MD Dubis Elina Beleno-Hamilton, F.N.P. Onyekachi Ifudu, MD Specimen(s) Received LIVER Clinical History 74-year-old male with multiple liver mass and pancreatic head mass Final Diagnosis Liver, ultrasound guided core biopsy: Adenocarcinoma, well to moderately differentiated. SEE Comment. Comment: Histologic sections show well-formed and abortive malignant glands imbedded in fibrous stroma. Imunohistochemical stains performed and interpreted at [facility] show the tumor is positive for AE1/3, CK7, and CK20 (patchy). Additional immunohistochemical stains performed at [facility], [place] ([id number]) and interpreted at [facility] show the tumor is positive for CA19.9 and CEA(m). Rare weak positive staining for CDX2 and SATB2 are noted. Although non-specific, the immunophenotype and histomorphology are compatible with pancreatico-biliary tract origin. Suggest clinical correlation. Clinical presentation of pancreatic head mass and multiple liver masses noted. Findings discussed with Dr. Olsen, 03/31/20. Positive and negative controls (internal if applicable) show appropriate results. Electronically Signed Sariah Siu M.D. Gross Description Received in formalin, labeled "liver" are 3 farah, cylindrical portions of soft tissue each measuring 1.7 cm in length and less than 0.1 cm in diameter. The specimen is submitted in toto in one cassette. KWAlejandro/03/27/2020 virgil03/27/2020
--- NOTE | 2020-03-31 17:38 | DS ---
Physical Exam: SUBJECTIVE: Irritable, wants more pain medication, however pt has been seen throughout the day somnolent at peak opiate effect. Pathology preliminary showing Adenocarcinoma of liver. Pt refusing further imaging at this point and will continue Eliquis BID for portal vein thrombosis seen on prior imaging. Will need f/u outpatient and possibly repeat imaging OBJECTIVE: Vital Signs Period Temp Pulse Resp BP Sys/De Paz Pulse Ox Last 24 Hr 97.3 F-98.1 F 65-77 18-20 124-135/55-78 93-97 PHYSICAL EXAM GENERAL: The patient is awake, alert, and fully oriented, in no acute distress. HEENT: ALEC, EOMI, MMM LUNGS: CTA bilaterally, no wheezes, no crackles, no accessory muscle use. HEART: RRR, S1, S2 without murmur ABDOMEN: Soft, NT/ND, normoactive bowel sounds, no guarding, no bleeding from biopsy site. EXTREMITIES: 2+ pulses, warm, well-perfused, no edema. PSYCH: Normal mood, normal affect. SKIN: Warm, dry, no rashes LABS Laboratory Results - last 24 hr 03/31/20 03/31/20 05:40 05:40 WBC 6.2 RBC 3.72 L Hgb 11.7 Hct 35.4 MCV 95.2 MCH 31.5 MCHC 33.1 RDW 13.0 Plt Count 127 L MPV 10.7 Absolute Neuts (auto) 4.6 Neutrophils % 75.2 Lymphocytes % 8.1 Monocytes % 14.0 H Eosinophils % 2.0 Basophils % 0.7 Nucleated RBC % 0 Platelet Estimate Decreased Platelet Comment Present Sodium 140 Potassium 3.9 Chloride 106 Carbon Dioxide 26 Anion Gap 8 BUN 23.2 H Creatinine 0.9 Est GFR (CKD-EPI)AfAm 97.86 Est GFR (CKD-EPI)NonAf 84.43 Random Glucose 114 H Calcium 8.2 L Magnesium 2.8 H Total Bilirubin 2.1 H AST 81 H ALT 61 Alkaline Phosphatase 339 H Total Protein 6.0 L Albumin 2.9 L HOSPITAL COURSE: Date of Admission:03/24/20 Date of Discharge: 03/31/20 Pt admitted on 03/24/2020 due to concern of RUQ U/S showing multiple liver masses and thickened GB wall seen at urgent care. Patient was admitted to the hospital where he underwent a liver biopsy on 03/27/2020 for possible metastasis. On imaging, patient was noted to have a portal vein thrombosis. Pt was not fully visualized and subsequent US did not show any thrombus. Patient was placed on Eliquis on interim and then he refused follow-up imaging. Due to visualization on CT A/P and likely malignancy, patient is to continue Eliquis therapy and follow-up as an outpatient with hematology and oncology. Pathology report should be finalized shortly and results relayed to patient and family (son Julian: [phone]). Discussed with family need for patient to continue to follow-up with below referrals. Fentanyl patch and oxycodone 5mg PRN have been prescribed to pharmacy and if escalating pain requirements occur he should seek PM&R. Minutes to complete discharge: 33 Discharge Summary Problems reviewed: Yes Reason For Visit: LIVER NEOPLASM Condition: Improved - Instructions Diet, Activity, Other Instructions: You were seen here for your liver mass and gallbladder findings seen at urgent care. You have multiple masses in your liver and underwent a liver biopsy. The pathology of the liver biopsy will take time to result and so you must follow-up with your primary care provider. In addition, your scan showed there was a blood clot in your liver. You were started on blood thinners and need to follow up with hematologists within 1 month. You were provided their contact information in this packet. You were also provided with Von's referral as you have discuss during your course here. MEDICATIONS: All medications have been sent to the pharmacy You were given a Fentanyl patch for pain to be used every 3 days You were given Oxycodone to help with breakthrough pain You were also given the blood thinner, Eliquis to take TWICE daily FOLLOW-UP: Please follow-up with your primary care provider You were given a referral to the oncology and hematology teams You were given a referral to Dr. Longoria If your pain medication needs to be adjusted you will need to see your outpatient doctor and possibly a card painter. Referrals: Tony Longoria [Non Staff, Medical] - Lashae Patel MD [Staff Physician] - Chato Decker MD [Staff Physician] - Earl Munoz MD [Staff Physician] - Disposition: HOME - Home Medications Comprehensive Discharge Medication List: Ambulatory Orders FENTANYL 12mcg PATCH [DURAGESIC 12mcg PATCH -] 1 patch TD Q72H #10 patch.td72 MDD 1 09/21/20 Folic Acid - 1 mg PO DAILY #30 tablet 03/30/20 oxyCODONE HCL [Roxicodone -] 5 mg PO Q8H PRN 7 Days #21 tablet MDD 3 03/30/20 Apixaban [Eliquis -] 5 mg PO BID #30 tablet 03/31/20 This patient is new to me today: Yes Date on this admission: 03/31/20 Emergency Visit: Yes ED Registration Date: 03/24/20 Care time: The patient presented to the Emergency Department on the above date and was hospitalized for further evaluation of their emergent condition. Critical Care patient: No - Discharge Referral Referred to [facility] Med P.C.: No
== END 2020-03-31 17:32 | disposition home or self-care (01) | DRG 435 ==
LOC: JER 17:12 → JERBED 03-24 01:32 → J4W 03-24 23:53
PROVIDERS: ADMIT Internal Medicine; ATTEND Internal Medicine
PROC: 0FD13ZX Extraction of Right Lobe Liver, Percutaneous Approach, Diagnostic (ICD-10-PCS; principal; 2020-03-27)
DX: C78.7 Secondary malignant neoplasm of liver and intrahepatic bile duct (principal); I81 Portal vein thrombosis; N17.9 Acute kidney failure, unspecified; C25.9 Malignant neoplasm of pancreas, unspecified; R00.1 Bradycardia, unspecified; R63.0 Anorexia; Z68.29 Body mass index [BMI] 29.0-29.9, adult; E80.6 Other disorders of bilirubin metabolism; R74.8 Abnormal levels of other serum enzymes; K40.90 Unilateral inguinal hernia, without obstruction or gangrene, not specified as recurrent; Z87.898 Personal history of other specified conditions
CPT/HCPCS: 36415; 71045-TC-FY; 74174-TC; 74177-TC; 76705-TC; 76942-TC; 80053; 81003; 82105; 82248; 82378; 82550; 83690; 83735; 84100; 84484; 85025; 85027; 85610; 86301; 86304; 87086; 87899; 88305-TC; 88341-TC; 93005; 93010; 93975; 97116-GP; 97161-GP; 99285-25; J1644; Q9967; U0003

== ENCOUNTER 2020-04-10 18:51 | Inpatient (IN) | payer OTHER ==
--- NOTE | 2020-04-10 19:04 | PDOC ---
History of Present Illness - General Chief Complaint: Edema Stated Complaint: Edema Time Seen by Provider: 04/10/20 19:04 Past History - Medical History Allergies/Adverse Reactions: Allergies Allergy/AdvReac Type Severity Reaction Status Date / Time No Known Allergies Allergy Verified 04/10/20 18:54 Home Medications: Ambulatory Orders FENTANYL 12mcg PATCH [DURAGESIC 12mcg PATCH -] 1 patch TD Q72H #10 patch.td72 MDD 1 03/30/20 Folic Acid - 1 mg PO DAILY #30 tablet 03/30/20 oxyCODONE HCL [Roxicodone -] 5 mg PO Q8H PRN 7 Days #21 tablet MDD 3 03/30/20 Apixaban [Eliquis -] 5 mg PO BID #30 tablet 03/31/20 COPD: No - Immunization History Immunization Up to Date: No - Psycho-Social/Smoking History Smoking History: Former smoker Have you smoked in the past 12 months: No
[2020-04-10] MEDS ORDERED: HEPARIN NA (PORCINE) 5,000 UNITS/ML 1ML VIAL IVPUSH PRN ×2 (20:13)
[2020-04-10] MEDS ORDERED: HYDROmorphone HCL CARPU-JECT 2 MG/1 ML DISP.SYRIN IVPUSH ONE ×2 (20:13→21:47)
[2020-04-10] MEDS ORDERED: HYDROmorphone HCl 2 MG/ML VIAL ONE ×2 (20:15→21:51)
--- NOTE | 2020-04-10 20:16 | PDOC ---
Documentation entered by Caridad Lerner SCRIBE, acting as scribe for Minal Kraft MD. Minal Kraft MD: This documentation has been prepared by the Yann benz Xhesika, SCRIBE, under my direction and personally reviewed by me in its entirety. I confirm that the documentation accurately reflects all work, treatment, procedures, and medical decision making performed by me. History of Present Illness - General Chief Complaint: Edema Stated Complaint: Edema Time Seen by Provider: 04/10/20 19:04 History Source: Patient Exam Limitations: No Limitations - History of Present Illness Initial Comments: 04/10/20 19:20 HPI 74Y/O M with a pmh of stage IV pancreatic Ca, former smoker (quit 17 years ago) and former heavy drinker (quit 1 month ago) who presents to the ED for RUE swelling, pain and itchiness x1 week. Pt was seen and admitted at [facility] on 03/23 - 03/31 for liver masses and thickened GB wall seen at urgent care. Pt was noted to have multiple masses in his liver and underwent a liver biopsy on 03/27/2020 for possible metastasis. Pt was noted to have blood clot in his liver and was started on Eliquis for anticoagulant. Pt had a positive outpatient DVT on US today and was sent to the ED for further evaluation. Pt states he ran out of his Eliquis last week and was not able to get a prescription refill. Pt reports difficulty sleeping and weight loss. Son at bedside reports the the pt has been endorsing labored breathing and chest pain. Denies fever, chills, palpitation, dizziness, weakness, N, V, D, abdominal pain, bladder and bowel problems, leg swelling. Denies RUE and RLE tingling/ numbness. No sick contacts or travel. No new changes in medications. Allergies: NKDA Past Medical History: See HPI Social history: Lives with family. No tobacco, ETOH or drug use. Surgical history: Meds: as documented in EMR PMD: Dr. Peter Oncology: Tony Nicholas GENERAL/CONSTITUTIONAL: No fever or chills. No weakness. no sweats. +difficulty sleeping. +weight loss HEAD, EYES, EARS, NOSE AND THROAT: no headache or dizziness. CARDIOVASCULAR: +chest pain. No palpitations, syncope. +arm edema RESPIRATORY: +SOB. No cough, wheezing, or hemoptysis. GASTROINTESTINAL No nausea/vomiting. No diarrhea or constipation. No bloody stools. MUSCULOSKELETAL: No joint or muscle swelling or pain. No decreased range of motion. No neck or back pain. SKIN: +RUE swelling, pain and itchiness. NEUROLOGIC: alert and oriented appropriately No headache, dizziness, loss of consciousness, or change in strength/sensation. No gait instability. HEMATOLOGIC/LYMPHATIC: No anemia, easy bruising/bleeding, +history of thrombosis/clots ALLERGIC/IMMUNOLOGIC: No allergies PSYCH: no anxiety/depression All other systems reviewed and negative, or as documented in HPI. Physical exam General: awake and alert, NAD. HEENT: NCAT, PERRL, EOMI, clear conjunctiva, anicteric, moist mucous membranes, clear oropharynx, no oral lesions.. Neck: neck supple, FROM Resp: CTAB, normal and even respirations, no respiratory distress CVS: RRR, no murmurs, 2+ peripheral pulses throughout, no peripheral edema Abdomen: soft, NTND, no rebound or guarding. Back: nontender, normal inspection and ROM] MSK: +RUE nonpitting edema, [place] x4, ROM intact. No clubbing or cyanosis. normal bulk and tone. Extremities: no calf tenderness. +RUE pitting edema Neuro: alert, oriented appropriately; no focal neurologic deficits Skin: warm and well perfused, cap refill <2 sec, normal color PSYCH: +irritable/ cranky, poorly cooperative 04/10/20 19:40 04/10/20 20:02 04/10/20 20:14 04/11/20 18:15 Past History - Medical History Allergies/Adverse Reactions: Allergies Allergy/AdvReac Type Severity Reaction Status Date / Time No Known Allergies Allergy Verified 04/10/20 21:03 Home Medications: Ambulatory Orders FENTANYL 12mcg PATCH [DURAGESIC 12mcg PATCH -] 1 patch TD Q72H #10 patch.td72 MDD 1 03/30/20 Folic Acid - 1 mg PO DAILY #30 tablet 03/30/20 oxyCODONE HCL [Roxicodone -] 5 mg PO Q8H PRN 7 Days #21 tablet MDD 3 03/30/20 Apixaban [Eliquis -] 5 mg PO BID #30 tablet 03/31/20 Cancer: Yes (stage 4 pancreatic ca) COPD: No - Immunization History Immunization Up to Date: No - Psycho-Social/Smoking History Smoking History: Former smoker Have you smoked in the past 12 months: No Information on smoking cessation initiated: No - Substance Abuse Hx (Audit-C & DAST Scrn) How often the patient has a drink containing alcohol: Never Score: In Men: 4 or > Positive; In Women: 3 or > Positive: 0 Screen Result (Pos requires Nsg. Audit-10AR): Negative In the last yr the pt used illegal drug/Rx for NonMed reason: No Score: Yes response is considered Positive: 0 Screen Result (Positive result requires Nsg. DAST-10): Negative *Physical Exam - Vital Signs Last Vital Signs Temp Pulse Resp BP Pulse Ox 98.4 F 89 18 121/83 100 04/10/20 18:54 04/10/20 18:54 04/10/20 18:54 04/10/20 18:54 04/10/20 18:54 Heart Score/ECG Review #1 ECG reviewed & interpreted by me at: 21:10 General ECG Interpretation: Sinus Rhythm, Normal Rate, Normal Intervals 04/10/20 21:12 EKG normal sinus rhythm 88 bpm, no interval abnormalities, narrow QRS, ST and T wave segments and morphology normal. Nonspecific T wave abnormalities ED Treatment Course - LABORATORY CBC & Chemistry Diagram: 04/11/20 06:12 04/11/20 06:12 Medical Decision Making - Medical Decision Making 04/10/20 20:15 Vital Signs Temp Pulse Resp BP Pulse Ox 98.4 F 89 18 121/83 100 04/10/20 18:54 04/10/20 18:54 04/10/20 18:54 04/10/20 18:54 04/10/20 18:54 04/10/20 20:17 Vital signs reviewed within normal limits, normal saturations, no active respiratory distress Hemodynamically appropriate Patient from outpatient ultrasound study revealing extensive right upper extremity DVT extending from radial and ulnar veins, to brachial, axillary and subclavian veins and associated superficial thrombophlebitis Given patient is also complaining of intermittent chest pain, shortness of breath and arm pain and the extensive DVT, will pursue CTA to evaluate for PE Heparin drip ordered for anticoagulation Patient initially hesitant on being admitted, as well as getting current work-up done as he was not satisfied with his previous hospitalization. After extensive discussion with his results and risk of complications and sequelae, patient agreed to pain control, IV placement, labs, heparin and CT imaging and admission. 04/10/20 20:19 cxr is clear, no acute pathology, portable study Patient with GFR of 39 and creatinine 1.7, no prior history of diabetes, high blood pressure, renal insufficiency or kidney disease, discussed the risks and benefits of getting IV contrast with CT scan. Patient has signed a consent and agrees to IV contrast study, verbalizing understanding. IVF will be given to perfuse kidneys. labs and lytes otherwise unremarkable. leukocytosis 18K noted, likely inflammatory in setting of PE. 04/10/20 23:36 CTA with Acute pulmonary embolism is noted in the right upper and lower lobes, no infiltrate or pleural effusion is noted. There is some dependent atelectasis. Metastatic liver disease is seen. pt was suggested to be transferred for extensive DVT/PE, however he declines. he is otherwise stable hemodynamically negative troponin no signs of RV strain on CT scan. dilaudid prn for pain control, as he is on oxycodone and fentanyl patches will admit to symphony, telemetry for close monitoring, medical management, DVT/PE on heparin gtt, pain control and heme/onc eval. admit to Dr Ty 04/10/20 23:40 04/10/20 23:55 04/10/20 23:55 Discharge - Discharge Information Problems reviewed: Yes Clinical Impression/Diagnosis: Acute pulmonary embolism, Pancreatic cancer Deep vein thrombosis (DVT) of axillary vein of right upper extremity Qualifiers: Chronicity: acute Qualified Code(s): I82.A11 - Acute embolism and thrombosis of right axillary vein Deep vein thrombosis (DVT) of brachial vein of right upper extremity Qualifiers: Chronicity: acute Qualified Code(s): I82.621 - Acute embolism and thrombosis of deep veins of right upper extremity Condition: Fair - Admission Yes - Follow up/Referral - Patient Discharge Instructions - Post Discharge Activity
[2020-04-10 20:33] LABS: BASO % 0.2 % (0-2.0); EOS % 0.1 % (0-4.5); LYMPH % 4.5 % (8-40); MCH 31.4 pg (25.7-33.7); MCHC 33.4 g/dl (32.0-35.9); MEAN CELL VOLUME 94.2 fl (80-96); MEAN PLT VOLUME 10.3 fl (7.5-11.1); MONO % 8.7 % (3.8-10.2); NEUT % 86.5 % (42.8-82.8); PLATELET COUNT 125 K/MM3 (134-434); RBC 4.14 M/mm3 (4.00-5.60); RDW 14.2 % (11.9-15.9)
[2020-04-10 20:51] LABS: INR 2.22 (0.83-1.09); PROTHROMBIN TIME (PATIENT) 26.4 SEC (9.7-13.0)
[2020-04-10 20:54] LABS: ACTIVATED PTT 34.3 SECONDS (25.2-36.5)
[2020-04-10 21:08] LABS: ANION GAP 12 MMOL/L (8-16); BLOOD UREA NITROGEN 39.4 mg/dL (7-18); CALCIUM 8.4 mg/dL (8.5-10.1); CHLORIDE 99 mmol/L (98-107); CO2 25 mmol/L (21-32); CREATININE 1.7 mg/dL (0.55-1.3); GLUCOSE,RANDOM 163 mg/dL (74-106); POTASSIUM 4.2 mmol/L (3.5-5.1); SGOT/AST 110 U/L (15-37); SGPT/ALT 65 U/L (13-61); SODIUM 136 mmol/L (136-145); TOT PROT 6.8 g/dl (6.4-8.2)
[2020-04-10 21:15] LABS: ALK PHOS 282 U/L (45-117); BILIRUBIN,TOTAL 4.7 mg/dL (0.2-1)
[2020-04-10] MEDS ORDERED: SODIUM CHLORIDE 0.9% 500 ML INFUS.BAG IV ONE (21:47)
[2020-04-10] MEDS ORDERED: HEPARIN INFUSION - 25,000 UNITS/500 ML INFUS.BAG IVPB ONE (22:05)
[2020-04-10] MEDS: HEPARIN - 25,000 UNIT in SODIUM CHLORIDE 495 ML IV SCH (22:50)
--- OUTSIDE RECORDS SUMMARY | 2020-04-10 23:56 | XMS ---
:1945 Author Organization [facility] Support Name Relationship Address Phone SIMONA GALLAGHER SON [address] [place] [phone] RE Unavailable Unavailable Unavailable DEBORAH GENAO [address] [place] [address] DEBORAH GENAO Spouse [address] [place] [address] Re-disclosure Warning The records that you are [...] is protected by Article 27-F of the [facility] Public Health law. If you continue you may haveaccess to information: Regarding HIV / AIDS; Provided by facilities licensed or operated by the [facility] Office of Mental Health; or Provided by the [facility] Office for People With Developmental Disabilities. If such information is present, then the following [facility] mandated warning applies: This information has been [...] law may result in a fine or custodial sentence or both. A general authorization for the release of medical or other information is NOT sufficient authorization for further disclosure. Insurance Providers Payer name Policy type Policy ID Covered Covered democrat's Policy P jennifer / Coverage democrat ID relationship to [employer] Inf ormation type [employer] HIP MEDICARE [id number] SP [id number] VIP SUKHJINDER MEDICARE [id number] SP [id number] HIP MYSTERY SHOPPER [id number] SP [id number] HIP MYSTERY SHOPPER [id number] Results ID Date Data Source [id number] 03/23/2020 11:25:00 PM EDT [facility] Name Value Range Interpretation Description Data Sup porting Code Source(s) Document(s ) SARS [facility] coronavirus 2 RNA This lab was ordered by [facility] and reported by [facility]. Procedure
--- NOTE | 2020-04-11 00:38 | PN ---
Teaching Attending Note Name of Resident: Charis Sung ATTENDING PHYSICIAN STATEMENT I saw and evaluated the patient. I reviewed the resident's note and discussed the case with the resident. I agree with the resident's findings and plan as documented. SUBJECTIVE: 74 y/o M w/ Stage IV pancreatic cancer, former smoker and EtOH abuse , portal vein thrombosis adm with Acute DVT/PE. OBJECTIVE: VS: Afeb HR 78 BP 121/83 Labs: WBC 18 H/H wnl INR 2.22 BMP: BUN/Creat 39/1.7 prev 0.9 03/2020 AST/ALT /ALP 110/65/282 Imaging: CTA Chest- Acute PE in right upper and lower lobes; minimal right lower lobe discoid atelectasis; Multiple hepatic mass lesions suggestive of metastatic neoplastic disease. ASSESSMENT AND PLAN: Acute PE in setting of Stage IV Pancreatic Cancer No CT evidence of right heart strain PTT Q 6 hr Continue with heparin drip Tele monitoring Palliative care consult Trop x 1 neg Obtain BNP Leukocytosis unlikely infectious source Repeat WBC Hold abx for now Monitor for fevers SY Renal U/S Monitor creatinine IV LR @ 83cc/hr x 12 hr Supp care: DVT Px as above Diet regular
[2020-04-11] MEDS: LACTATED RINGERS SOLUTION 1,000 ML/1,000 ML INFUS.BAG IV SCH ×2 (01:50→14:09)
[2020-04-11 02:38] LABS: ALBUMIN 2.7 g/dl (3.4-5.0); ANION GAP 7 MMOL/L (8-16); BILIRUBIN,TOTAL 4.6 mg/dL (0.2-1); BLOOD UREA NITROGEN 34.4 mg/dL (7-18); CALCIUM 7.9 mg/dL (8.5-10.1); CHLORIDE 102 mmol/L (98-107); CO2 25 mmol/L (21-32); CREATININE 1.5 mg/dL (0.55-1.3); GLUCOSE,RANDOM 124 mg/dL (74-106); POTASSIUM 5.2 mmol/L (3.5-5.1); SGOT/AST 118 U/L (15-37); SGPT/ALT 58 U/L (13-61); SODIUM 134 mmol/L (136-145)
[2020-04-11 02:39] LABS: ALK PHOS 247 U/L (45-117)
--- NOTE | 2020-04-11 03:04 | HP ---
CHIEF COMPLAINT: Arm pain and swelling PCP: Dr. Peter HISTORY OF PRESENT ILLNESS: Pt is a 75 year old male with recently diagnosed stage IV pancreatic cancer, former smoker and EtOH abuse presenting to the ED with R arm pain, swelling and discolouration for which he went to his oncologist. There he was found to have DVT and was referred to the ED. Pt states his R arm has been worsening for the past week, however it became more swollen in the last day which caused him to go to his oncologoist. Pt is on Eliquis 5mg BID for portal vein thrombosis from last admission recently at [facility]. However, pt states he ran out of his medication one week prior and has nt been taking it since. Pt denies CP, SOB, palpitations, diarrhea, constipation. ER course was notable for: (1) CTA showing RUL and RLL pulmonary embolism, and multiple hepatic masses (2)Heparn gtt started (3) PAST MEDICAL HISTORY: as stated in HPI Social History: Smoking: quit 20 years ago Alcohol: quit in february, drank 1 pint Vodka daily Drugs: Denies Allergies No Known Allergies Allergy (Verified 04/10/20 21:03) HOME MEDICATIONS: Home Medications Medication Instructions Recorded FENTANYL 12mcg PATCH [DURAGESIC 1 patch TD Q72H #10 patch.td72 MDD 03/30/20 12mcg PATCH -] 1 Folic Acid - 1 mg PO DAILY #30 tablet 03/30/20 oxyCODONE HCL [Roxicodone -] 5 mg PO Q8H PRN 7 Days #21 tablet 03/30/20 MDD 3 Apixaban [Eliquis -] 5 mg PO BID #30 tablet 03/31/20 REVIEW OF SYSTEMS CONSTITUTIONAL: Weight loss Absent: fever, chills, diaphoresis, generalized weakness, malaise, loss of appetite HEENT: Absent: rhinorrhea, nasal congestion, throat pain, throat swelling, difficulty swallowing, mouth swelling, ear pain, eye pain, visual changes CARDIOVASCULAR: Absent: chest pain, syncope, palpitations, irregular heart rate, lightheadedness, peripheral edema RESPIRATORY: Absent: cough, shortness of breath, dyspnea with exertion, orthopnea, wheezing, stridor, hemoptysis GASTROINTESTINAL: Absent: abdominal pain, abdominal distension, nausea, vomiting, diarrhea, constipation, melena, hematochezia GENITOURINARY: Absent: dysuria, frequency, urgency, hesitancy, hematuria, flank pain, genital pain MUSCULOSKELETAL: RUE edema, erythema, pruritic Absent: myalgia, arthralgia, joint swelling, back pain, neck pain SKIN: Absent: rash, itching, pallor HEMATOLOGIC/IMMUNOLOGIC: Absent: easy bleeding, easy bruising, lymphadenopathy, frequent infections ENDOCRINE: Absent: unexplained weight gain, unexplained weight loss, heat intolerance, cold intolerance NEUROLOGIC: Absent: headache, focal weakness or paresthesias, dizziness, unsteady gait, seizure, mental status changes, bladder or bowel incontinence PSYCHIATRIC: Absent: anxiety, depression, suicidal or homicidal ideation, hallucinations. PHYSICAL EXAMINATION Vital Signs - 24 hr 04/10/20 04/10/20 04/10/20 18:54 20:20 21:44 Temperature 98.4 F Pulse Rate 89 Pulse Rate [ 78 Right Radial] Respiratory 18 16 Rate Blood Pressure 121/83 Blood Pressure 125/84 [Left Arm] O2 Sat by Pulse 100 100 100 Oximetry (%) GENERAL: Awake, alert, and fully oriented, in no acute distress. HEAD: Normal with no signs of trauma. EYES: Pupils equal, round and reactive to light, extraocular movements intact, sclera anicteric, conjunctiva clear. No lid lag. EARS, NOSE, THROAT: Ears normal, nares patent, oropharynx clear without exudates. Moist mucous membranes. NECK: Normal range of motion, supple without lymphadenopathy, JVD, or masses. LUNGS: Breath sounds equal, clear to auscultation bilaterally. No wheezes, and no crackles. No accessory muscle use. HEART: Regular rate and rhythm, normal S1 and S2 without murmur, rub or gallop. ABDOMEN: Soft, nontender, not distended, normoactive bowel sounds, no guarding, no rebound, no masses. No hepatomegaly or splenomegaly. MUSCULOSKELETAL: Normal range of motion at all joints. No bony deformities or tenderness. No CVA tenderness. UPPER EXTREMITIES: 2+ pulses, warm, well-perfused. No cyanosis. No clubbing. No peripheral edema. RUEnonpitting edema, erythema LOWER EXTREMITIES: 2+ pulses, warm, well-perfused. No calf tenderness. No peripheral edema. NEUROLOGICAL: Cranial nerves II-XII intact. Normal speech. Normal gait. PSYCHIATRIC: Cooperative. Good eye contact. Appropriate mood and affect. SKIN: Warm, dry, normal turgor, no rashes or lesions noted, normal capillary refill. Laboratory Results - last 24 hr 04/10/20 04/10/20 04/10/20 20:10 20:10 20:10 WBC 18.0 H RBC 4.14 Hgb 13.0 Hct 39.0 MCV 94.2 MCH 31.4 MCHC 33.4 RDW 14.2 Plt Count 125 L MPV 10.3 Absolute Neuts (auto) 15.6 H Neutrophils % 86.5 H Lymphocytes % 4.5 L D Monocytes % 8.7 Eosinophils % 0.1 D Basophils % 0.2 Nucleated RBC % 0 PT with INR 26.40 H INR 2.22 H PTT (Actin FS) 34.3 Sodium Potassium Chloride Carbon Dioxide Anion Gap BUN Creatinine Est GFR (CKD-EPI)AfAm Est GFR (CKD-EPI)NonAf Random Glucose Calcium Total Bilirubin AST ALT Alkaline Phosphatase Creatine Kinase Troponin I Total Protein Albumin Blood Type B POSITIVE Antibody Screen Negative 04/10/20 04/11/20 20:10 01:22 WBC RBC Hgb Hct MCV MCH MCHC RDW Plt Count MPV Absolute Neuts (auto) Neutrophils % Lymphocytes % Monocytes % Eosinophils % Basophils % Nucleated RBC % PT with INR INR PTT (Actin FS) Sodium 136 134 L Potassium 4.2 5.2 H Chloride 99 102 Carbon Dioxide 25 25 Anion Gap 12 7 L BUN 39.4 H 34.4 H Creatinine 1.7 H 1.5 H Est GFR (CKD-EPI)AfAm 45.36 52.40 Est GFR (CKD-EPI)NonAf 39.14 45.21 Random Glucose 163 H 124 H Calcium 8.4 L 7.9 L Total Bilirubin 4.7 H D 4.6 H AST 110 H 118 H ALT 65 H 58 Alkaline Phosphatase 282 H 247 H Creatine Kinase 42 Troponin I < 0.02 < 0.02 Total Protein 6.8 6.0 L Albumin 3.0 L 2.7 L Blood Type Antibody Screen ASSESSMENT/PLAN: Pt is a 75 year old male with PMHx of stage IV pancreatic cancer, former smoker and EtOH abuse presenting to the ED with R arm pain, swelling and discolouration admitted for PE. #Pulmonary embolism 2/2 to pancreatic CA and noncompliance -CTA with RUL and RLL acute PE, multiple hepatic masses seen -heparin gtt started -PTT q6h checks -pt was d/c on eliquis 5mg BID on last visit for PVT, had not been taking for 1 week due to running out #SY -Cr 1.7, baseline 0.9 -LR 83 cc/hr, check BMP in AM -renal ultrasound ordered -consulted renal #Leukocytosis -monitor -unlikely infectious source PPx On heparin gtt FEN LR 83cc/hr Monitor electrolytes Regular diet Dispo Admit to tele. On heparin gtt for PE. ATTENDING PHYSICIAN STATEMENT I saw and evaluated the patient. I reviewed the resident's note and discussed the case with the resident. I agree with the resident's findings and plan as documented. SUBJECTIVE: OBJECTIVE: ASSESSMENT AND PLAN:
[2020-04-11 06:57] LABS: BASO % 0.7 % (0-2.0); EOS % 0.9 % (0-4.5); HEMATOCRIT 30.1 % (35.4-49); HEMOGLOBIN 10.2 GM/dL (11.7-16.9); LYMPH % 6.8 % (8-40); MCH 32.1 pg (25.7-33.7); MCHC 33.7 g/dl (32.0-35.9); MEAN CELL VOLUME 95.3 fl (80-96); MEAN PLT VOLUME 9.9 fl (7.5-11.1); MONO % 10.3 % (3.8-10.2); NEUT % 81.3 % (42.8-82.8); PLATELET COUNT 80 K/MM3 (134-434); RBC 3.16 M/mm3 (4.00-5.60); RDW 13.9 % (11.9-15.9); WHITE BLOOD COUNT 9.2 K/mm3 (4.0-10.0)
[2020-04-11 07:28] LABS: ALBUMIN 1.9 g/dl (3.4-5.0); BLOOD UREA NITROGEN 27.2 mg/dL (7-18); MAGNESIUM 1.8 mg/dL (1.8-2.4)
[2020-04-11 07:31] LABS: BILIRUBIN,TOTAL 3.2 mg/dL (0.2-1); CALCIUM 7.2 mg/dL (8.5-10.1); CREATININE 0.7 mg/dL (0.55-1.3); TOT PROT 4.1 g/dl (6.4-8.2)
--- NOTE | 2020-04-11 09:33 | PN ---
Physical Exam: SUBJECTIVE: Patient seen and examined in tele icu. he was recently discharged on eliquis 5 mg bid and returns to the ED on 04/10/2020 with DVT or right arm and PE on CTA imaging. he denies any chest pain or shortness of breath. tolerating room air. he noted his right arm began to swell up over a week ago. he went to see his oncologist to discuss treatment options but was sent to the ED for edema of right arm. he tells me that he ran out of the eliquis. OBJECTIVE: Patient is a 75 male with a past medical history of right inguinal herina s/p repair in , ETOH abuse (quit apx month ago, drank 1 pint vodka daily), former smoker and newly found pancreatic cancer with liver lesions. Pt was being evaluated by Dr. Longoria (oncologist) on Monday when he was noted to have right arm edema. He was sent to [facility] for further evaluation. He was found to have an acute DVT of right arm and an acute RLL PE on CTA imaging. Also noted to have SY. he is on a heparin drip. Patient recently admitted between when US RUQ showing multiple liver masses and thickened GB wall. He had an abdominal pelvis u/s 03/24/2020 which showed multiple hepatic masses suspicious for metastatic disease. ill defined mass at the head of the pancreas. On 03/27/2020 he underwent a liver biopsy to rule out mets. Abd/pelvis u/s shows strong suspicion for pancreatic cancer as well as elevated tumor markers. CT scan concerning for a portal vein thrombosis, however portal vein thrombosis not seen on ultrasound done 2019. patient refused further imaging and was sent home on Eliquis 5 mb BID. He tells me that he ran out of the Eliquis. imaging: duplex right arm: acute extensive dvt reports: pathology report:[id number], well to moderate differentiated Vital Signs Period Temp Pulse Resp BP Sys/De Paz Pulse Ox Last 24 Hr 97.9 F-98.4 F 63-89 - 121-157/67-96 99-100 GENERAL: The patient is awake, alert, and fully oriented, in no acute distress. HEAD: Normal with no signs of trauma. EYES: PERRL, extraocular movements intact, sclera anicteric, conjunctiva clear. No ptosis. ENT: Ears normal, nares patent, oropharynx clear without exudates NECK: Trachea midline, full range of motion, supple. LUNGS: Breath sounds equal, clear to auscultation bilaterally HEART: Regular rate and rhythm ABDOMEN: Soft, nontender, nondistended, normoactive bowel sounds EXTREMITIES: right arm edema with right lower arm erythema and pain, found to have a right DVT. NEUROLOGICAL: Normal speech, gait not observed. PSYCH: Normal mood, normal affect. Laboratory Results - last 24 hr 04/10/20 04/10/20 04/10/20 20:10 20:10 20:10 WBC 18.0 H RBC 4.14 Hgb 13.0 Hct 39.0 MCV 94.2 MCH 31.4 MCHC 33.4 RDW 14.2 Plt Count 125 L MPV 10.3 Absolute Neuts (auto) 15.6 H Neutrophils % 86.5 H Lymphocytes % 4.5 L D Monocytes % 8.7 Eosinophils % 0.1 D Basophils % 0.2 Nucleated RBC % 0 PT with INR 26.40 H INR 2.22 H PTT (Actin FS) 34.3 Sodium Potassium Chloride Carbon Dioxide Anion Gap BUN Creatinine Est GFR (CKD-EPI)AfAm Est GFR (CKD-EPI)NonAf Random Glucose Calcium Phosphorus Magnesium Total Bilirubin AST ALT Alkaline Phosphatase Creatine Kinase Troponin I Total Protein Albumin Blood Type B POSITIVE Antibody Screen Negative 04/10/20 04/11/20 04/11/20 20:10 01:22 06:12 WBC 9.2 RBC 3.16 L Hgb 10.2 L Hct 30.1 L D MCV 95.3 MCH 32.1 MCHC 33.7 RDW 13.9 Plt Count 80 L D MPV 9.9 Absolute Neuts (auto) 7.4 Neutrophils % 81.3 Lymphocytes % 6.8 L D Monocytes % 10.3 H Eosinophils % 0.9 D Basophils % 0.7 D Nucleated RBC % 0 PT with INR INR PTT (Actin FS) Sodium 136 134 L Potassium 4.2 5.2 H Chloride 99 102 Carbon Dioxide 25 25 Anion Gap 12 7 L BUN 39.4 H 34.4 H Creatinine 1.7 H 1.5 H Est GFR (CKD-EPI)AfAm 45.36 52.40 Est GFR (CKD-EPI)NonAf 39.14 45.21 Random Glucose 163 H 124 H Calcium 8.4 L 7.9 L Phosphorus Magnesium Total Bilirubin 4.7 H D 4.6 H AST 110 H 118 H ALT 65 H 58 Alkaline Phosphatase 282 H 247 H Creatine Kinase 42 Troponin I < 0.02 < 0.02 Total Protein 6.8 6.0 L Albumin 3.0 L 2.7 L Blood Type Antibody Screen 04/11/20 04/11/20 06:12 06:12 WBC RBC Hgb Hct MCV MCH MCHC RDW Plt Count MPV Absolute Neuts (auto) Neutrophils % Lymphocytes % Monocytes % Eosinophils % Basophils % Nucleated RBC % PT with INR INR PTT (Actin FS) 73.1 H Sodium 139 Potassium 4.0 Chloride 105 Carbon Dioxide 21 Anion Gap 13 BUN 27.2 H Creatinine 0.7 Est GFR (CKD-EPI)AfAm 107.75 Est GFR (CKD-EPI)NonAf 92.97 Random Glucose 88 Calcium 7.2 L Phosphorus 2.0 L Magnesium 1.8 Total Bilirubin 3.2 H AST 72 H ALT 40 Alkaline Phosphatase 169 H Creatine Kinase Troponin I Total Protein 4.1 L Albumin 1.9 L Blood Type Antibody Screen Active Medications Generic Name Dose Route Start Last Admin Trade Name Freq PRN Reason Stop Dose Admin Heparin Sodium (Porcine) 1,000 unit 04/10/20 20:13 Heparin - IVPUSH PRN PRN Heparin Heparin Sodium (Porcine) 5,000 unit 04/10/20 20:13 Heparin - IVPUSH PRN PRN Heparin Heparin Sodium (Porcine) 25, 500 mls @ 20 mls/hr 04/10/20 20:15 04/10/20 22:50 000 unit/ Sodium Chloride IV 1,000 unit/hr TITR AIRAM 20 mls/hr Administration Protocol 1,000 UNIT/HR Lactated Ringer's 1,000 ml in 1,000 mls @ 83 mls/hr 04/11/20 01:15 04/11/20 01:50 Lactated Ringers Solution IV 83 mls/hr ASDIR AIRAM Administration ASSESSMENT/PLAN: Problem List - Problems (1) Pancreatic cancer Assessment/Plan: diagnosed on last admission. patient followed up with Dr Longoria for treatment option on Monday, but was sent to ED for right arm DVT. has not yet started treatment. on prevoius admission, he refused chemo and RT heme/onc following liver biopsy confirms adenocarcinoma well to moderately differentiated Code(s): C25.9 - MALIGNANT NEOPLASM OF PANCREAS, UNSPECIFIED (2) Acute pulmonary embolism Code(s): I26.99 - OTHER PULMONARY EMBOLISM WITHOUT ACUTE COR PULMONALE (3) Deep vein thrombosis (DVT) of axillary vein of right upper extremity Assessment/Plan: extensive right arm dvt. on heparin drip Code(s): I82.A11 - ACUTE EMBOLISM AND THROMBOSIS OF RIGHT AXILLARY VEIN Qualifiers: Chronicity: acute Qualified Code(s): I82.A11 - Acute embolism and thrombosis of right axillary vein (4) Abdominal pain Assessment/Plan: intermittent abdominal pain, on pain regimen Code(s): R10.9 - UNSPECIFIED ABDOMINAL PAIN (5) DVT prophylaxis Code(s): Z29.9 - ENCOUNTER FOR PROPHYLACTIC MEASURES, UNSPECIFIED (6) Former consumption of alcohol Assessment/Plan: patient quit early February 2020, no withdrawal symptoms currently. Code(s): Z87.898 - PERSONAL HISTORY OF OTHER SPECIFIED CONDITIONS (7) Portal vein thrombosis Assessment/Plan: CT scan concerning for a portal vein thrombosis, however portal vein thrombosis not seen on ultrasound done 03/30/2020. patient refused further imaging and was sent home on Eliquis 5 mb BID. He tells me that he ran out of the Eliquis. Code(s): I81 - PORTAL VEIN THROMBOSIS (8) Thrombocytopenia Assessment/Plan: monitor cbc with daily labs and while on heparin drip Code(s): D69.6 - THROMBOCYTOPENIA, UNSPECIFIED (9) DVT prophylaxis Assessment/Plan: on heparin drip, therapeutic aptt Code(s): Z29.9 - ENCOUNTER FOR PROPHYLACTIC MEASURES, UNSPECIFIED (10) Pulmonary embolism Assessment/Plan: PE seen on CTA imaging. started on heparin drip. patient was sent home with eliquis for portal vein thrombosis but states he ran out of eliquis. Code(s): I26.99 - OTHER PULMONARY EMBOLISM WITHOUT ACUTE COR PULMONALE Visit type - Emergency Visit Emergency Visit: Yes ED Registration Date: 04/10/20 Care time: The patient presented to the Emergency Department on the above date and was hospitalized for further evaluation of their emergent condition. - New Patient This patient is new to me today: Yes Date on this admission: 04/12/20 - Critical Care Critical Care patient: No - Discharge Referral Referred to [facility] No - Medication Review Med list reviewed for High Risk Meds patients 65 and older: Yes
[2020-04-11] MEDS ORDERED: oxyCODONE HCL 5 MG TABLET PO PRN (09:58)
[2020-04-11] MEDS ORDERED: FENTANYL PATCH WASTE TD PRN (09:58)
[2020-04-11] MEDS ORDERED: fentaNYL 12mcg/hr PATCH.TD72 TD SCH (10:00)
--- NOTE | 2020-04-11 12:25 | CON.PULM ---
Consult Consult Specialty:: PULMONARY Referred by:: TOM Han Reason for Consultation:: pulmonary embolism - History of Present Illness Chief Complaint: sent by oncologist History of Present Illness: 75yo male with recently diagnosed stage IV pancreatic cancer who was admitted after found to have a RLE DVT on outpt ultrasound. Reports increased swelling in his right arm. Denies shortness of breath or chest pain. Denies history of clots although was found to have portal vein thrombosis last admission. Was discharged on eliquis but ran out of his medications. No leg swelling or pain. He is a nonsmoker. - History Source History Provided By: Patient, Significant Other Limitations to Obtaining History: No Limitations - Past Medical History Additional Medical History: Denies - Alcohol/Substance Use Hx Alcohol Use: Yes (1 pint vodka per day. 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 History of Recent Travel: No Home Medications - Allergies Allergies/Adverse Reactions: Allergies Allergy/AdvReac Type Severity Reaction Status Date / Time No Known Allergies Allergy Verified 04/10/20 21:03 - Home Medications Home Medications: Ambulatory Orders FENTANYL 12mcg PATCH [DURAGESIC 12mcg PATCH -] 1 patch TD Q72H #10 patch.td72 MDD 1 03/30/20 Folic Acid - 1 mg PO DAILY #30 tablet 03/30/20 oxyCODONE HCL [Roxicodone -] 5 mg PO Q8H PRN 7 Days #21 tablet MDD 3 03/30/20 Apixaban [Eliquis -] 5 mg PO BID #30 tablet 03/31/20 Family Medical History Family Hx Cancer: Father (pancreatitis vs pancreatic cancer) Review of Systems - Review of Systems Constitutional: denies: Chills, Fever Eyes: denies: Recent Change in Vision HENT: denies: Nasal Congestion, Throat Pain Neck: denies: Tenderness Cardiovascular: reports: Edema (RUE). denies: Chest Pain, Shortness of Breath Respiratory: denies: Cough, SOB, Wheezing Gastrointestinal: reports: Abdominal Pain. denies: Nausea, Vomiting Genitourinary: denies: Dysuria, Hematuria Neurological: denies: Dizziness, Headache Endocrine: denies: Unexplained Weight Loss Physical Exam Vital Sings: Vital Signs Temperature 97.9 F 04/11/20 08:03 Pulse Rate 63 04/11/20 08:03 Respiratory Rate 15 04/11/20 08:03 Blood Pressure 157/67 04/11/20 08:03 O2 Sat by Pulse Oximetry (%) 100 04/11/20 08:03 Constitutional: Yes: Other (jaundiced) Eyes: Yes: Sclera Icterus HENT: Yes: Atraumatic, Normocephalic Neck: Yes: Supple, Trachea Midline Cardiovascular: Yes: Regular Rate and Rhythm Respiratory: Yes: Diminished (at bases) Gastrointestinal: Yes: Soft. No: Tenderness Edema: No Neurological: Yes: Alert, Oriented Labs: CBC, BMP 04/11/20 06:12 04/11/20 06:12 Imaging - Results Cat Scan: Report Reviewed, Image Reviewed (small RUL, RLL filling defects) Assessment/Plan Acute Pulmonary Emboli Metastatic Pancreatic Cancer RUE DVT Acute Kidney Injury improved - continue anticoagulation - may benefit from LMWH - echocardiogram although PEs small - LE dopplers - O2 to keep SpO2 >90% Thank you for this consult Carlos Buitrago MD
[2020-04-11] MEDS: oxyCODONE HCL 5 MG TABLET PO PRN ×4 (14:08→23:45)
[2020-04-11] MEDS ORDERED: oxyCODONE HCL 5 MG TABLET PO ONE (17:20)
[2020-04-11 19:54] VITALS: BMI 24.0
--- NOTE | 2020-04-11 21:45 | CON.HO ---
Consult Consult Specialty:: Heme-onc Referred by:: Dr. Abraham Reason for Consultation:: pancreatic cancer - History of Present Illness Chief Complaint: RUE DVT History of Present Illness: 75M w/hx heavy etoh use (last 1 month ago) and recently (03/27/20) diagnosed stage IV pancreatic cancer, on Eliquis 5 mg BID, for likely PVT dx at same time, admitted with RUE DVT (extensive clot involving the length of right subclavian, axillary, brachial, radial and ulnar veins). CT chest showed acute PE in right upper and lower lobes. Has had worsening RUE swelling and pain for a few days. Admits that he missed more than a week of apixaban. Unclear whether he took it as an outpatient at all. Denies SOB, chest pain, bleeding, numbness in fingers. After his discharge on 03/31/20, pt reports that he saw Dr. Tony Longoria, rad onc?, the day prior to admission but has not followed up with medical oncology at [facility] as he was not interested in chemotherapy according to prior notes. No treatment yet. Started on UFH for RUE DVT and PE yesterday. - Past Medical History Additional Medical History: Denies - Alcohol/Substance Use Hx Alcohol Use: Yes (1 pint vodka per day. 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 History of Recent Travel: No Home Medications - Allergies Allergies/Adverse Reactions: Allergies Allergy/AdvReac Type Severity Reaction Status Date / Time No Known Allergies Allergy Verified 04/10/20 21:03 - Home Medications Home Medications: Ambulatory Orders FENTANYL 12mcg PATCH [DURAGESIC 12mcg PATCH -] 1 patch TD Q72H #10 patch.td72 MDD 1 03/30/20 Folic Acid - 1 mg PO DAILY #30 tablet 03/30/20 oxyCODONE HCL [Roxicodone -] 5 mg PO Q8H PRN 7 Days #21 tablet MDD 3 03/30/20 Apixaban [Eliquis -] 5 mg PO BID #30 tablet 03/31/20 Family Medical History Family Hx Cancer: Father (pancreatitis vs pancreatic cancer) Review of Systems - Review of Systems Eyes: reports: No Symptoms Cardiovascular: denies: Chest Pain, Shortness of Breath Respiratory: denies: Hemoptysis, SOB Gastrointestinal: reports: Abdominal Pain (x 2 momnths) Neurological: denies: Numbness, Parasthesia Hematology/Lymphatic: reports: No Symptoms Physical Exam Vital Signs: Vital Signs Temperature 98.4 F 04/11/20 16:00 Pulse Rate 70 04/11/20 16:00 Respiratory Rate 22 H 04/11/20 16:00 Blood Pressure 126/70 04/11/20 16:00 O2 Sat by Pulse Oximetry (%) 100 04/11/20 16:00 Constitutional: Yes: Calm, Mild Distress (due to abdominal pain) Eyes: Yes: Sclera Icterus Respiratory: Yes: Regular Gastrointestinal: Yes: Tenderness (throughout). No: Distention Edema: RUE: 2+ (RU edema, tender to plapation, pulses+) Labs: CBC, BMP 04/11/20 06:12 04/11/20 06:12 Assessment/Plan 75M w/ recently diagnosed stage IV pancreatic cancer, not yet on treatment, c/b likely PVT , admitted with RUE DVT (extensive clot involving the length of right subclavian, axillary, brachial, radial and ulnar veins) and acute PE in right upper and lower lobes. Appears that he was not taking apixaban that he was prescribed for PVT. Plt count 120s -->90, INR 2.2, PTT 34 on presentation. Peripheral smear without plt clumps, 0-2 schistocytes per HPF. Some concern for BURAK given exposure to heparin on prior admission and plt drop after exposure yesterday. Please repeat CBC. If plts still downtrending, would switch to bivalirudin gtt and send PF4 ab and PAUL. Also ordered fibrinogen, FVIII, FX. Coagulopathy 2/2 liver dysfunction vs vit K deficiency vs. (less likely DIC).
[2020-04-11] MEDS ORDERED: HYDROmorphone HCl 2 MG/ML VIAL IVPUSH ONE (23:02)
[2020-04-11 23:40] LABS: BASO % 1.1 % (0-2.0); EOS % 0.8 % (0-4.5); HEMATOCRIT 34.9 % (35.4-49); HEMOGLOBIN 11.9 GM/dL (11.7-16.9); MCH 32.4 pg (25.7-33.7); MCHC 34.1 g/dl (32.0-35.9); MEAN PLT VOLUME 9.8 fl (7.5-11.1); MONO % 10.4 % (3.8-10.2); NEUT % 80.7 % (42.8-82.8); PLATELET COUNT 95 K/MM3 (134-434); RBC 3.67 M/mm3 (4.00-5.60); RDW 14.2 % (11.9-15.9); WHITE BLOOD COUNT 10.4 K/mm3 (4.0-10.0)
[2020-04-11 23:47] LABS: INR 2.34 (0.83-1.09); PROTHROMBIN TIME (PATIENT) 27.9 SEC (9.7-13.0)
[2020-04-11 23:49] LABS: ACTIVATED PTT 51.8 SECONDS (25.2-36.5)
[2020-04-12] MEDS: HEPARIN - 25,000 UNIT in SODIUM CHLORIDE 495 ML IV SCH (04:00)
[2020-04-12] MEDS: LACTATED RINGERS SOLUTION 1,000 ML/1,000 ML INFUS.BAG IV SCH (06:53)
[2020-04-12 07:13] LABS: BASO % 0.4 % (0-2.0); HEMATOCRIT 21.2 % (35.4-49); HEMOGLOBIN 7.1 GM/dL (11.7-16.9); LYMPH % 7.3 % (8-40); MCH 32.1 pg (25.7-33.7); MCHC 33.5 g/dl (32.0-35.9); MEAN PLT VOLUME 10.1 fl (7.5-11.1); MONO % 13.1 % (3.8-10.2); NEUT % 77.2 % (42.8-82.8); PLATELET COUNT 55 K/MM3 (134-434); RBC 2.21 M/mm3 (4.00-5.60); RDW 14.3 % (11.9-15.9); WHITE BLOOD COUNT 5.5 K/mm3 (4.0-10.0)
[2020-04-12 07:22] LABS: ALBUMIN 1.8 g/dl (3.4-5.0); BLOOD UREA NITROGEN 18.3 mg/dL (7-18); CALCIUM 7.2 mg/dL (8.5-10.1); CREATININE 0.7 mg/dL (0.55-1.3); MAGNESIUM 2.1 mg/dL (1.8-2.4); POTASSIUM 3.8 mmol/L (3.5-5.1)
[2020-04-12] MEDS ORDERED: PT OWN MED DRAWER 7, Y5N ONE (09:10)
--- NOTE | 2020-04-12 09:14 | PN ---
Physical Exam: SUBJECTIVE: Patient seen and examined. he denies any pain or discomfort. tells me that food is getting stuck in his throat when he eats. OBJECTIVE: Patient is a 75 male with a past medical history of right inguinal herina s/p repair in , ETOH abuse (quit apx month ago, drank 1 pint vodka daily), former smoker and newly found pancreatic cancer with liver lesions on recent admission at [facility]. Pt was being evaluated by Dr. Longoria (oncologist) on Monday when he was noted to have right arm edema. He was sent to [facility] for further evaluation. He was found to have an acute DVT of right arm and an acute RLL PE on CTA imaging. Also noted to have SY. he was on a heparin drip. His hmg/hct trended down today and platelets continued to drop. heparin drip stopped and placed on fondaparinux. repeat hmg/hct downtrending. discussed with GI and a ct abd/pelvis recommended to rule out retroperitoneal bleed recommended. a ct of right arm ordered to rule out hematoma. he is having brown soft stools and UA sent. stool for occult blood pending. ----- patient labs hmg 13->7.1 platelets 125->55 heparin drip d/c per heme if platelets continue to downtrend, stop heparin gtt and initiate bivalirudin gtt. spoke to pharmacy this a.m., hospital does not cover bivalirudin gtt. started on fondaparinux 7.5mg SQ injections. repeat labs at 12 type and screen, HIT panel sent stool for occult blood and UA sent no signs of bleeding Vital Signs Period Temp Pulse Resp BP Sys/De Paz Pulse Ox Last 24 Hr 98.0 F-98.4 F 57-83 15-23 111-165/67-90 98-100 GENERAL: The patient is awake, alert, and fully oriented, in no acute distress. HEAD: Normal with no signs of trauma. EYES: PERRL, extraocular movements intact, sclera anicteric, conjunctiva clear. No ptosis. ENT: Ears normal, nares patent, oropharynx clear without exudates NECK: Trachea midline, full range of motion, supple. LUNGS: Breath sounds equal, clear to auscultation bilaterally HEART: Regular rate and rhythm ABDOMEN: Soft, nontender, nondistended, normoactive bowel sounds EXTREMITIES: right arm edema with right lower arm erythema and pain, found to have a right DVT. NEUROLOGICAL: Normal speech, gait not observed. PSYCH: Normal mood, normal affect. Laboratory Results - last 24 hr 04/11/20 04/11/20 04/11/20 23:00 23:00 23:00 WBC 10.4 H Corrected WBC (auto) RBC 3.67 L Hgb 11.9 Hct 34.9 L D MCV 95.0 MCH 32.4 MCHC 34.1 RDW 14.2 Plt Count 95 L MPV 9.8 Absolute Neuts (auto) 8.4 H Neutrophils % 80.7 Lymphocytes % 7.0 L Monocytes % 10.4 H Eosinophils % 0.8 Basophils % 1.1 Nucleated RBC % 0 Manual Slide Review Platelet Comment PT with INR 27.90 H INR 2.34 H PTT (Actin FS) 51.8 H Fibrinogen 294.0 Sodium Potassium Chloride Carbon Dioxide Anion Gap BUN Creatinine Est GFR (CKD-EPI)AfAm Est GFR (CKD-EPI)NonAf Random Glucose Calcium Magnesium Total Bilirubin AST ALT Alkaline Phosphatase Total Protein Albumin 04/12/20 04/12/20 04/12/20 06:06 06:06 06:06 WBC Cancelled 5.5 Corrected WBC (auto) Cancelled RBC Cancelled 2.21 L Hgb Cancelled 7.1 L Hct Cancelled 21.2 L D MCV Cancelled 96.0 MCH Cancelled 32.1 MCHC Cancelled 33.5 RDW Cancelled 14.3 Plt Count Cancelled 55 L D MPV Cancelled 10.1 Absolute Neuts (auto) 4.3 Neutrophils % 77.2 Lymphocytes % 7.3 L Monocytes % 13.1 H Eosinophils % 2.0 D Basophils % 0.4 Nucleated RBC % 0 Manual Slide Review Cancelled Platelet Comment Cancelled PT with INR INR PTT (Actin FS) 78.2 H Fibrinogen Sodium Potassium Chloride Carbon Dioxide Anion Gap BUN Creatinine Est GFR (CKD-EPI)AfAm Est GFR (CKD-EPI)NonAf Random Glucose Calcium Magnesium Total Bilirubin AST ALT Alkaline Phosphatase Total Protein Albumin 04/12/20 06:06 WBC Corrected WBC (auto) RBC Hgb Hct MCV MCH MCHC RDW Plt Count MPV Absolute Neuts (auto) Neutrophils % Lymphocytes % Monocytes % Eosinophils % Basophils % Nucleated RBC % Manual Slide Review Platelet Comment PT with INR INR PTT (Actin FS) Fibrinogen Sodium 137 Potassium 3.8 Chloride 102 Carbon Dioxide 24 Anion Gap 11 BUN 18.3 H Creatinine 0.7 Est GFR (CKD-EPI)AfAm 107.75 Est GFR (CKD-EPI)NonAf 92.97 Random Glucose 113 H Calcium 7.2 L Magnesium 2.1 Total Bilirubin 3.0 H AST 84 H ALT 44 Alkaline Phosphatase 233 H Total Protein 4.0 L Albumin 1.8 L Active Medications Generic Name Dose Route Start Last Admin Trade Name Freq PRN Reason Stop Dose Admin Fentanyl 1 patch 04/11/20 10:00 04/11/20 10:15 Duragesic 12mcg Patch - TD 04/18/20 09:58 1 patch Q72H AIRAM Administration Fondaparinux 7.5 mg 04/12/20 10:00 Fondaparinux Sodium SQ DAILY AIRAM Lactated Ringer's 1,000 ml in 1,000 mls @ 83 mls/hr 04/11/20 01:15 04/12/20 06:53 Lactated Ringers Solution IV 83 mls/hr ASDIR AIRAM Administration Miscellaneous 1 each 04/11/20 09:58 Duragesic Patch Waste TD PRN PRN PAIN Oxycodone HCl 10 mg 04/11/20 23:11 04/11/20 23:45 Roxicodone - PO 10 mg Q3H PRN Administration PAIN LEVEL 7 - 10 ASSESSMENT/PLAN: Problem List - Problems (1) Acute blood loss anemia Assessment/Plan: hmg/hct trended down today and platelets continued to drop. heparin drip stopped and placed on fondaparinux. repeat hmg/hct downtrending. discussed with GI and a ct abd/pelvis recommended to rule out retroperitoneal bleed. a ct of right arm ordered to rule out hematoma. he is having brown soft stools and UA sent. stool for occult blood pending. for 2 units of prbc today Code(s): D62 - ACUTE POSTHEMORRHAGIC ANEMIA (2) Acute pulmonary embolism Assessment/Plan: Acute RLL PE seen on CTA was on heparin drip but transitioned to Fondaparinux after concern for HIT with heparin drip. hmg/hct continues to drop and now with severe anemia requiring 2 units of prbc will hold fondaparinux heme/onc following Code(s): I26.99 - OTHER PULMONARY EMBOLISM WITHOUT ACUTE COR PULMONALE (3) Deep vein thrombosis (DVT) of axillary vein of right upper extremity Assessment/Plan: extensive right arm dvt. RLL PE lower ext venous doppler ordered to rule out leg DVT Code(s): I82.A11 - ACUTE EMBOLISM AND THROMBOSIS OF RIGHT AXILLARY VEIN Qualifiers: Chronicity: acute Qualified Code(s): I82.A11 - Acute embolism and thrombosis of right axillary vein (4) Pancreatic cancer Assessment/Plan: pancreatic cancer with liver mets. patient followed up with Dr Longoria for treatment option on Monday, but was sent to ED for right arm DVT. has not yet started treatment. on prevoius admission, he refused chemo and RT heme/onc following liver biopsy confirms adenocarcinoma well to moderately differentiated Code(s): C25.9 - MALIGNANT NEOPLASM OF PANCREAS, UNSPECIFIED (5) Abdominal pain Assessment/Plan: intermittent abdominal pain, on pain regimen Code(s): R10.9 - UNSPECIFIED ABDOMINAL PAIN (6) DVT prophylaxis Assessment/Plan: on fondaparinux but holding since patient now with acute blood loss anemia Code(s): Z29.9 - ENCOUNTER FOR PROPHYLACTIC MEASURES, UNSPECIFIED (7) Former consumption of alcohol Assessment/Plan: patient quit early February 2020, no withdrawal symptoms currently. Code(s): Z87.898 - PERSONAL HISTORY OF OTHER SPECIFIED CONDITIONS (8) Portal vein thrombosis Assessment/Plan: CT scan concerning for a portal vein thrombosis, however portal vein thrombosis not seen on ultrasound done 03/30/2020. patient refused further imaging and was sent home on Eliquis 5 mb BID. He tells me that he ran out of the Eliquis and presents back to [facility] acute right arm dvt Code(s): I81 - PORTAL VEIN THROMBOSIS (9) Thrombocytopenia Assessment/Plan: monitor cbc with daily labs Code(s): D69.6 - THROMBOCYTOPENIA, UNSPECIFIED (10) DVT prophylaxis Assessment/Plan: on heparin drip, therapeutic aptt Code(s): Z29.9 - ENCOUNTER FOR PROPHYLACTIC MEASURES, UNSPECIFIED Visit type - Emergency Visit Emergency Visit: Yes ED Registration Date: 04/10/20 Care time: The patient presented to the Emergency Department on the above date and was hospitalized for further evaluation of their emergent condition. - New Patient This patient is new to me today: No - Critical Care Critical Care patient: No - Discharge Referral Referred to [facility] Med P.C[facility] No - Medication Review Med list reviewed for High Risk Meds patients 65 and older: Yes
[2020-04-12] MEDS: oxyCODONE HCL 5 MG TABLET PO PRN ×3 (09:19→21:41)
[2020-04-12] MEDS: FONDAPARINUX SODIUM 7.5 MG/0.6 ML SYRINGE SQ SCH (09:26)
[2020-04-12 10:19] LABS: EPI CELLS 2 /uL (0-25.1); HYALINE CASTS 1 /uL (0-3.1); URINE APPEARANCE CLEAR; URINE BILIRUBIN 1+ (NEGATIVE); URINE COLOR DK YELLOW; URINE GLUCOSE (UA) NEGATIVE (NEGATIVE); URINE KETONE NEGATIVE (NEGATIVE); URINE LEUK ESTERASE NEGATIVE (NEGATIVE); URINE NITRITE POSITIVE (NEGATIVE); URINE PROTEIN TRACE (NEGATIVE); URINE RBC 12 /uL (0-23.9); URINE WBC 2 /uL (0-25.8)
[2020-04-12 11:47] LABS: URINE BACTERIA MODERATE /uL (0-1359)
[2020-04-12 13:05] LABS: BASO % 0.4 % (0-2.0); EOS % 1.3 % (0-4.5); HEMATOCRIT 18.5 % (35.4-49); LYMPH % 5.5 % (8-40); MCH 32.1 pg (25.7-33.7); MCHC 32.7 g/dl (32.0-35.9); MEAN CELL VOLUME 98.1 fl (80-96); MONO % 11.6 % (3.8-10.2); NEUT % 81.2 % (42.8-82.8); PLATELET COUNT 46 K/MM3 (134-434); RBC 1.88 M/mm3 (4.00-5.60); RDW 14.6 % (11.9-15.9)
--- NOTE | 2020-04-12 16:18 | CON.GI ---
Consult Consult Specialty:: Gastroenterology ( covering Dr Stearns) Referred by:: Carolyn Ruiz NP Reason for Consultation:: falling Hb - History of Present Illness Chief Complaint: swollen right arm History of Present Illness: 75M referred to the ER by his oncologist Dr [facility] for RUE thrombosis. CT reveal RUL and RLL pulmonary emboli. He was diagnoses with metastatic pancreatic cancer after a liver biopsy here on 03/31/20. He apparently refused chemotherapy and sought therapy with Dr. Longoria. He also stopped taking the Eliquis that was advised for portal vein thrombosis. He denies any h/o GI bleeding and has never had an EGD or a colonoscopy. - History Source History Provided By: Patient, Medical Record Limitations to Obtaining History: No Limitations - Past Medical History Pulmonary: Yes: Pulmonary Embolus Gastrointestinal: Yes: Other (Pancreatic carcinoma with liver metastases) Hepatobiliary: Yes: Other (Pancreatic neoplasm with liver metastases) Renal/: Yes: BPH Psych: Yes: Addictions (alcohol, drank a pint of vodka daily until 03/29) Additional Medical History: Denies - Past Surgical History Past Surgical History: Yes: Hernia Repair (LIH) - Alcohol/Substance Use Hx Alcohol Use: Yes (1 pint vodka per day. 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 [employer] Place of : [facility] History of Recent Travel: No Home Medications - Allergies Allergies/Adverse Reactions: Allergies Allergy/AdvReac Type Severity Reaction Status Date / Time No Known Allergies Allergy Verified 04/10/20 21:03 - Home Medications Home Medications: Ambulatory Orders FENTANYL 12mcg PATCH [DURAGESIC 12mcg PATCH -] 1 patch TD Q72H #10 patch.td72 MDD 1 03/30/20 Folic Acid - 1 mg PO DAILY #30 tablet 03/30/20 oxyCODONE HCL [Roxicodone -] 5 mg PO Q8H PRN 7 Days #21 tablet MDD 3 03/30/20 Apixaban [Eliquis -] 5 mg PO BID #30 tablet 03/31/20 Family Medical History Family Hx Cancer: Father (pancreatitis vs pancreatic cancer) Other Family History: Father 55 of pancreatitis, ? alcohol related. Mother lived into her 90s Review of Systems - Review of Systems Constitutional: reports: Loss of Appetite, Unintentional Wgt. Loss, Weakness Eyes: reports: No Symptoms HENT: reports: No Symptoms Neck: reports: No Symptoms Cardiovascular: reports: No Symptoms Respiratory: reports: No Symptoms Gastrointestinal: reports: Abdominal Pain Physical Exam-GI Vital Signs: Vital Signs Temperature 98.2 F 04/12/20 12:40 Pulse Rate 71 04/12/20 13:55 Respiratory Rate 20 04/12/20 13:55 Blood Pressure 136/86 04/12/20 13:55 O2 Sat by Pulse Oximetry (%) 98 04/12/20 13:55 CBC,CMP WBC 4.0 K/mm3 (4.0-10.0) 04/12/20 12:40 Corrected WBC (auto) Cancelled 04/12/20 06:06 RBC 1.88 M/mm3 (4.00-5.60) L 04/12/20 12:40 Hgb 6.0 GM/dL (11.7-16.9) L* 04/12/20 12:40 Hct 18.5 % (35.4-49) L 04/12/20 12:40 MCV 98.1 fl (80-96) H 04/12/20 12:40 MCH 32.1 pg (25.7-33.7) 04/12/20 12:40 MCHC 32.7 g/dl (32.0-35.9) 04/12/20 12:40 RDW 14.6 % (11.9-15.9) 04/12/20 12:40 Plt Count 46 K/MM3 (134-434) L 04/12/20 12:40 MPV 10.0 fl (7.5-11.1) 04/12/20 12:40 Absolute Neuts (auto) 3.3 K/mm3 (1.5-8.0) 04/12/20 12:40 Neutrophils % 81.2 % (42.8-82.8) 04/12/20 12:40 Lymphocytes % 5.5 % (8-40) L D 04/12/20 12:40 Monocytes % 11.6 % (3.8-10.2) H 04/12/20 12:40 Eosinophils % 1.3 % (0-4.5) 04/12/20 12:40 Basophils % 0.4 % (0-2.0) 04/12/20 12:40 Nucleated RBC % 0 % (0-0) 04/12/20 12:40 Manual Slide Review Cancelled 04/12/20 06:06 Platelet Comment Cancelled 04/12/20 06:06 Sodium 137 mmol/L (136-145) 04/12/20 06:06 Potassium 3.8 mmol/L (3.5-5.1) 04/12/20 06:06 Chloride 102 mmol/L (98-107) 04/12/20 06:06 Carbon Dioxide 24 mmol/L (21-32) 04/12/20 06:06 Anion Gap 11 MMOL/L (8-16) 04/12/20 06:06 BUN 18.3 mg/dL (7-18) H 04/12/20 06:06 Creatinine 0.7 mg/dL (0.55-1.3) 04/12/20 06:06 Est GFR (CKD-EPI)AfAm 107.75 04/12/20 06:06 Est GFR (CKD-EPI)NonAf 92.97 04/12/20 06:06 Random Glucose 113 mg/dL (74-106) H 04/12/20 06:06 Calcium 7.2 mg/dL (8.5-10.1) L 04/12/20 06:06 Phosphorus 2.0 mg/dL (2.5-4.9) L 04/11/20 06:12 Magnesium 2.1 mg/dL (1.8-2.4) 04/12/20 06:06 Iron 32 ug/dL (50-175) L 04/12/20 06:06 TIBC 81 ug/dL (250-450) L 04/12/20 06:06 Iron Saturation 39 % (17.5-39) 04/12/20 06:06 Unsaturated IBC 49 ug/dL (200-275) L 04/12/20 06:06 Ferritin 5061.4 ng/ml (8-388) H 04/12/20 15:19 Total Bilirubin 3.0 mg/dL (0.2-1) H 04/12/20 06:06 AST 84 U/L (15-37) H 04/12/20 06:06 ALT 44 U/L (13-61) 04/12/20 06:06 Alkaline Phosphatase 233 U/L (45-117) H 04/12/20 06:06 Creatine Kinase 42 U/L (26-308) 04/10/20 20:10 Troponin I < 0.02 ng/ml (0.00-0.05) 04/11/20 01:22 Total Protein 4.0 g/dl (6.4-8.2) L 04/12/20 06:06 Albumin 1.8 g/dl (3.4-5.0) L 04/12/20 06:06 Current Medications Generic Name Dose Route Start Last Admin Trade Name Freq PRN Reason Stop Dose Admin Fentanyl 1 patch 04/11/20 10:00 04/11/20 10:15 Duragesic 12mcg Patch - TD 04/18/20 09:58 1 patch Q72H AIRAM Administration Fondaparinux 7.5 mg 04/12/20 10:00 04/12/20 09:26 Fondaparinux Sodium SQ 7.5 mg DAILY AIRAM Administration Lactated Ringer's 1,000 ml in 1,000 mls @ 83 mls/hr 04/11/20 01:15 04/12/20 06:53 Lactated Ringers Solution IV 83 mls/hr ASDIR AIRAM Administration Miscellaneous 1 each 04/11/20 09:58 Duragesic Patch Waste TD PRN PRN PAIN Oxycodone HCl 10 mg 04/11/20 23:11 04/12/20 12:43 Roxicodone - PO 10 mg Q3H PRN Administration PAIN LEVEL 7 - 10 Constitutional: Yes: Anxious Eyes: Yes: Sclera Icterus HENT: Yes: Atraumatic Neck: Yes: Supple Cardiovascular: Yes: Regular Rate and Rhythm Respiratory: Yes: CTA Bilaterally Gastrointestinal Inspection: Yes: Scars (LIH incision with mesh) ...Auscultate: Yes: Normoactive Bowel Sounds ...Palpate: Yes: Soft, Other (nontender) ...Rectal Exam: Yes: Guaiac Trace (3+ prostate, brown trace guaiac positive stool) Extremities: Yes: Other (swollen RUE) Neurological: Yes: Alert, Oriented Labs: CBC, BMP 04/12/20 12:40 04/12/20 06:06 INR, PTT INR 2.34 (0.83-1.09) H 04/11/20 23:00 Fibrinogen 294.0 mg/dL (238-498) 04/11/20 23:00 Imaging - Results Cat Scan: Image Reviewed (no retroperitneal hematomas, perihepatic and pelvic ascites, liver metastases) Problem List - Problems (1) Acute blood loss anemia Code(s): D62 - ACUTE POSTHEMORRHAGIC ANEMIA (2) Deep vein thrombosis (DVT) of brachial vein of right upper extremity Code(s): I82.621 - ACUTE EMBOLISM AND THROMBOSIS OF DEEP VEINS OF R UP EXTREM Qualifiers: Chronicity: acute Qualified Code(s): I82.621 - Acute embolism and thrombosis of deep veins of right upper extremity (3) Pancreatic cancer Code(s): C25.9 - MALIGNANT NEOPLASM OF PANCREAS, UNSPECIFIED (4) Pulmonary embolism Code(s): I26.99 - OTHER PULMONARY EMBOLISM WITHOUT ACUTE COR PULMONALE (5) Former consumption of alcohol Code(s): Z87.898 - PERSONAL HISTORY OF OTHER SPECIFIED CONDITIONS (6) Liver metastases Code(s): C78.7 - SECONDARY MALIG NEOPLASM OF LIVER AND INTRAHEPATIC BILE DUCT Assessment/Plan Impression: - No evidence of brisk GI bleeding or retroperitoneal hemorrhage to account for profound drop in Hb associated with drop in WBC and platelets as well. A repeat CBC is pending as a dilutional blood draw site factor is suspected. Does not have any clinical evidence for hemorrhage - Stage 4 pancreatic cancer with liver metastases account for jaundice and liver abnormalities. The alkaline phosphatase and bilirubin fluctuations do not sug gest bile duct obstruction as yet but will likely need to have a metallic CBD stent soon. - Recovering alcoholic since diagnosis made in 03/29 Plan: -- Await repeat CBC -- Need to exclude HIT -- Refer to tertiary care center where a metallic CBD stent can be placed when anticoagulation can be interrupted to allow for a sphincterotomy -- PPI for stress gastritis prophylaxis Dr Stearns will assume GI care tomorrow
[2020-04-12 17:18] LABS: BASO % 0.4 % (0-2.0); EOS % 0.9 % (0-4.5); HEMATOCRIT 32.4 % (35.4-49); HEMOGLOBIN 11.1 GM/dL (11.7-16.9); LYMPH % 4.9 % (8-40); MCH 32.7 pg (25.7-33.7); MCHC 34.1 g/dl (32.0-35.9); MEAN CELL VOLUME 95.7 fl (80-96); MEAN PLT VOLUME 11.1 fl (7.5-11.1); MONO % 10.3 % (3.8-10.2); NEUT % 83.5 % (42.8-82.8); PLATELET COUNT 98 K/MM3 (134-434); RBC 3.39 M/mm3 (4.00-5.60); RDW 14.3 % (11.9-15.9); WHITE BLOOD COUNT 9.2 K/mm3 (4.0-10.0)
--- NOTE | 2020-04-12 20:33 | PN.HO ---
Progress Note, Physician History of Present Illness: Hgb found to be 7.1 then 6 today. Appears to be dilutional as phlebotomy was done with IVF running in same arm both times. Repeat with Hgb 11.1. No bleeding including on CTAP. Plt count 90s on repeat. - Current Medication List Current Medications: Active Medications Fentanyl (Duragesic 12mcg Patch -) 1 patch TD Q72H [facility] Stop: 04/18/20 09:58 Last Admin: 04/11/20 10:15 Dose: 1 patch Documented by: Fondaparinux (Fondaparinux Sodium) 7.5 mg SQ DAILY [facility] Last Admin: 04/12/20 09:26 Dose: 7.5 mg Documented by: Lactated Ringer's (Lactated Ringers Solution) 1,000 ml in 1,000 mls @ 83 mls/hr IV ASDIR [facility] Last Admin: 04/12/20 06:53 Dose: 83 mls/hr Documented by: Miscellaneous (Duragesic Patch Waste) 1 each TD PRN PRN PRN Reason: PAIN Oxycodone HCl (Roxicodone -) 10 mg PO Q3H PRN PRN Reason: PAIN LEVEL 7 - 10 Last Admin: 04/12/20 12:43 Dose: 10 mg Documented by: Pantoprazole Sodium (Protonix -) 40 mg PO DAILY [facility] - Objective Vital Signs: Vital Signs Temperature 98.6 F 04/12/20 17:00 Pulse Rate 73 04/12/20 17:00 Respiratory Rate 16 04/12/20 17:00 Blood Pressure 133/77 04/12/20 17:00 O2 Sat by Pulse Oximetry (%) 98 04/12/20 17:00 Constitutional: Yes: No Distress, Calm Eyes: Yes: Conjunctiva Clear Extremities: Yes: Other (R arm with swelling and tenderness, unchanged) Labs: CBC, BMP 04/12/20 15:00 04/12/20 06:06 INR, PTT INR 2.34 (0.83-1.09) H 04/11/20 23:00 Fibrinogen 294.0 mg/dL (238-498) 04/11/20 23:00 Assessment/Plan 75M w/ recently diagnosed stage IV pancreatic cancer, not yet on treatment, c/b likely PVT , admitted with RUE DVT (extensive clot involving the length of right subclavian, axillary, brachial, radial and ulnar veins) and acute PE in right upper and lower lobes. Appears that he was not taking apixaban that he was prescribed for PVT. Plt count 120s -->90n-->98 INR 2.2, PTT 34 on presentation. Fibrinogen normal. Peripheral smear without plt clumps, 0-2 schistocytes per HPF. - Would resume AC as Hgb actually stable on repeat with no e/o bleeding. Can use apixaban 10 mg BID for 7 days, then 5 mg BID. - With normal fibrinogen, prolonged PT is likeley 2/2 vit K deficiency. Would give 5 mg vit K PO.
--- NOTE | 2020-04-12 21:34 | EKG ---
Test Reason : Blood Pressure : / mmHG Vent. Rate : 088 BPM Atrial Rate : 088 BPM P-R Int : 136 ms QRS Dur : 070 ms QT Int : 380 ms P-R-T Axes : 059 -05 056 degrees QTc Int : 459 ms NORMAL SINUS RHYTHM NONSPECIFIC ST ABNORMALITY ABNORMAL ECG WHEN COMPARED WITH ECG OF 23-MAR-2020 21:34, VENT. RATE HAS INCREASED BY 30 BPM Confirmed by RONNY AMIN MD ([id number]) on 04/12/2020 9:34:23 PM Referred By: Confirmed By:RONNY AMIN MD
[2020-04-13] MEDS: LACTATED RINGERS SOLUTION 1,000 ML/1,000 ML INFUS.BAG IV SCH ×2 (06:53→18:42)
[2020-04-13] MEDS: oxyCODONE HCL 5 MG TABLET PO PRN (06:56)
[2020-04-13 07:42] LABS: PROTHROMBIN TIME (PATIENT) 23.8 SEC (9.7-13.0)
[2020-04-13 07:50] LABS: BASO % 0.5 % (0-2.0); HEMATOCRIT 31.2 % (35.4-49); HEMOGLOBIN 10.7 GM/dL (11.7-16.9); LYMPH % 5.9 % (8-40); MCH 32.1 pg (25.7-33.7); MCHC 34.2 g/dl (32.0-35.9); MEAN CELL VOLUME 93.8 fl (80-96); MEAN PLT VOLUME 10.7 fl (7.5-11.1); MONO % 11.1 % (3.8-10.2); NEUT % 81.5 % (42.8-82.8); PLATELET COUNT 89 K/MM3 (134-434); RBC 3.32 M/mm3 (4.00-5.60); RDW 14.8 % (11.9-15.9); WHITE BLOOD COUNT 7.9 K/mm3 (4.0-10.0)
[2020-04-13 08:05] LABS: ALBUMIN 2.1 g/dl (3.4-5.0); BILIRUBIN,DIRECT 3.2 mg/dL (0.0-0.2); BILIRUBIN,TOTAL 4.4 mg/dL (0.2-1); BLOOD UREA NITROGEN 17.9 mg/dL (7-18); CALCIUM 7.4 mg/dL (8.5-10.1); CREATININE 0.8 mg/dL (0.55-1.3); MAGNESIUM 2.2 mg/dL (1.8-2.4); POTASSIUM 3.7 mmol/L (3.5-5.1); TOT PROT 4.7 g/dl (6.4-8.2)
[2020-04-13] MEDS ORDERED: PT OWN MED DRAWER 7, Y5N ONE (08:41)
[2020-04-13] MEDS: FONDAPARINUX SODIUM 7.5 MG/0.6 ML SYRINGE SQ SCH (09:00)
[2020-04-13] MEDS: PANTOPRAZOLE 40 MG TABLET PO SCH (09:01)
--- NOTE | 2020-04-13 09:35 | PN.GI ---
GI Progress Note Subjective: No acute events No overt bleeding + abdominal pain - Objective Vital Signs: Vital Signs Temperature 98.1 F 04/13/20 08:29 Pulse Rate 75 04/13/20 08:29 Respiratory Rate 16 04/13/20 08:29 Blood Pressure 141/80 04/13/20 08:29 O2 Sat by Pulse Oximetry (%) 98 04/13/20 09:00 Constitutional: Calm Eyes: Yes: Sclera Icterus Cardiovascular: Yes: Regular Rate and Rhythm Respiratory: Yes: Diminished (at bases bilaterally) Gastrointestinal Inspection: No: Distention ...Auscultate: Yes: Normoactive Bowel Sounds ...Palpate: Yes: Soft, Tenderness (TTP RUQ / mid abdomen) Edema: LUE: 2+ Neurological: Yes: Alert Labs: CBC, BMP 04/13/20 06:46 04/13/20 06:46 INR, PTT INR 2.00 (0.83-1.09) H 04/13/20 06:46 Fibrinogen 294.0 mg/dL (238-498) 04/11/20 23:00 Hepatic Panel Total Bilirubin 4.4 mg/dL (0.2-1) H 04/13/20 06:46 Direct Bilirubin 3.2 mg/dL (0.0-0.2) H 04/13/20 06:46 AST 103 U/L (15-37) H 04/13/20 06:46 ALT 54 U/L (13-61) 04/13/20 06:46 Alkaline Phosphatase 274 U/L (45-117) H 04/13/20 06:46 Albumin 2.1 g/dl (3.4-5.0) L 04/13/20 06:46 Assessment/Plan Metastatic Pancreatic Cancer: Will need follow-up with Oncologist as outpatient Check abdominal US to evaluate for biliary tract dilatation. If progressive dilation of the biliary tract, agree with Dr. Nolasco's assessment that transfer to a tertiary care center should be considered for metallic stent placement when anticiagulation can be held Management of PE/ DVT per heme/onc
--- NOTE | 2020-04-13 09:58 | PN ---
Physical Exam: SUBJECTIVE: Patient seen and examined this AM. No new complaints. Denies any gross bleeding but continues to have abdominal pain. OBJECTIVE: Vital Signs Period Temp Pulse Resp BP Sys/De Paz Pulse Ox Last 24 Hr 98.1 F-98.6 F 65-75 16-23 118-141/68-86 95-98 GENERAL: A&Ox3, NAD HEAD: NCAT EYES: PERRL, EOMI ENT: MMM NECK: Supple LUNGS: Diminished breath sounds at the bases, No wheezes HEART: Regular rate and rhythm, normal S1 and S2 without murmur ABDOMEN: Soft, nontender, not distended, + bowel sounds, no guarding EXTREMITIES: RUE nonpittingedema, Erythema Overlying R Forearm with tenderness to mild palpation, No LE edema NEUROLOGICAL: Cranial nerves II-XII intact. SKIN: Warm, dry Laboratory Last Values WBC 7.9 K/mm3 (4.0-10.0) 04/13/20 06:46 WBC Cancelled 04/13/20 06:46 Corrected WBC (auto) Cancelled 04/13/20 06:46 RBC 3.32 M/mm3 (4.00-5.60) L 04/13/20 06:46 RBC Cancelled 04/13/20 06:46 Hgb 10.7 GM/dL (11.7-16.9) L 04/13/20 06:46 Hgb Cancelled 04/13/20 06:46 Hct 31.2 % (35.4-49) L 04/13/20 06:46 Hct Cancelled 04/13/20 06:46 MCV 93.8 fl (80-96) 04/13/20 06:46 MCV Cancelled 04/13/20 06:46 MCH 32.1 pg (25.7-33.7) 04/13/20 06:46 MCH Cancelled 04/13/20 06:46 MCHC 34.2 g/dl (32.0-35.9) 04/13/20 06:46 MCHC Cancelled 04/13/20 06:46 RDW 14.8 % (11.9-15.9) 04/13/20 06:46 RDW Cancelled 04/13/20 06:46 Plt Count 89 K/MM3 (134-434) L 04/13/20 06:46 Plt Count Cancelled 04/13/20 06:46 MPV 10.7 fl (7.5-11.1) 04/13/20 06:46 MPV Cancelled 04/13/20 06:46 Absolute Neuts (auto) 6.5 K/mm3 (1.5-8.0) 04/13/20 06:46 Neutrophils % 81.5 % (42.8-82.8) 04/13/20 06:46 Lymphocytes % 5.9 % (8-40) L D 04/13/20 06:46 Monocytes % 11.1 % (3.8-10.2) H 04/13/20 06:46 Eosinophils % 1.0 % (0-4.5) 04/13/20 06:46 Basophils % 0.5 % (0-2.0) 04/13/20 06:46 Nucleated RBC % 0 % (0-0) 04/13/20 06:46 Manual Slide Review Cancelled 04/13/20 06:46 Platelet Comment Cancelled 04/13/20 06:46 PT with INR 23.80 SEC (9.7-13.0) H 04/13/20 06:46 INR 2.00 (0.83-1.09) H 04/13/20 06:46 PTT (Actin FS) 78.2 SECONDS (25.2-36.5) H 04/12/20 06:06 Fibrinogen 294.0 mg/dL (238-498) 04/11/20 23:00 Sodium 139 mmol/L (136-145) 04/13/20 06:46 Potassium 3.7 mmol/L (3.5-5.1) 04/13/20 06:46 Chloride 104 mmol/L (98-107) 04/13/20 06:46 Carbon Dioxide 27 mmol/L (21-32) 04/13/20 06:46 Anion Gap 8 MMOL/L (8-16) 04/13/20 06:46 BUN 17.9 mg/dL (7-18) 04/13/20 06:46 Creatinine 0.8 mg/dL (0.55-1.3) 04/13/20 06:46 Est GFR (CKD-EPI)AfAm 101.99 04/13/20 06:46 Est GFR (CKD-EPI)NonAf 88.00 04/13/20 06:46 Random Glucose 114 mg/dL (74-106) H 04/13/20 06:46 Calcium 7.4 mg/dL (8.5-10.1) L 04/13/20 06:46 Phosphorus 2.0 mg/dL (2.5-4.9) L 04/11/20 06:12 Magnesium 2.2 mg/dL (1.8-2.4) 04/13/20 06:46 Iron 32 ug/dL (50-175) L 04/12/20 06:06 TIBC 81 ug/dL (250-450) L 04/12/20 06:06 Iron Saturation 39 % (17.5-39) 04/12/20 06:06 Unsaturated IBC 49 ug/dL (200-275) L 04/12/20 06:06 Ferritin 5061.4 ng/ml (8-388) H 04/12/20 15:19 Total Bilirubin 4.4 mg/dL (0.2-1) H 04/13/20 06:46 Direct Bilirubin 3.2 mg/dL (0.0-0.2) H 04/13/20 06:46 AST 103 U/L (15-37) H 04/13/20 06:46 ALT 54 U/L (13-61) 04/13/20 06:46 Alkaline Phosphatase 274 U/L (45-117) H 04/13/20 06:46 LD Total 731 U/L (87-246) H 04/13/20 06:46 Creatine Kinase 42 U/L (26-308) 04/10/20 20:10 Troponin I < 0.02 ng/ml (0.00-0.05) 04/11/20 01:22 Total Protein 4.7 g/dl (6.4-8.2) L 04/13/20 06:46 Albumin 2.1 g/dl (3.4-5.0) L 04/13/20 06:46 Urine Color Dk yellow 04/12/20 09:00 Urine Appearance Clear 04/12/20 09:00 Urine pH 5.0 (5.0-8.0) 04/12/20 09:00 Ur Specific [place] 1.025 (1.010-1.035) 04/12/20 09:00 Urine Protein Trace (NEGATIVE) 04/12/20 09:00 Urine Glucose (UA) Negative (NEGATIVE) 04/12/20 09:00 Urine Ketones Negative (NEGATIVE) 04/12/20 09:00 Urine Blood Negative (NEGATIVE) 04/12/20 09:00 Urine Nitrite Positive (NEGATIVE) H 04/12/20 09:00 Urine Bilirubin 1+ (NEGATIVE) H 04/12/20 09:00 Urine Urobilinogen 2.0 mg/dL (0.2-1.0) 04/12/20 09:00 Ur Leukocyte Esterase Negative (NEGATIVE) 04/12/20 09:00 Urine WBC (Auto) 2 /uL (0-25.8) 04/12/20 09:00 Urine RBC (Auto) 12 /uL (0-23.9) 04/12/20 09:00 Urine Casts (Auto) 1 /uL (0-3.1) 04/12/20 09:00 U Epithel Cells (Auto) 2 /uL (0-25.1) 04/12/20 09:00 Urine Bacteria (Auto) Moderate /uL (0-1359) 04/12/20 09:00 Ur Random Creatinine 133.0 mg/dL (30-150) 04/12/20 09:00 Stool Occult Blood Negative (NEGATIVE) 04/12/20 13:45 COVID-19 ([place]) Not detected (Not Detected) 04/11/20 00:10 Blood Type B POSITIVE 04/12/20 09:50 Antibody Screen Negative 04/12/20 09:50 Crossmatch See Detail 04/12/20 09:50 ASSESSMENT/PLAN: 75 y/o M PMHx Metastatic pancreatic adenocarcinoma (recently diagnosed via liver bx and discharged from [facility] on 03/31 on DOAC as hospital course was complicated by PVT; Has only followed with Rad/Onc and ?Refused Chemotherapy), former smoker and EtOH abuse presented with RUE pain/swelling/discoloration after being found to have RUE DVT at his outpatient oncologists office, admitted for PE found on imaging. Patient endorses noncompliance for the last week with DOAC use. Patient admitted to tele and started on Heparin GTT however concern arose for BURAK given acute drop in PLT. Heparin GTT was switched to Fondaparinux (bivalirudin is nonformulary) as repeat CBC revealed improvement. #Acute Blood Loss Anemia -Etiology to be determined; Possibly dilutional as there is no clinical evidence for bleed, Will need to R/O HIT -S/P 2u PRBC Transfusion as H&H was previously downtrending; H&H Now stable -S/P 5mg Vit K PO for Prolonged PT as coagulopathy likely due to vit K deficiency (Less likely due to metastatic disease to the liver) -Resume Fondaparinux; Can use apixaban 10 mg BID x 7 days, then 5 mg BID there after -Follow PF4 ab, PAUL, Fibrinogen -GI Evaluation appreciated; Will need referral to tertiary care for metallic CBD stent pending Abd US for billiary obstruction -PPI -Analgesia #Acute Pulmonary embolism + RUE DVT -In the setting of Pancreatic cancer not currently on therapy and noncompliance with previously Rx'ed DOAC -Heparin Gtt transitioned to Fondaparinux #Metastatic pancreatic adenocarcinoma -Outpatient oncology follow up -Palliative care consult Visit type - Emergency Visit Emergency Visit: Yes ED Registration Date: 04/10/20 Care time: The patient presented to the Emergency Department on the above date and was hospitalized for further evaluation of their emergent condition. - New Patient This patient is new to me today: Yes Date on this admission: 04/16/20 - Critical Care Critical Care patient: No - Discharge Referral Referred to [facility] Med P.C.: No - Medication Review Med list reviewed for High Risk Meds patients 65 and older: Yes ATTENDING PHYSICIAN STATEMENT I saw and evaluated the patient. I reviewed the resident's note and discussed the case with the resident. I agree with the resident's findings and plan as documented. SUBJECTIVE: OBJECTIVE: ASSESSMENT AND PLAN:
[2020-04-13] MEDS ORDERED: HYDROmorphone HCl 2 MG/ML VIAL IVPB PRN (10:53)
--- NOTE | 2020-04-13 12:27 | PN ---
Progress Note (short form) - Note Progress Note: Resting in NAD on RA. Denies CP or SOB. Still with abdominal discomfort. No acute events overnight. Intake & Output 04/10/20 04/11/20 04/12/20 04/13/20 23:59 23:59 23:59 23:59 Intake Total 1705 2749 996 Output Total 0 750 Balance 1705 1999 996 Weight 153 lb 163 lb Last Vital Signs Temp Pulse Resp BP Pulse Ox 98.1 F 68 16 120/83 100 04/13/20 08:29 04/13/20 12:05 04/13/20 12:05 04/13/20 12:05 04/13/20 12:05 Active Medications Docusate Sodium (Colace -) 100 mg PO TID [facility] Fentanyl (Duragesic 12mcg Patch -) 1 patch TD Q72H [facility] Stop: 04/18/20 09:58 Last Admin: 04/11/20 10:15 Dose: 1 patch Documented by: Fondaparinux (Fondaparinux Sodium) 7.5 mg SQ DAILY [facility] Last Admin: 04/13/20 09:00 Dose: 7.5 mg Documented by: Hydromorphone HCl (Dilaudid Vial -) 0.5 mg IVPB Q2H PRN PRN Reason: PAIN LEVEL 7 - 10 Last Admin: 04/13/20 11:54 Dose: 0.5 mg Documented by: Lactated Ringer's (Lactated Ringers Solution) 1,000 ml in 1,000 mls @ 83 mls/hr IV ASDIR [facility] Last Admin: 04/13/20 06:53 Dose: 83 mls/hr Documented by: Miscellaneous (Duragesic Patch Waste) 1 each TD PRN PRN PRN Reason: PAIN Oxycodone HCl (Roxicodone -) 10 mg PO Q3H PRN PRN Reason: PAIN LEVEL 7 - 10 Last Admin: 04/13/20 06:56 Dose: 10 mg Documented by: Pantoprazole Sodium (Protonix -) 40 mg PO DAILY [facility] Last Admin: 04/13/20 09:01 Dose: 40 mg Documented by: Constitutional: Yes: Jaundiced, NAD Eyes: Yes: Sclera Icterus HENT: Yes: Atraumatic, Normocephalic Neck: Yes: Supple, Trachea Midline Cardiovascular: Yes: Regular Rate and Rhythm Respiratory: Yes: Diminished (at bases) Gastrointestinal: Yes: Soft, (+) Tenderness Edema: No Neurological: Yes: Alert, Oriented Labs: Laboratory Results - last 24 hr 04/12/20 04/12/20 04/12/20 09:50 12:40 13:45 WBC 4.0 Corrected WBC (auto) RBC 1.88 L Hgb 6.0 L* Hct 18.5 L MCV 98.1 H MCH 32.1 MCHC 32.7 RDW 14.6 Plt Count 46 L MPV 10.0 Absolute Neuts (auto) 3.3 Neutrophils % 81.2 Lymphocytes % 5.5 L D Monocytes % 11.6 H Eosinophils % 1.3 Basophils % 0.4 Nucleated RBC % 0 Manual Slide Review Platelet Comment PT with INR INR Sodium Potassium Chloride Carbon Dioxide Anion Gap BUN Creatinine Est GFR (CKD-EPI)AfAm Est GFR (CKD-EPI)NonAf Random Glucose Calcium Magnesium Ferritin Total Bilirubin Direct Bilirubin AST ALT Alkaline Phosphatase LD Total Total Protein Albumin Stool Occult Blood Negative Blood Type B POSITIVE Antibody Screen Negative Crossmatch See Detail 04/12/20 04/12/20 04/13/20 15:00 15:19 06:46 WBC 9.2 Cancelled Corrected WBC (auto) Cancelled RBC 3.39 L Cancelled Hgb 11.1 L Cancelled Hct 32.4 L D Cancelled MCV 95.7 Cancelled MCH 32.7 Cancelled MCHC 34.1 Cancelled RDW 14.3 Cancelled Plt Count 98 L D Cancelled MPV 11.1 D Cancelled Absolute Neuts (auto) 7.7 Neutrophils % 83.5 H Lymphocytes % 4.9 L Monocytes % 10.3 H Eosinophils % 0.9 Basophils % 0.4 Nucleated RBC % 0 Manual Slide Review Cancelled Platelet Comment Cancelled PT with INR INR Sodium Potassium Chloride Carbon Dioxide Anion Gap BUN Creatinine Est GFR (CKD-EPI)AfAm Est GFR (CKD-EPI)NonAf Random Glucose Calcium Magnesium Ferritin 5061.4 H Total Bilirubin Direct Bilirubin AST ALT Alkaline Phosphatase LD Total 713 H Total Protein Albumin Stool Occult Blood Blood Type Antibody Screen Crossmatch 04/13/20 04/13/20 04/13/20 06:46 06:46 06:46 WBC 7.9 Corrected WBC (auto) RBC 3.32 L Hgb 10.7 L Hct 31.2 L MCV 93.8 MCH 32.1 MCHC 34.2 RDW 14.8 Plt Count 89 L MPV 10.7 Absolute Neuts (auto) 6.5 Neutrophils % 81.5 Lymphocytes % 5.9 L D Monocytes % 11.1 H Eosinophils % 1.0 Basophils % 0.5 Nucleated RBC % 0 Manual Slide Review Platelet Comment PT with INR 23.80 H INR 2.00 H Sodium 139 Potassium 3.7 Chloride 104 Carbon Dioxide 27 Anion Gap 8 BUN 17.9 Creatinine 0.8 Est GFR (CKD-EPI)AfAm 101.99 Est GFR (CKD-EPI)NonAf 88.00 Random Glucose 114 H Calcium 7.4 L Magnesium 2.2 Ferritin Total Bilirubin 4.4 H Direct Bilirubin 3.2 H AST 103 H ALT 54 Alkaline Phosphatase 274 H LD Total 731 H Total Protein 4.7 L Albumin 2.1 L Stool Occult Blood Blood Type Antibody Screen Crossmatch Imaging - Results Cat Scan: Report Reviewed, Image Reviewed (small RUL, RLL filling defects) Assessment/Plan Acute Pulmonary Emboli Metastatic Pancreatic Cancer RUE DVT Acute Kidney Injury improved - continue anticoagulation (Noted Fondaparinux) - echocardiogram (although PEs are small) - O2 to keep SpO2 >90% Dr Ambrose
[2020-04-13] MEDS ORDERED: FENTANYL PATCH WASTE TD PRN (14:08)
--- NOTE | 2020-04-13 14:14 | PN ---
Physical Exam: SUBJECTIVE: Patient seen and examined. awake and alert. OBJECTIVE: increase fentanyl patch, dilaudid 0.5mg prn q 4 for breakthrough pain patient was on oxycodone from previous admission and will need monitoring on high dose opiod therapy as he became sleepy and lethargic on last admission while on opioids ----- Patient is a 75 male with a past medical history of right inguinal hernia s/p repair in , ETOH abuse (quit apx month ago, drank 1 pint vodka daily), former smoker and newly found pancreatic cancer with liver lesions on [facility]. Pt was being evaluated by Dr. Longoria (oncologist) on Monday when he was noted to have right arm edema. He was sent to [facility] for further evaluation. He was found to have an acute DVT of right arm and an acute RLL PE on CTA imaging. Also noted to have SY. he was on a heparin drip. His hmg/hct trended down today and platelets continued to drop. heparin drip stopped and placed on fondaparinux. repeat hmg/hct downtrending. discussed with GI and a ct abd/pelvis recommended to rule out retroperitoneal bleed recommended. a ct of right arm ordered to rule out hematoma. he is having brown soft stools and UA sent. stool for occult blood negative. Appears that the critical low hmg/hct was secondary to lab error. no signs of bleeding. no bleeding or hematoma seen on imaging. per GI, patient should be evaluated by a [facility] for possible stent placement. Spoke to patient about outpatient follow up at [facility] (Dr. Pete Downs) and patient refusing at this time. He tells me that he is not seeking invasive treatments at this time. He will discuss with his oncologist. Vital Signs Period Temp Pulse Resp BP Sys/De Paz Pulse Ox Last 24 Hr 98.1 F-98.6 F 65-75 16-22 118-141/68-83 95-100 GENERAL: The patient is awake, alert, and fully oriented, in no acute distress. HEAD: Normal with no signs of trauma. EYES: PERRL, extraocular movements intact, sclera anicteric, conjunctiva clear. No ptosis. ENT: Ears normal, nares patent, oropharynx clear without exudates NECK: Trachea midline, full range of motion, supple. LUNGS: Breath sounds equal, clear to auscultation bilaterally HEART: Regular rate and rhythm ABDOMEN: Soft, nontender, nondistended, normoactive bowel sounds EXTREMITIES: right arm edema with right lower arm erythema and pain, found to have a right DVT. NEUROLOGICAL: Normal speech, gait not observed. PSYCH: Normal mood, normal affect. Laboratory Results - last 24 hr 04/12/20 04/12/20 04/12/20 09:50 13:45 15:00 WBC 9.2 Corrected WBC (auto) RBC 3.39 L Hgb 11.1 L Hct 32.4 L D MCV 95.7 MCH 32.7 MCHC 34.1 RDW 14.3 Plt Count 98 L D MPV 11.1 D Absolute Neuts (auto) 7.7 Neutrophils % 83.5 H Lymphocytes % 4.9 L Monocytes % 10.3 H Eosinophils % 0.9 Basophils % 0.4 Nucleated RBC % 0 Manual Slide Review Platelet Comment PT with INR INR Sodium Potassium Chloride Carbon Dioxide Anion Gap BUN Creatinine Est GFR (CKD-EPI)AfAm Est GFR (CKD-EPI)NonAf Random Glucose Calcium Magnesium Ferritin Total Bilirubin Direct Bilirubin AST ALT Alkaline Phosphatase LD Total Total Protein Albumin Stool Occult Blood Negative Crossmatch See Detail 04/12/20 04/13/20 04/13/20 15:19 06:46 06:46 WBC Cancelled 7.9 Corrected WBC (auto) Cancelled RBC Cancelled 3.32 L Hgb Cancelled 10.7 L Hct Cancelled 31.2 L MCV Cancelled 93.8 MCH Cancelled 32.1 MCHC Cancelled 34.2 RDW Cancelled 14.8 Plt Count Cancelled 89 L MPV Cancelled 10.7 Absolute Neuts (auto) 6.5 Neutrophils % 81.5 Lymphocytes % 5.9 L D Monocytes % 11.1 H Eosinophils % 1.0 Basophils % 0.5 Nucleated RBC % 0 Manual Slide Review Cancelled Platelet Comment Cancelled PT with INR INR Sodium Potassium Chloride Carbon Dioxide Anion Gap BUN Creatinine Est GFR (CKD-EPI)AfAm Est GFR (CKD-EPI)NonAf Random Glucose Calcium Magnesium Ferritin 5061.4 H Total Bilirubin Direct Bilirubin AST ALT Alkaline Phosphatase LD Total 713 H Total Protein Albumin Stool Occult Blood Crossmatch 04/13/20 04/13/20 06:46 06:46 WBC Corrected WBC (auto) RBC Hgb Hct MCV MCH MCHC RDW Plt Count MPV Absolute Neuts (auto) Neutrophils % Lymphocytes % Monocytes % Eosinophils % Basophils % Nucleated RBC % Manual Slide Review Platelet Comment PT with INR 23.80 H INR 2.00 H Sodium 139 Potassium 3.7 Chloride 104 Carbon Dioxide 27 Anion Gap 8 BUN 17.9 Creatinine 0.8 Est GFR (CKD-EPI)AfAm 101.99 Est GFR (CKD-EPI)NonAf 88.00 Random Glucose 114 H Calcium 7.4 L Magnesium 2.2 Ferritin Total Bilirubin 4.4 H Direct Bilirubin 3.2 H AST 103 H ALT 54 Alkaline Phosphatase 274 H LD Total 731 H Total Protein 4.7 L Albumin 2.1 L Stool Occult Blood Crossmatch Active Medications Generic Name Dose Route Start Last Admin Trade Name Freq PRN Reason Stop Dose Admin Docusate Sodium 100 mg 04/13/20 14:00 Colace - PO TID AIRAM Fentanyl 1 patch 04/13/20 14:15 Duragesic 25mcg Patch - TD 04/20/20 14:08 Q72H AIRAM Fondaparinux 7.5 mg 04/12/20 10:00 04/13/20 09:00 Fondaparinux Sodium SQ 7.5 mg DAILY AIRAM Administration Hydromorphone HCl 0.5 mg 04/13/20 14:13 Dilaudid Vial - IVPB Q4H PRN PAIN LEVEL 7 - 10 Lactated Ringer's 1,000 ml in 1,000 mls @ 83 mls/hr 04/11/20 01:15 04/13/20 06:53 Lactated Ringers Solution IV 83 mls/hr ASDIR AIRAM Administration Miscellaneous 1 each 04/11/20 09:58 Duragesic Patch Waste TD PRN PRN PAIN Miscellaneous 1 each 04/13/20 14:08 Duragesic Patch Waste MC PRN PRN PAIN Pantoprazole Sodium 40 mg 04/13/20 10:00 04/13/20 09:01 Protonix - PO 40 mg DAILY AIRAM Administration ASSESSMENT/PLAN: Problem List - Problems (1) Acute blood loss anemia Assessment/Plan: likely lab error as hmg/hct repeat is at patient's baseline. concern for HIT, heparin drip stopped and placed on fondaparinux. imaging done on 04/12 (right arm ct and abd/pelvic ct) without signs of bleeding. Code(s): D62 - ACUTE POSTHEMORRHAGIC ANEMIA (2) Acute pulmonary embolism Assessment/Plan: Acute RLL PE seen on CTA was on heparin drip but transitioned to Fondaparinux after concern for HIT with heparin drip. heme/onc following pulmonary following Code(s): I26.99 - OTHER PULMONARY EMBOLISM WITHOUT ACUTE COR PULMONALE (3) Deep vein thrombosis (DVT) of axillary vein of right upper extremity Assessment/Plan: extensive right arm dvt. RLL PE lower ext venous doppler ordered to rule out leg DVT on a/c. will transition to eliquis on d/c Code(s): I82.A11 - ACUTE EMBOLISM AND THROMBOSIS OF RIGHT AXILLARY VEIN Qualifiers: Chronicity: acute Qualified Code(s): I82.A11 - Acute embolism and thrombosis of right axillary vein (4) Pancreatic cancer Assessment/Plan: pancreatic cancer with liver mets. patient followed up with Dr Longoria for treatment option on Monday, but was sent to ED for right arm DVT. has not yet started treatment. on previous admission, he refused chemo and RT heme/onc following liver biopsy confirms adenocarcinoma well to moderately differentiated Code(s): C25.9 - MALIGNANT NEOPLASM OF PANCREAS, UNSPECIFIED (5) Abdominal pain Assessment/Plan: intermittent abdominal pain, on pain regimen Code(s): R10.9 - UNSPECIFIED ABDOMINAL PAIN (6) DVT prophylaxis Assessment/Plan: on fondaparinux Code(s): Z29.9 - ENCOUNTER FOR PROPHYLACTIC MEASURES, UNSPECIFIED (7) Former consumption of alcohol Assessment/Plan: patient quit early February 2020, no withdrawal symptoms currently. Code(s): Z87.898 - PERSONAL HISTORY OF OTHER SPECIFIED CONDITIONS (8) Portal vein thrombosis Assessment/Plan: CT scan concerning for a portal vein thrombosis, however portal vein thrombosis not seen on ultrasound done 03/30/2020. patient refused further imaging and was sent home on Eliquis 5 mb BID. He tells me that he ran out of the Eliquis and presents back to [facility] acute right arm dvt Code(s): I81 - PORTAL VEIN THROMBOSIS (9) Thrombocytopenia Assessment/Plan: monitor cbc with daily labs Code(s): D69.6 - THROMBOCYTOPENIA, UNSPECIFIED (10) DVT prophylaxis Assessment/Plan: on fondaparnix Code(s): Z29.9 - ENCOUNTER FOR PROPHYLACTIC MEASURES, UNSPECIFIED Visit type - Emergency Visit Emergency Visit: Yes ED Registration Date: 04/10/20 Care time: The patient presented to the Emergency Department on the above date and was hospitalized for further evaluation of their emergent condition. - New Patient This patient is new to me today: No - Critical Care Critical Care patient: No - Discharge Referral Referred to [facility] Med P.C.: No - Medication Review Med list reviewed for High Risk Meds patients 65 and older: Yes
[2020-04-13] MEDS ORDERED: fentaNYL 25mcg/hr PATCH.TD72 TD SCH (14:15)
--- NOTE | 2020-04-13 14:57 | ECHO ---
Name: TRENT GALLAGHER Exam:Adult Echocardiogram Study Date: 04/13/2020 11:12 AM Age: 75 yrs Reason For Study: Assess for right heart strain. Height: 69 in Weight: 163 lb BSA: 1.9 m2 BP: 141/80 mmHg MMode/2D Measurements & Calculations RVDd: 4.1 cm Ao root diam: 3.5 cm IVSd: 0.94 cm LA dimension: 2.9 cm LVIDd: 3.7 cm ACS: 2.2 cm LVIDs: 2.6 cm LVPWd: 0.98 cm EDV(Teich): 58.0 ml LVOT diam: 2.1 cm ESV(Teich): 24.3 ml LAV (MOD-bp): 34.0 ml TAPSE: 2.4 cm RV S Alexys: 18.4 cm/sec Doppler Measurements & Calculations MV E max alexys: 51.3 cm/sec Ao V2 max: 118.1 cm/sec MV A max alexys: 81.9 cm/sec Ao max P.6 mmHg MV E/A: 0.63 Ao V2 mean: 81.3 cm/sec MV dec time: 0.34 sec Ao mean P.0 mmHg Ao V2 VTI: 21.7 cm RL(I,D): 3.0 cm2 RL(V,D): 2.9 cm2 LV V1 max P.0 mmHg SV(LVOT): 64.5 ml LV V1 mean P.1 mmHg LV V1 max: 99.7 cm/sec LV V1 mean: 67.7 cm/sec LV V1 VTI: 18.6 cm PA V2 max: 30.6 cm/sec Med Peak E' Alexys: 8.2 cm/sec PA max P.37 mmHg Med E/e': 6.3 Lat Peak E' Alexys: 12.9 cm/sec Lat E/e': 4.0 Tech Comments TDS due to poor acoustic windows and orientation of patient's heart. No PLAX/SAX views. Procedure A complete two-dimensional transthoracic echocardiogram was performed (2D, M-mode, Doppler and color flow Doppler). Technically limitied study. Left Ventricle The left ventricle is normal in size. Left ventricular systolic function is normal. Ejection Fraction = 55- 60%. No regional wall motion abnormalities noted. Right Ventricle The right ventricle is not well visualized. Atria The left atrial size is normal. Right atrium not well visualized. Mitral Valve The mitral valve is normal in structure and function. There is no mitral regurgitation noted. Tricuspid Valve The tricuspid valve is normal in structure and function. No tricuspid regurgitation. Aortic Valve The aortic valve is normal in structure and function. No aortic regurgitation is present. Pulmonic Valve The pulmonic valve is not well visualized. Great Vessels The aortic root is normal size. Pericardium/Pleura There is no pericardial effusion. Interpretation Summary Technically limitied study The left ventricle is normal in size. Left ventricular systolic function is normal. No regional wall motion abnormalities noted. The right ventricle is not well visualized. valvular regurgitations could not be accurately assessed due to poor acoutstic window There is no pericardial effusion. Ejection Fraction = 55-60%. Justin Nash MD 04/13/2020 02:57 PM
[2020-04-13] MEDS: DOCUSATE SODIUM 100 MG CAPSULE (FP) PO SCH ×2 (14:59→22:29)
--- NOTE | 2020-04-13 15:17 | PN ---
Teaching Attending Note Name of Resident: Lupe Butler ATTENDING PHYSICIAN STATEMENT I saw and evaluated the patient. I reviewed the resident's note and discussed the case with the resident. I agree with the resident's findings and plan as documented. 75y M with recently dx metastatic pancreatic ca presents with RUE edema and pain and found to have acute DVT as well as PE thought to be due to non compliance with AC he was rx for PVT (pt ran out of medications and did not follow up as outpatient) Patient was initially started on heparin but there was concern for BURAK given a sudden acute platelet drop (which later was thought to be due to lab error) Regardless he was started on fondaparinux and Platelet antibody is pending. -would continue fondaparinux until platelet antibody returns; if it is negative, can resume home dose eliquis. If positive, will need confirmation with PAUL. -Discussed in detail the natural progression and disease course for metastatic pancreatic cancer. It seems Mr Mora is having a hard time grasping the gravity of the situation and has poor health literacy. Would recommend Palliative care consult to aid in goals of care/symptom management. Patient can follow as outpatient for further treatment discussions regarding his malignancy. He should continue anticoagulation indefinitely for now
[2020-04-13] MEDS: HYDROmorphone HCl 2 MG/ML VIAL IVPB PRN (18:33)
[2020-04-14] MEDS: HYDROmorphone HCl 2 MG/ML VIAL IVPB PRN ×3 (04:16→20:42)
[2020-04-14] MEDS: LACTATED RINGERS SOLUTION 1,000 ML/1,000 ML INFUS.BAG IV SCH ×3 (04:21→18:57)
[2020-04-14 07:32] LABS: BASO % 0.5 % (0-2.0); HEMATOCRIT 30.9 % (35.4-49); HEMOGLOBIN 10.5 GM/dL (11.7-16.9); LYMPH % 4.9 % (8-40); MCH 31.9 pg (25.7-33.7); MCHC 33.8 g/dl (32.0-35.9); MEAN CELL VOLUME 94.4 fl (80-96); MEAN PLT VOLUME 10.6 fl (7.5-11.1); MONO % 10.9 % (3.8-10.2); NEUT % 82.7 % (42.8-82.8); PLATELET COUNT 90 K/MM3 (134-434); RBC 3.28 M/mm3 (4.00-5.60); RDW 14.7 % (11.9-15.9); WHITE BLOOD COUNT 8.6 K/mm3 (4.0-10.0)
--- NOTE | 2020-04-14 07:36 | PN ---
Progress Note, Physician Chief Complaint: Seen and examined in bed. Tearful during encounter regarding cancer prognosis. States fentanyl patch is helping manage pain. Palliative consult placed. Breathing improved-on RA History of Present Illness: Patient is a 75 male with a past medical history of right inguinal hernia s/p repair in , ETOH abuse (quit apx month ago, drank 1 pint vodka daily), former smoker and newly found pancreatic cancer with liver lesions on recent admission at [facility]. Pt was being evaluated by Dr. Longoria (oncologist) on Monday when he was noted to have right arm edema. He was sent to [facility] for further evaluation. He was found to have an acute DVT of right arm and an acute RLL PE on CTA imaging. Also noted to have SY. he was on a heparin drip. His hmg/hct trended down today and platelets continued to drop. heparin drip stopped and placed on fondaparinux. repeat hmg/hct downtrending. discussed with GI and a ct abd/pelvis recommended to rule out retroperitoneal bleed recommended. a ct of right arm ordered to rule out hematoma. he is having brown soft stools and UA sent. stool for occult blood negative. - Current Medication List Current Medications: Active Medications Docusate Sodium (Colace -) 100 mg PO TID [facility] Last Admin: 04/13/20 22:29 Dose: Not Given Documented by: Fentanyl (Duragesic 25mcg Patch -) 1 patch TD Q72H [facility] Stop: 04/20/20 14:08 Last Admin: 04/13/20 14:58 Dose: 1 patch Documented by: Fondaparinux (Fondaparinux Sodium) 7.5 mg SQ DAILY [facility] Last Admin: 04/13/20 09:00 Dose: 7.5 mg Documented by: Hydromorphone HCl (Dilaudid Vial -) 0.5 mg IVPB Q4H PRN PRN Reason: PAIN LEVEL 7 - 10 Last Admin: 04/14/20 04:16 Dose: 0.5 mg Documented by: Lactated Ringer's (Lactated Ringers Solution) 1,000 ml in 1,000 mls @ 83 mls/hr IV ASDIR [facility] Last Admin: 04/14/20 04:21 Dose: 83 mls/hr Documented by: Miscellaneous (Duragesic Patch Waste) 1 each TD PRN PRN PRN Reason: PAIN Pantoprazole Sodium (Protonix -) 40 mg PO DAILY AIRAM Last Admin: 04/13/20 09:01 Dose: 40 mg Documented by: - Objective Vital Signs: Vital Signs Temperature 98.2 F 04/14/20 06:00 Pulse Rate 67 04/14/20 06:00 Respiratory Rate 12 04/14/20 06:00 Blood Pressure 136/74 04/14/20 06:00 O2 Sat by Pulse Oximetry (%) 98 04/14/20 02:00 Constitutional: Yes: Well Nourished, No Distress, Calm Eyes: Yes: WNL, Conjunctiva Clear HENT: Yes: WNL, Atraumatic, Normocephalic Neck: Yes: WNL, Supple, Trachea Midline Cardiovascular: Yes: WNL, Regular Rate and Rhythm Respiratory: Yes: WNL, Regular, CTA Bilaterally Gastrointestinal: Yes: WNL, Normal Bowel Sounds Genitourinary: Yes: WNL Breast(s): Yes: WNL Musculoskeletal: Yes: WNL Edema: Yes Edema: RUE: 2+ (right arm edema with right lower arm erythema and pain, found to have a right DVT. ) Peripheral Pulses WNL: Yes Peripheral Pulses: Left Radial: 2+, Right Radial: 2+, Left Doralis Pedis: 2+, Right Dorsalis Pedis: 2+, Left Femoral: 2+, Right Femoral: 2+ Integumentary: Yes: WNL Neurological: Yes: WNL, Alert, Oriented ...Motor Strength: WNL Psychiatric: Yes: WNL Labs: INR, PTT INR 2.00 (0.83-1.09) H 04/13/20 06:46 Fibrinogen 294.0 mg/dL (238-498) 04/11/20 23:00 Problem List - Problems (1) ETOH abuse Assessment/Plan: patient quit early February 2020, no withdrawal symptoms currently. Code(s): F10.10 - ALCOHOL ABUSE, UNCOMPLICATED (2) Prophylactic measure Assessment/Plan: FEN Fluids: adequate PO intake Electrolytes: monitor & replete as needed Nutrition: reg diet DVT moderate risk Fondaparinux Dispo Maintain as inpatient full code discharge planning Code(s): Z29.9 - ENCOUNTER FOR PROPHYLACTIC MEASURES, UNSPECIFIED (3) COVID-19 ruled out by laboratory testing Assessment/Plan: negative pcr Code(s): Z03.818 - ENCNTR FOR OBS FOR SUSP EXPSR TO OTH BIOLG AGENTS RULED OUT (4) Acute pulmonary embolism Assessment/Plan: Acute RLL PE on CTA c/w Fondaparinux heme/onc following pulmonary following Code(s): I26.99 - OTHER PULMONARY EMBOLISM WITHOUT ACUTE COR PULMONALE (5) Deep vein thrombosis (DVT) of axillary vein of right upper extremity Assessment/Plan: extensive right arm DVT RLL PE c/w AC Code(s): I82.A11 - ACUTE EMBOLISM AND THROMBOSIS OF RIGHT AXILLARY VEIN Qualifiers: Chronicity: acute Qualified Code(s): I82.A11 - Acute embolism and thrombosis of right axillary vein (6) Deep vein thrombosis (DVT) of brachial vein of right upper extremity Code(s): I82.621 - ACUTE EMBOLISM AND THROMBOSIS OF DEEP VEINS OF R UP EXTREM Qualifiers: Chronicity: acute Qualified Code(s): I82.621 - Acute embolism and thrombosis of deep veins of right upper extremity (7) Pancreatic cancer Assessment/Plan: pancreatic cancer with liver mets. patient followed up with Dr Longoria for treatment option on Monday, but was sent to ED for right arm DVT. has not yet started treatment. on previous admission, he refused chemo and RT heme/onc following liver biopsy confirms adenocarcinoma well to moderately differentiated palliative care consulted Code(s): C25.9 - MALIGNANT NEOPLASM OF PANCREAS, UNSPECIFIED (8) Thrombocytopenia Assessment/Plan: plt 90 c/t monitor Code(s): D69.6 - THROMBOCYTOPENIA, UNSPECIFIED (9) Abdominal pain Assessment/Plan: resolving c/w pain regimine Code(s): R10.9 - UNSPECIFIED ABDOMINAL PAIN (10) Portal vein thrombosis Assessment/Plan: c/w AC heme/onc following Code(s): I81 - PORTAL VEIN THROMBOSIS Visit type - Emergency Visit Emergency Visit: Yes ED Registration Date: 04/10/20 Care time: The patient presented to the Emergency Department on the above date and was hospitalized for further evaluation of their emergent condition. - New Patient This patient is new to me today: Yes Date on this admission: 04/14/20 - Critical Care Critical Care patient: No - Discharge Referral Referred to [facility] Med P.C.: No - Medication Review Med list reviewed for High Risk Meds patients 65 and older: Yes
[2020-04-14 07:45] LABS: BILIRUBIN,TOTAL 4.5 mg/dL (0.2-1); BLOOD UREA NITROGEN 16.7 mg/dL (7-18); CALCIUM 7.6 mg/dL (8.5-10.1); CREATININE 0.8 mg/dL (0.55-1.3); MAGNESIUM 2.2 mg/dL (1.8-2.4); POTASSIUM 4.7 mmol/L (3.5-5.1); TOT PROT 4.6 g/dl (6.4-8.2)
[2020-04-14] MEDS ORDERED: PT OWN MED DRAWER 7, Y5N ONE (09:07)
[2020-04-14] MEDS: FONDAPARINUX SODIUM 7.5 MG/0.6 ML SYRINGE SQ SCH (09:14)
[2020-04-14] MEDS: PANTOPRAZOLE 40 MG TABLET PO SCH (09:15)
[2020-04-14] MEDS: DOCUSATE SODIUM 100 MG CAPSULE (FP) PO SCH ×2 (14:16→22:10)
--- NOTE | 2020-04-14 15:06 | PN ---
Progress Note (short form) - Note Progress Note: Resting in NAD on RA. Denies CP or SOB. Still with some abdominal discomfort. No acute events overnight. Intake & Output 04/11/20 04/12/20 04/13/20 04/14/20 23:59 23:59 23:59 23:59 Intake Total 1705 2749 2306 1939 Output Total 0 750 300 Balance 1705 1998 2306 1639 Weight 163 lb Last Vital Signs Temp Pulse Resp BP Pulse Ox 97.9 F 61 13 122/71 95 04/14/20 14:00 04/14/20 14:00 04/14/20 14:00 04/14/20 14:00 04/14/20 14:00 Active Medications Docusate Sodium (Colace -) 100 mg PO TID [facility] Last Admin: 04/14/20 14:16 Dose: 100 mg Documented by: Fentanyl (Duragesic 25mcg Patch -) 1 patch TD Q72H [facility] Stop: 04/20/20 14:08 Last Admin: 04/13/20 14:58 Dose: 1 patch Documented by: Fondaparinux (Fondaparinux Sodium) 7.5 mg SQ DAILY [facility] Last Admin: 04/14/20 09:14 Dose: 7.5 mg Documented by: Hydromorphone HCl (Dilaudid Vial -) 0.5 mg IVPB Q3H PRN PRN Reason: PAIN LEVEL 7 - 10 Lactated Ringer's (Lactated Ringers Solution) 1,000 ml in 1,000 mls @ 83 mls/hr IV ASDIR [facility] Last Admin: 04/14/20 07:30 Dose: 83 mls/hr Documented by: Miscellaneous (Duragesic Patch Waste) 1 each TD PRN PRN PRN Reason: PAIN Pantoprazole Sodium (Protonix -) 40 mg PO DAILY [facility] Last Admin: 04/14/20 09:15 Dose: 40 mg Documented by: Constitutional: Yes: Jaundiced, NAD Eyes: Yes: Sclera Icterus HENT: Yes: Atraumatic, Normocephalic Neck: Yes: Supple, Trachea Midline Cardiovascular: Yes: Regular Rate and Rhythm Respiratory: Yes: Diminished (at bases) Gastrointestinal: Yes: Soft, (+) Tenderness Edema: No Neurological: Yes: Alert, Oriented Labs: Laboratory Results - last 24 hr 04/12/20 04/14/2004/14/20 15:00 05:50 05:50 WBC 8.6 RBC 3.28 L Hgb 10.5 L Hct 30.9 L MCV 94.4 MCH 31.9 MCHC 33.8 RDW 14.7 Plt Count 90 L MPV 10.6 Absolute Neuts (auto) 7.1 Neutrophils % 82.7 Lymphocytes % 4.9 L Monocytes % 10.9 H Eosinophils % 1.0 Basophils % 0.5 Nucleated RBC % 0 Haptoglobin 77 Sodium 138 Potassium 4.7 Chloride 104 Carbon Dioxide 27 Anion Gap 7 L BUN 16.7 Creatinine 0.8 Est GFR (CKD-EPI)AfAm 101.99 Est GFR (CKD-EPI)NonAf 88.00 Random Glucose 96 Calcium 7.6 L Magnesium 2.2 Total Bilirubin 4.5 H AST 91 H ALT 49 Alkaline Phosphatase 247 H Total Protein 4.6 L Albumin 2.0 L Imaging - Results Cat Scan: Report Reviewed, Image Reviewed (small RUL, RLL filling defects) Assessment/Plan Acute Pulmonary Emboli Metastatic Pancreatic Cancer RUE DVT Acute Kidney Injury improved - continue anticoagulation (Noted Fondaparinux) - O2 to maintain saturation - Oncology workup ongoing Dr Ambrose
[2020-04-15] MEDS: HYDROmorphone HCl 2 MG/ML VIAL IVPB PRN ×5 (03:24→22:24)
[2020-04-15] MEDS: DOCUSATE SODIUM 100 MG CAPSULE (FP) PO SCH ×4 (06:00→22:24)
[2020-04-15] MEDS: LACTATED RINGERS SOLUTION 1,000 ML/1,000 ML INFUS.BAG IV SCH (06:00)
--- NOTE | 2020-04-15 07:24 | PN ---
Progress Note, Physician Chief Complaint: Seen and examined in bed. C/o mild abdominal pain to right. Relieved with pains meds. Palliative care team consulted but pt not willing it discuss GOC. History of Present Illness: Patient is a 75 male with a past medical history of right inguinal hernia s/p repair in , ETOH abuse (quit apx month ago, drank 1 pint vodka daily), former smoker and newly found pancreatic cancer with liver lesions on recent admission at [facility]. Pt was being evaluated by Dr. Longoria (oncologist) on Monday when he was noted to have right arm edema. He was sent to [facility] for further evaluation. He was found to have an acute DVT of right arm and an acute RLL PE on CTA imaging. Also noted to have SY. he was on a heparin drip. His hmg/hct trended down today and platelets continued to drop. heparin drip stopped and placed on fondaparinux. repeat hmg/hct downtrending. discussed with GI and a ct abd/pelvis recommended to rule out retroperitoneal bleed recommended. a ct of right arm ordered to rule out hematoma. he is having brown soft stools and UA sent. stool for occult blood negative. - Current Medication List Current Medications: Active Medications Docusate Sodium (Colace -) 100 mg PO TID [facility] Last Admin: 04/15/20 06:00 Dose: Not Given Documented by: Fentanyl (Duragesic 25mcg Patch -) 1 patch TD Q72H [facility] Stop: 04/20/20 14:08 Last Admin: 04/13/20 14:58 Dose: 1 patch Documented by: Fondaparinux (Fondaparinux Sodium) 7.5 mg SQ DAILY [facility] Last Admin: 04/14/20 09:14 Dose: 7.5 mg Documented by: Hydromorphone HCl (Dilaudid Vial -) 0.5 mg IVPB Q3H PRN PRN Reason: PAIN LEVEL 7 - 10 Last Admin: 04/15/20 06:15 Dose: 0.5 mg Documented by: Lactated Ringer's (Lactated Ringers Solution) 1,000 ml in 1,000 mls @ 83 mls/hr IV ASDIR [facility] Last Admin: 04/15/20 06:00 Dose: 83 mls/hr Documented by: Miscellaneous (Duragesic Patch Waste) 1 each TD PRN PRN PRN Reason: PAIN Pantoprazole Sodium (Protonix -) 40 mg PO DAILY [facility] Last Admin: 04/14/20 09:15 Dose: 40 mg Documented by: - Objective Vital Signs: Vital Signs Temperature 98.1 F 04/15/20 05:45 Pulse Rate 64 04/15/20 05:45 Respiratory Rate 20 04/15/20 05:45 Blood Pressure 143/76 04/15/20 05:45 O2 Sat by Pulse Oximetry (%) 97 04/15/20 05:45 Additional Findings/Remarks: Constitutional: Yes: Well Nourished, No Distress, Calm Eyes: Yes: WNL, Conjunctiva Clear HENT: Yes: WNL, Atraumatic, Normocephalic Neck: Yes: WNL, Supple, Trachea Midline Cardiovascular: Yes: WNL, Regular Rate and Rhythm Respiratory: Yes: WNL, Regular, CTA Bilaterally Gastrointestinal: Yes: WNL, Normal Bowel Sounds Genitourinary: Yes: WNL Breast(s): Yes: WNL Musculoskeletal: Yes: WNL Edema: Yes Edema: RUE: 2+ (right arm edema with right lower arm erythema and pain, found to have a right DVT. ) Peripheral Pulses WNL: Yes Peripheral Pulses: Left Radial: 2+, Right Radial: 2+, Left Doralis Pedis: 2+, Right Dorsalis Pedis: 2+, Left Femoral: 2+, Right Femoral: 2+ Integumentary: Yes: WNL Neurological: Yes: WNL, Alert, Oriented ...Motor Strength: WNL Psychiatric: Yes: WNL Labs: INR, PTT INR 2.00 (0.83-1.09) H 04/13/20 06:46 Fibrinogen 294.0 mg/dL (238-498) 04/11/20 23:00 Problem List - Problems (1) ETOH abuse Assessment/Plan: patient quit early February 2020, no withdrawal symptoms currently. Code(s): F10.10 - ALCOHOL ABUSE, UNCOMPLICATED (2) Prophylactic measure Assessment/Plan: FEN Fluids: adequate PO intake Electrolytes: monitor & replete as needed Nutrition: reg diet DVT moderate risk Fondaparinux Dispo Maintain as inpatient full code discharge planning Code(s): Z29.9 - ENCOUNTER FOR PROPHYLACTIC MEASURES, UNSPECIFIED (3) COVID-19 ruled out by laboratory testing Assessment/Plan: negative pcr Code(s): Z03.818 - ENCNTR FOR OBS FOR SUSP EXPSR TO OTH BIOLG AGENTS RULED OUT (4) Acute pulmonary embolism Assessment/Plan: Acute RLL PE on CTA c/w Fondaparinux heme/onc following pulmonary following Code(s): I26.99 - OTHER PULMONARY EMBOLISM WITHOUT ACUTE COR PULMONALE (5) Deep vein thrombosis (DVT) of axillary vein of right upper extremity Assessment/Plan: extensive right arm DVT RLL PE c/w AC elevate upper extrem Code(s): I82.A11 - ACUTE EMBOLISM AND THROMBOSIS OF RIGHT AXILLARY VEIN Qualifiers: Chronicity: acute Qualified Code(s): I82.A11 - Acute embolism and thrombosis of right axillary vein (6) Deep vein thrombosis (DVT) of brachial vein of right upper extremity Code(s): I82.621 - ACUTE EMBOLISM AND THROMBOSIS OF DEEP VEINS OF R UP EXTREM Qualifiers: Chronicity: acute Qualified Code(s): I82.621 - Acute embolism and thrombosis of deep veins of right upper extremity (7) Pancreatic cancer Assessment/Plan: pancreatic cancer with liver mets. patient followed up with Dr Longoria for treatment option on Monday, but was sent to ED for right arm DVT. has not yet started treatment. on previous admission, he refused chemo and RT heme/onc following liver biopsy confirms adenocarcinoma well to moderately differentiated palliative care consulted and pt not willing to discuss GOC Code(s): C25.9 - MALIGNANT NEOPLASM OF PANCREAS, UNSPECIFIED (8) Thrombocytopenia Assessment/Plan: plt 94 c/t monitor Code(s): D69.6 - THROMBOCYTOPENIA, UNSPECIFIED (9) Abdominal pain Assessment/Plan: intermittent c/w pain regimine Code(s): R10.9 - UNSPECIFIED ABDOMINAL PAIN (10) Portal vein thrombosis Assessment/Plan: c/w AC heme/onc following Code(s): I81 - PORTAL VEIN THROMBOSIS Visit type - Emergency Visit Emergency Visit: Yes ED Registration Date: 04/10/20 Care time: The patient presented to the Emergency Department on the above date and was hospitalized for further evaluation of their emergent condition. - New Patient This patient is new to me today: No - Critical Care Critical Care patient: No - Discharge Referral Referred to [facility] Med P.C.: No - Medication Review Med list reviewed for High Risk Meds patients 65 and older: Yes
[2020-04-15 07:37] LABS: BASO % 0.5 % (0-2.0); EOS % 0.7 % (0-4.5); HEMATOCRIT 31.9 % (35.4-49); HEMOGLOBIN 10.6 GM/dL (11.7-16.9); LYMPH % 6.1 % (8-40); MCH 31.7 pg (25.7-33.7); MCHC 33.4 g/dl (32.0-35.9); MEAN PLT VOLUME 10.1 fl (7.5-11.1); MONO % 10.3 % (3.8-10.2); NEUT % 82.4 % (42.8-82.8); PLATELET COUNT 94 K/MM3 (134-434); RBC 3.36 M/mm3 (4.00-5.60); RDW 15.2 % (11.9-15.9); WHITE BLOOD COUNT 9.1 K/mm3 (4.0-10.0)
[2020-04-15 07:51] LABS: BILIRUBIN,TOTAL 4.8 mg/dL (0.2-1); BLOOD UREA NITROGEN 18.3 mg/dL (7-18); CALCIUM 7.6 mg/dL (8.5-10.1); CREATININE 0.8 mg/dL (0.55-1.3); MAGNESIUM 2.3 mg/dL (1.8-2.4); POTASSIUM 4.2 mmol/L (3.5-5.1); TOT PROT 4.6 g/dl (6.4-8.2)
[2020-04-15] MEDS ORDERED: PT OWN MED DRAWER 7, Y5N ONE (09:00)
[2020-04-15] MEDS: FONDAPARINUX SODIUM 7.5 MG/0.6 ML SYRINGE SQ SCH (09:09)
[2020-04-15] MEDS: PANTOPRAZOLE 40 MG TABLET PO SCH (09:09)
--- NOTE | 2020-04-15 12:05 | PN ---
Progress Note (short form) - Note Progress Note: PULMONARY c/o abdominal pain. Vital Signs Period Temp Pulse Resp BP Sys/[place] Paz Pulse Ox Last 24 Hr 97.5 F-98.4 F 61-79 12-20 120-143/70-98 95-98 Gen: jaundiced Heart: RRR Lung: decreased breath sounds at the bases Abd: softly distended, TTP Ext: + edema CBC, BMP 04/15/20 05:50 04/15/20 05:50 Active Medications Docusate Sodium (Colace -) 100 mg PO TID [facility] Last Admin: 04/15/20 06:00 Dose: Not Given Documented by: Fentanyl (Duragesic 25mcg Patch -) 1 patch TD Q72H [facility] Stop: 04/20/20 14:08 Last Admin: 04/13/20 14:58 Dose: 1 patch Documented by: Fondaparinux (Fondaparinux Sodium) 7.5 mg SQ DAILY [facility] Last Admin: 04/15/20 09:09 Dose: 7.5 mg Documented by: Hydromorphone HCl (Dilaudid Vial -) 0.5 mg IVPB Q3H PRN PRN Reason: PAIN LEVEL 7 - 10 Last Admin: 04/15/20 09:19 Dose: 0.5 mg Documented by: Lactated Ringer's (Lactated Ringers Solution) 1,000 ml in 1,000 mls @ 83 mls/hr IV ASDIR [facility] Last Admin: 04/15/20 06:00 Dose: 83 mls/hr Documented by: Miscellaneous (Duragesic Patch Waste) 1 each TD PRN PRN PRN Reason: PAIN Pantoprazole Sodium (Protonix -) 40 mg PO DAILY [facility] Last Admin: 04/15/20 09:09 Dose: 40 mg Documented by: A/P Acute Pulmonary Emboli Metastatic Pancreatic Cancer Elevated LFTs RUE DVT Thrombocytopenia Acute Kidney Injury improved - continue anticoagulation - f/u HIT Ab - monitor platelet counts - O2 to keep SpO2 >90% - continue discussions regarding goals of care
[2020-04-16] MEDS: HYDROmorphone HCl 2 MG/ML VIAL IVPB PRN ×4 (07:06→22:06)
[2020-04-16] MEDS: DOCUSATE SODIUM 100 MG CAPSULE (FP) PO SCH ×3 (07:07→21:02)
[2020-04-16] MEDS: LACTATED RINGERS SOLUTION 1,000 ML/1,000 ML INFUS.BAG IV SCH (07:07)
--- NOTE | 2020-04-16 07:51 | PN ---
Progress Note, Physician Chief Complaint: Seen and examined in bed. C/o mild abdominal pain to right. Increased fnetanyl patch for better pain control.No clear plan from family/pt on GOC. Not agreeable to invasive cancer treatments. Does not wish to be transferred to tertiary care center at this time. Attempted to contact Dr Longoria who pt previous consulted with for radiosurgery for cancer treatment. Meeting scheduled with family to discuss POC History of Present Illness: Patient is a 75 male with a past medical history of right inguinal hernia s/p repair in , ETOH abuse (quit apx month ago, drank 1 pint vodka daily), former smoker and newly found pancreatic cancer with liver lesions on recent admission at [facility]. Pt was being evaluated by Dr. Longoria (oncologist) on Monday when he was noted to have right arm edema. He was sent to [facility] for further evaluation. He was found to have an acute DVT of right arm and an acute RLL PE on CTA imaging. Also noted to have SY. he was on a heparin drip. His hmg/hct trended down today and platelets continued to drop. heparin drip stopped and placed on fondaparinux. repeat hmg/hct downtrending. discussed with GI and a ct abd/pelvis recommended to rule out retroperitoneal bleed recommended. a ct of right arm ordered to rule out hematoma. he is having brown soft stools and UA sent. stool for occult blood negative. - Current Medication List Current Medications: Active Medications Docusate Sodium (Colace -) 100 mg PO TID [facility] Last Admin: 04/16/20 07:07 Dose: Not Given Documented by: Fentanyl (Duragesic 25mcg Patch -) 1 patch TD Q72H [facility] Stop: 04/20/20 14:08 Last Admin: 04/13/20 14:58 Dose: 1 patch Documented by: Fondaparinux (Fondaparinux Sodium) 7.5 mg SQ DAILY [facility] Last Admin: 04/15/20 09:09 Dose: 7.5 mg Documented by: Hydromorphone HCl (Dilaudid Vial -) 0.5 mg IVPB Q3H PRN PRN Reason: PAIN LEVEL 7 - 10 Last Admin: 04/16/20 07:06 Dose: 0.5 mg Documented by: Lactated Ringer's (Lactated Ringers Solution) 1,000 ml in 1,000 mls @ 83 mls/hr IV ASDIR [facility] Last Admin: 04/16/20 07:07 Dose: 83 mls/hr Documented by: Miscellaneous (Duragesic Patch Waste) 1 each TD PRN PRN PRN Reason: PAIN Pantoprazole Sodium (Protonix -) 40 mg PO DAILY [facility] Last Admin: 04/15/20 09:09 Dose: 40 mg Documented by: - Objective Vital Signs: Vital Signs Temperature 97.9 F 04/15/20 21:00 Pulse Rate 84 04/16/20 05:00 Respiratory Rate 22 H 04/16/20 05:00 Blood Pressure 138/85 04/16/20 05:00 O2 Sat by Pulse Oximetry (%) 100 04/16/20 05:00 Additional Findings/Remarks: Constitutional: Yes: Well Nourished, No Distress, Calm Eyes: Yes: WNL, Conjunctiva Clear HENT: Yes: WNL, Atraumatic, Normocephalic. Sclera icteric. Neck: Yes: WNL, Supple, Trachea Midline Cardiovascular: Yes: WNL, Regular Rate and Rhythm Respiratory: Yes: WNL, Regular, CTA Bilaterally Gastrointestinal: Yes: WNL, Normal Bowel Sounds Genitourinary: Yes: WNL Breast(s): Yes: WNL Musculoskeletal: Yes: WNL Edema: Yes Edema: RUE: 2+ (right arm edema with right lower arm erythema and pain, found to have a right DVT. ) Peripheral Pulses WNL: Yes Peripheral Pulses: Left Radial: 2+, Right Radial: 2+, Left Doralis Pedis: 2+, Right Dorsalis Pedis: 2+, Left Femoral: 2+, Right Femoral: 2+ Integumentary: Yes: WNL. Skin jaundice Neurological: Yes: WNL, Alert, Oriented ...Motor Strength: WNL Psychiatric: Yes: WNL Labs: CBC, BMP 04/15/20 05:50 04/15/20 05:50 INR, PTT INR 2.00 (0.83-1.09) H 04/13/20 06:46 Fibrinogen 294.0 mg/dL (238-498) 04/11/20 23:00 Problem List - Problems (1) ETOH abuse Assessment/Plan: patient quit early February 2020, no withdrawal symptoms currently. Code(s): F10.10 - ALCOHOL ABUSE, UNCOMPLICATED (2) Prophylactic measure Assessment/Plan: FEN Fluids: adequate PO intake Electrolytes: monitor & replete as needed Nutrition: reg diet DVT moderate risk Fondaparinux Dispo Maintain as inpatient full code discharge planning possible transfer to tertiary care center for further managment Code(s): Z29.9 - ENCOUNTER FOR PROPHYLACTIC MEASURES, UNSPECIFIED (3) COVID-19 ruled out by laboratory testing Assessment/Plan: negative pcr Code(s): Z03.818 - ENCNTR FOR OBS FOR SUSP EXPSR TO OTH BIOLG AGENTS RULED OUT (4) Acute pulmonary embolism Assessment/Plan: Acute RLL PE on CTA c/w Fondaparinux heme/onc following pulmonary following Code(s): I26.99 - OTHER PULMONARY EMBOLISM WITHOUT ACUTE COR PULMONALE (5) Deep vein thrombosis (DVT) of axillary vein of right upper extremity Assessment/Plan: extensive right arm DVT RLL PE c/w AC elevate upper extrem Code(s): I82.A11 - ACUTE EMBOLISM AND THROMBOSIS OF RIGHT AXILLARY VEIN Qualifiers: Chronicity: acute Qualified Code(s): I82.A11 - Acute embolism and thrombosis of right axillary vein (6) Deep vein thrombosis (DVT) of brachial vein of right upper extremity Code(s): I82.621 - ACUTE EMBOLISM AND THROMBOSIS OF DEEP VEINS OF R UP EXTREM Qualifiers: Chronicity: acute Qualified Code(s): I82.621 - Acute embolism and thrombosis of deep veins of right upper extremity (7) Pancreatic cancer Assessment/Plan: pancreatic cancer with liver mets. patient followed up with Dr Longoria for treatment option on Monday, but was sent to ED for right arm DVT. has not yet started treatment. on previous admission, he refused chemo and RT heme/onc following liver biopsy confirms adenocarcinoma well to moderately differentiated palliative care consulted and pt not willing to discuss GOC multiple attempts by senior writer and to contact Dr Mansfield-not affiliated with hospital-only see out patient for radiosurgery after speaking with and son-patient now willing to explore transfer to [facility] for further treatment- possible stent placement- Dr. Pete Downs-will initaite transfer in am Code(s): C25.9 - MALIGNANT NEOPLASM OF PANCREAS, UNSPECIFIED (8) Thrombocytopenia Assessment/Plan: plt 94 c/t monitor Code(s): D69.6 - THROMBOCYTOPENIA, UNSPECIFIED (9) Abdominal pain Assessment/Plan: intermittent fentanyl patch increased to 50mcg with dilaudid for breakthrough pain Code(s): R10.9 - UNSPECIFIED ABDOMINAL PAIN (10) Portal vein thrombosis Assessment/Plan: c/w AC heme/onc following Code(s): I81 - PORTAL VEIN THROMBOSIS Visit type - Emergency Visit Emergency Visit: Yes ED Registration Date: 04/10/20 Care time: The patient presented to the Emergency Department on the above date and was hospitalized for further evaluation of their emergent condition. - New Patient This patient is new to me today: No - Critical Care Critical Care patient: No - Discharge Referral Referred to [facility] Med P.C.: No - Medication Review Med list reviewed for High Risk Meds patients 65 and older: Yes
[2020-04-16] MEDS ORDERED: PT OWN MED DRAWER 7, Y5N ONE (08:47)
[2020-04-16] MEDS ORDERED: HYDROmorphone HCl 2 MG/ML VIAL IVPUSH ONE (09:15)
[2020-04-16] MEDS: FONDAPARINUX SODIUM 7.5 MG/0.6 ML SYRINGE SQ SCH (09:45)
[2020-04-16] MEDS: PANTOPRAZOLE 40 MG TABLET PO SCH (09:46)
--- NOTE | 2020-04-16 12:48 | PN ---
Progress Note (short form) - Note Progress Note: Resting in NAD on RA. Denies CP or SOB. Still with some abdominal discomfort. No acute events overnight. Intake & Output 04/11/20 04/12/20 04/13/20 04/14/20 23:59 23:59 23:59 23:59 Intake Total 1705 2749 2306 1939 Output Total 0 750 300 Balance 1705 1998 2306 1639 Weight 163 lb Last Vital Signs Temp Pulse Resp BP Pulse Ox 97.9 F 61 13 122/71 95 04/14/20 14:00 04/14/20 14:00 04/14/20 14:00 04/14/20 14:00 04/14/20 14:00 Active Medications Docusate Sodium (Colace -) 100 mg PO TID [facility] Last Admin: 04/14/20 14:16 Dose: 100 mg Documented by: Fentanyl (Duragesic 25mcg Patch -) 1 patch TD Q72H [facility] Stop: 04/20/20 14:08 Last Admin: 04/13/20 14:58 Dose: 1 patch Documented by: Fondaparinux (Fondaparinux Sodium) 7.5 mg SQ DAILY [facility] Last Admin: 04/14/20 09:14 Dose: 7.5 mg Documented by: Hydromorphone HCl (Dilaudid Vial -) 0.5 mg IVPB Q3H PRN PRN Reason: PAIN LEVEL 7 - 10 Lactated Ringer's (Lactated Ringers Solution) 1,000 ml in 1,000 mls @ 83 mls/hr IV ASDIR [facility] Last Admin: 04/14/20 07:30 Dose: 83 mls/hr Documented by: Miscellaneous (Duragesic Patch Waste) 1 each TD PRN PRN PRN Reason: PAIN Pantoprazole Sodium (Protonix -) 40 mg PO DAILY [facility] Last Admin: 04/14/20 09:15 Dose: 40 mg Documented by: Constitutional: Yes: Jaundiced, NAD Eyes: Yes: Sclera Icterus HENT: Yes: Atraumatic, Normocephalic Neck: Yes: Supple, Trachea Midline Cardiovascular: Yes: Regular Rate and Rhythm Respiratory: Yes: Diminished (at bases) Gastrointestinal: Yes: Soft, (+) Tenderness Edema: No Neurological: Yes: Alert, Oriented Labs: Laboratory Results - last 24 hr 04/12/20 04/14/2004/14/20 15:00 05:50 05:50 WBC 8.6 RBC 3.28 L Hgb 10.5 L Hct 30.9 L MCV 94.4 MCH 31.9 MCHC 33.8 RDW 14.7 Plt Count 90 L MPV 10.6 Absolute Neuts (auto) 7.1 Neutrophils % 82.7 Lymphocytes % 4.9 L Monocytes % 10.9 H Eosinophils % 1.0 Basophils % 0.5 Nucleated RBC % 0 Haptoglobin 77 Sodium 138 Potassium 4.7 Chloride 104 Carbon Dioxide 27 Anion Gap 7 L BUN 16.7 Creatinine 0.8 Est GFR (CKD-EPI)AfAm 101.99 Est GFR (CKD-EPI)NonAf 88.00 Random Glucose 96 Calcium 7.6 L Magnesium 2.2 Total Bilirubin 4.5 H AST 91 H ALT 49 Alkaline Phosphatase 247 H Total Protein 4.6 L Albumin 2.0 L Imaging - Results Cat Scan: Report Reviewed, Image Reviewed (small RUL, RLL filling defects) Assessment/Plan Acute Pulmonary Emboli Metastatic Pancreatic Cancer RUE DVT Acute Kidney Injury improved - continue anticoagulation (Noted Fondaparinux) - Oncology workup ongoing - GOC being discussed Dr Ambrose
[2020-04-16] MEDS ORDERED: FENTANYL PATCH WASTE TD PRN (14:30)
[2020-04-16] MEDS ORDERED: fentaNYL 50mcg/hr PATCH.TD72 TD SCH (14:30)
--- NOTE | 2020-04-16 15:37 | PN.GI ---
GI Progress Note Subjective: covering for Dr garrido No acute events, No overt bleeding, mild abdominal discomfort - Objective Vital Signs: Vital Signs Temperature 98.6 F 04/16/20 10:00 Pulse Rate 84 04/16/20 12:00 Respiratory Rate 18 04/16/20 12:00 Blood Pressure 126/72 04/16/20 12:00 O2 Sat by Pulse Oximetry (%) 97 04/16/20 12:00 Constitutional: Well Nourished, No Distress, Calm Eyes: Yes: EOM Intact HENT: Yes: Atraumatic, Normocephalic Neck: Yes: Supple, Trachea Midline Cardiovascular: Yes: Regular Rate and Rhythm Respiratory: Yes: Regular, Diminished (at bases) Gastrointestinal Inspection: Yes: WNL ...Auscultate: Yes: Normoactive Bowel Sounds Labs: CBC, BMP 04/15/20 05:50 04/15/20 05:50 INR, PTT INR 2.00 (0.83-1.09) H 04/13/20 06:46 Fibrinogen 294.0 mg/dL (238-498) 04/11/20 23:00 Assessment/Plan Metastatic Pancreatic Cancer: > as per Dr garrido Will need follow-up with Oncologist as outpatient metallic stent placement in tertiary center
[2020-04-17] MEDS: LACTATED RINGERS SOLUTION 1,000 ML/1,000 ML INFUS.BAG IV SCH (02:11)
[2020-04-17] MEDS: HYDROmorphone HCl 2 MG/ML VIAL IVPB PRN ×4 (05:45→21:15)
[2020-04-17] MEDS: DOCUSATE SODIUM 100 MG CAPSULE (FP) PO SCH ×3 (05:46→21:48)
--- NOTE | 2020-04-17 07:43 | PN ---
Progress Note, Physician Chief Complaint: Seen and examined in bed. US revealed no biliary dilatation. No need for transfer to tertiary care center for stent placement. Plan for firther follow up cancer treatment with Dr Longoria Family meeting to discuss discharge plan for tomorrow History of Present Illness: Patient is a 75 male with a past medical history of right inguinal hernia s/p repair in , ETOH abuse (quit apx month ago, drank 1 pint vodka daily), former smoker and newly found pancreatic cancer with liver lesions on recent admission at [facility]. Pt was being evaluated by Dr. Longoria (oncologist) on Monday when he was noted to have right arm edema. He was sent to [facility] for further evaluation. He was found to have an acute DVT of right arm and an acute RLL PE on CTA imaging. Also noted to have SY. he was on a heparin drip. His hmg/hct trended down today and platelets continued to drop. heparin drip stopped and placed on fondaparinux. repeat hmg/hct downtrending. discussed with GI and a ct abd/pelvis recommended to rule out retroperitoneal bleed recommended. a ct of right arm ordered to rule out hematoma. he is having brown soft stools and UA sent. stool for occult blood negative. - Current Medication List Current Medications: Active Medications Docusate Sodium (Colace -) 100 mg PO TID [facility] Last Admin: 04/17/20 05:46 Dose: Not Given Documented by: Fentanyl (Duragesic 50mcg Patch -) 1 patch TD Q72H [facility] Stop: 04/23/20 14:29 Last Admin: 04/16/20 13:39 Dose: 1 patch Documented by: Fondaparinux (Fondaparinux Sodium) 7.5 mg SQ DAILY [facility] Last Admin: 04/16/20 09:45 Dose: 7.5 mg Documented by: Hydromorphone HCl (Dilaudid Vial -) 0.5 mg IVPB Q3H PRN PRN Reason: PAIN LEVEL 7 - 10 Last Admin: 04/17/20 05:45 Dose: 0.5 mg Documented by: Lactated Ringer's (Lactated Ringers Solution) 1,000 ml in 1,000 mls @ 83 mls/hr IV ASDIR [facility] Last Admin: 04/17/20 02:11 Dose: Not Given Documented by: Miscellaneous (Duragesic Patch Waste) 1 each TD PRN PRN PRN Reason: PAIN Last Admin: 04/16/20 14:30 Dose: 1 each Documented by: Pantoprazole Sodium (Protonix -) 40 mg PO DAILY [facility] Last Admin: 04/16/20 09:46 Dose: 40 mg Documented by: - Objective Vital Signs: Vital Signs Temperature 98.6 F 04/17/20 02:00 Pulse Rate 79 04/17/20 02:00 Respiratory Rate 20 04/17/20 02:00 Blood Pressure 117/66 04/16/20 21:00 O2 Sat by Pulse Oximetry (%) 97 04/17/20 02:00 Additional Findings/Remarks: Constitutional: Yes: Well Nourished, No Distress, Calm Eyes: Yes: WNL, Conjunctiva Clear HENT: Yes: WNL, Atraumatic, Normocephalic. Sclera icteric. Neck: Yes: WNL, Supple, Trachea Midline Cardiovascular: Yes: WNL, Regular Rate and Rhythm Respiratory: Yes: WNL, Regular, CTA Bilaterally Gastrointestinal: Yes: WNL, Normal Bowel Sounds Genitourinary: Yes: WNL Breast(s): Yes: WNL Musculoskeletal: Yes: WNL Edema: Yes Edema: RUE: 2+ (right arm edema with right lower arm erythema and pain, found to have a right DVT. ) Peripheral Pulses WNL: Yes Peripheral Pulses: Left Radial: 2+, Right Radial: 2+, Left Doralis Pedis: 2+, Right Dorsalis Pedis: 2+, Left Femoral: 2+, Right Femoral: 2+ Integumentary: Yes: WNL. Skin jaundice Neurological: Yes: WNL, Alert, Oriented ...Motor Strength: WNL Psychiatric: Yes: WNL Labs: CBC, BMP 04/15/20 05:50 04/15/20 05:50 INR, PTT INR 2.00 (0.83-1.09) H 04/13/20 06:46 Fibrinogen 294.0 mg/dL (238-498) 04/11/20 23:00 Problem List - Problems (1) ETOH abuse Assessment/Plan: patient quit early February 2020, no withdrawal symptoms currently. Code(s): F10.10 - ALCOHOL ABUSE, UNCOMPLICATED (2) Prophylactic measure Assessment/Plan: FEN Fluids: adequate PO intake Electrolytes: monitor & replete as needed Nutrition: reg diet DVT moderate risk Fondaparinux Dispo Maintain as inpatient full code discharge tmrw to home Code(s): Z29.9 - ENCOUNTER FOR PROPHYLACTIC MEASURES, UNSPECIFIED (3) COVID-19 ruled out by laboratory testing Assessment/Plan: negative pcr Code(s): Z03.818 - ENCNTR FOR OBS FOR SUSP EXPSR TO OTH BIOLG AGENTS RULED OUT (4) Acute pulmonary embolism Assessment/Plan: Acute RLL PE on CTA c/w Fondaparinux heme/onc following pulmonary following Code(s): I26.99 - OTHER PULMONARY EMBOLISM WITHOUT ACUTE COR PULMONALE (5) Deep vein thrombosis (DVT) of axillary vein of right upper extremity Assessment/Plan: extensive right arm DVT RLL PE c/w AC x 6mo elevate upper extrem Code(s): I82.A11 - ACUTE EMBOLISM AND THROMBOSIS OF RIGHT AXILLARY VEIN Qualifiers: Chronicity: acute Qualified Code(s): I82.A11 - Acute embolism and thrombosis of right axillary vein (6) Deep vein thrombosis (DVT) of brachial vein of right upper extremity Code(s): I82.621 - ACUTE EMBOLISM AND THROMBOSIS OF DEEP VEINS OF R UP EXTREM Qualifiers: Chronicity: acute Qualified Code(s): I82.621 - Acute embolism and thrombosis of deep veins of right upper extremity (7) Pancreatic cancer Assessment/Plan: pancreatic cancer with liver mets. follow up with Dr Longoria for treatment option heme/onc following liver biopsy confirms adenocarcinoma well to moderately differentiated Code(s): C25.9 - MALIGNANT NEOPLASM OF PANCREAS, UNSPECIFIED (8) Thrombocytopenia Assessment/Plan: plt 94 c/t monitor Code(s): D69.6 - THROMBOCYTOPENIA, UNSPECIFIED (9) Abdominal pain Assessment/Plan: intermittent c/w fentanyl patch and roxicodone for breakthrough pt instructed to follow up with choric pain for additional rx Code(s): R10.9 - UNSPECIFIED ABDOMINAL PAIN (10) Portal vein thrombosis Assessment/Plan: c/w AC heme/onc following Code(s): I81 - PORTAL VEIN THROMBOSIS (11) Chronic pain Assessment/Plan: fentanyl patch and roxicodone for breakthrough pain on dc to f/u with chronic pain Code(s): G89.29 - OTHER CHRONIC PAIN Visit type - Emergency Visit Emergency Visit: Yes ED Registration Date: 04/10/20 Care time: The patient presented to the Emergency Department on the above date and was hospitalized for further evaluation of their emergent condition. - New Patient This patient is new to me today: No - Critical Care Critical Care patient: No - Discharge Referral Referred to [facility] Med P.C.: No - Medication Review Med list reviewed for High Risk Meds patients 65 and older: No
[2020-04-17] MEDS ORDERED: PT OWN MED DRAWER 7, Y5N ONE (09:08)
[2020-04-17] MEDS: PANTOPRAZOLE 40 MG TABLET PO SCH (09:33)
[2020-04-17] MEDS: FONDAPARINUX SODIUM 7.5 MG/0.6 ML SYRINGE SQ SCH (09:34)
--- NOTE | 2020-04-17 11:49 | PN ---
Physical Exam: SUBJECTIVE: Patient seen and examined this AM. No new complaints. Denies any gross bleeding. OBJECTIVE: Vital Signs Period Temp Pulse Resp BP Sys/De Paz Pulse Ox Last 24 Hr 98 F-98.6 F 60-84 18-20 117-140/66-80 97-97 GENERAL: A&Ox3, NAD HEAD: NCAT EYES: PERRL, EOMI ENT: MMM NECK: Supple LUNGS: Diminished breath sounds at the bases, No wheezes HEART: Regular rate and rhythm, normal S1 and S2 without murmur ABDOMEN: Soft, nontender, not distended, + bowel sounds, no guarding EXTREMITIES: RUE nonpittingedema, Erythema Overlying R Forearm with tenderness to mild palpation, No LE edema NEUROLOGICAL: Cranial nerves II-XII intact. SKIN: Warm, dry Laboratory Last Values WBC 9.1 K/mm3 (4.0-10.0) 04/15/20 05:50 Corrected WBC (auto) Cancelled 04/13/20 06:46 RBC 3.36 M/mm3 (4.00-5.60) L 04/15/20 05:50 Hgb 10.6 GM/dL (11.7-16.9) L 04/15/20 05:50 Hct 31.9 % (35.4-49) L 04/15/20 05:50 MCV 95.0 fl (80-96) 04/15/20 05:50 MCH 31.7 pg (25.7-33.7) 04/15/20 05:50 MCHC 33.4 g/dl (32.0-35.9) 04/15/20 05:50 RDW 15.2 % (11.9-15.9) 04/15/20 05:50 Plt Count 94 K/MM3 (134-434) L 04/15/20 05:50 MPV 10.1 fl (7.5-11.1) 04/15/20 05:50 Absolute Neuts (auto) 7.5 K/mm3 (1.5-8.0) 04/15/20 05:50 Neutrophils % 82.4 % (42.8-82.8) 04/15/20 05:50 Lymphocytes % 6.1 % (8-40) L D 04/15/20 05:50 Monocytes % 10.3 % (3.8-10.2) H 04/15/20 05:50 Eosinophils % 0.7 % (0-4.5) 04/15/20 05:50 Basophils % 0.5 % (0-2.0) 04/15/20 05:50 Nucleated RBC % 0 % (0-0) 04/15/20 05:50 Manual Slide Review Cancelled 04/13/20 06:46 Platelet Comment Cancelled 04/13/20 06:46 Haptoglobin 74 mg/dL (34-355) 04/13/20 06:46 PT with INR 23.80 SEC (9.7-13.0) H 04/13/20 06:46 INR 2.00 (0.83-1.09) H 04/13/20 06:46 PTT (Actin FS) 78.2 SECONDS (25.2-36.5) H 04/12/20 06:06 Fibrinogen 294.0 mg/dL (238-498) 04/11/20 23:00 Sodium 137 mmol/L (136-145) 04/15/20 05:50 Potassium 4.2 mmol/L (3.5-5.1) 04/15/20 05:50 Chloride 103 mmol/L (98-107) 04/15/20 05:50 Carbon Dioxide 26 mmol/L (21-32) 04/15/20 05:50 Anion Gap 8 MMOL/L (8-16) 04/15/20 05:50 BUN 18.3 mg/dL (7-18) H 04/15/20 05:50 Creatinine 0.8 mg/dL (0.55-1.3) 04/15/20 05:50 Est GFR (CKD-EPI)AfAm 101.99 04/15/20 05:50 Est GFR (CKD-EPI)NonAf 88.00 04/15/20 05:50 Random Glucose 112 mg/dL (74-106) H 04/15/20 05:50 Calcium 7.6 mg/dL (8.5-10.1) L 04/15/20 05:50 Phosphorus 2.0 mg/dL (2.5-4.9) L 04/11/20 06:12 Magnesium 2.3 mg/dL (1.8-2.4) 04/15/20 05:50 Iron 32 ug/dL (50-175) L 04/12/20 06:06 TIBC 81 ug/dL (250-450) L 04/12/20 06:06 Iron Saturation 39 % (17.5-39) 04/12/20 06:06 Unsaturated IBC 49 ug/dL (200-275) L 04/12/20 06:06 Ferritin 5061.4 ng/ml (8-388) H 04/12/20 15:19 Total Bilirubin 4.8 mg/dL (0.2-1) H 04/15/20 05:50 Direct Bilirubin 3.2 mg/dL (0.0-0.2) H 04/13/20 06:46 AST 96 U/L (15-37) H 04/15/20 05:50 ALT 49 U/L (13-61) 04/15/20 05:50 Alkaline Phosphatase 249 U/L (45-117) H 04/15/20 05:50 LD Total 731 U/L (87-246) H 04/13/20 06:46 Creatine Kinase 42 U/L (26-308) 04/10/20 20:10 Troponin I < 0.02 ng/ml (0.00-0.05) 04/11/20 01:22 Total Protein 4.6 g/dl (6.4-8.2) L 04/15/20 05:50 Albumin 2.0 g/dl (3.4-5.0) L 04/15/20 05:50 Urine Color Dk yellow 04/12/20 09:00 Urine Appearance Clear 04/12/20 09:00 Urine pH 5.0 (5.0-8.0) 04/12/20 09:00 Ur Specific [place] 1.025 (1.010-1.035) 04/12/20 09:00 Urine Protein Trace (NEGATIVE) 04/12/20 09:00 Urine Glucose (UA) Negative (NEGATIVE) 04/12/20 09:00 Urine Ketones Negative (NEGATIVE) 04/12/20 09:00 Urine Blood Negative (NEGATIVE) 04/12/20 09:00 Urine Nitrite Positive (NEGATIVE) H 04/12/20 09:00 Urine Bilirubin 1+ (NEGATIVE) H 04/12/20 09:00 Urine Urobilinogen 2.0 mg/dL (0.2-1.0) 04/12/20 09:00 Ur Leukocyte Esterase Negative (NEGATIVE) 04/12/20 09:00 Urine WBC (Auto) 2 /uL (0-25.8) 04/12/20 09:00 Urine RBC (Auto) 12 /uL (0-23.9) 04/12/20 09:00 Urine Casts (Auto) 1 /uL (0-3.1) 04/12/20 09:00 U Epithel Cells (Auto) 2 /uL (0-25.1) 04/12/20 09:00 Urine Bacteria (Auto) Moderate /uL (0-1359) 04/12/20 09:00 Ur Random Creatinine 133.0 mg/dL (30-150) 04/12/20 09:00 Stool Occult Blood Negative (NEGATIVE) 04/12/20 13:45 Heparin-Ind Plt Ab Scrn 0.091 OD (0.000-0.400) 04/12/20 06:06 COVID-19 ([place]) Not detected (Not Detected) 04/11/20 00:10 Blood Type B POSITIVE 04/12/20 09:50 Antibody Screen Negative 04/12/20 09:50 Crossmatch See Detail 04/12/20 09:50 ASSESSMENT/PLAN: 75 y/o M PMHx Metastatic pancreatic adenocarcinoma (recently diagnosed via liver bx and discharged from [facility] on 03/31 on DOAC as hospital course was complicated by PVT; Has only followed with Rad/Onc and ?Refused Chemotherapy), former smoker and EtOH abuse presented with RUE pain/swelling/discoloration after being found to have RUE DVT at his outpatient oncologists office, admitted for PE found on imaging. Patient endorses noncompliance for the last week with DOAC use. Patient admitted to tele and started on Heparin GTT however concern arose for BURAK given acute drop in PLT. Heparin GTT was switched to Fondaparinux (bivalirudin is nonformulary) as repeat CBC revealed improvement. #Acute Blood Loss Anemia -Etiology to be determined; Possibly dilutional as there is no clinical evidence for bleed, Will need to R/O BURAK -S/P 2u PRBC Transfusion as H&H was previously downtrending; H&H Now stable -S/P 5mg Vit K PO for Prolonged PT as coagulopathy likely due to vit K deficiency (Less likely due to metastatic disease to the liver) -Continue Fondaparinux; Can use apixaban 10 mg BID x 7 days, then 5 mg BID there after -PF4 ab noted -GI Evaluation appreciated; Will need referral to tertiary care for metallic CBD stent pending Abd US for billiary obstruction -PPI -Analgesia #Acute Pulmonary embolism + RUE DVT -In the setting of Pancreatic cancer not currently on therapy and noncompliance with previously Rx'ed DOAC -Heparin Gtt transitioned to Fondaparinux #Metastatic pancreatic adenocarcinoma -Outpatient oncology follow up -Palliative care consult -GOC Discussion ATTENDING PHYSICIAN STATEMENT I saw and evaluated the patient. I reviewed the resident's note and discussed the case with the resident. I agree with the resident's findings and plan as documented. SUBJECTIVE: OBJECTIVE: ASSESSMENT AND PLAN:
--- NOTE | 2020-04-17 12:13 | PN ---
Progress Note (short form) - Note Progress Note: Resting in NAD on RA. Denies CP or SOB. No acute events overnight. Intake & Output 04/14/20 04/15/20 04/16/20 04/17/20 23:59 23:59 23:59 23:59 Intake Total 3517 1769 1296 Output Total 650 450 300 Balance 2867 1319 996 Last Vital Signs Temp Pulse Resp BP Pulse Ox 98 F 68 18 125/81 97 04/17/20 10:00 04/17/20 12:00 04/17/20 12:00 04/17/20 12:00 04/17/20 10:00 Active Medications Docusate Sodium (Colace -) [address] [facility] Last Admin: 04/17/20 05:46 Dose: Not Given Documented by: Fentanyl (Duragesic 50mcg Patch -) [address] [facility] Stop: 04/23/20 14:29 Last Admin: 04/16/20 13:39 Dose: 1 patch Documented by: Fondaparinux (Fondaparinux Sodium) 7.[address] [facility] Last Admin: 04/17/20 09:34 Dose: 7.5 mg Documented by: Hydromorphone HCl (Dilaudid Vial -) 0.5 mg IVPB Q3H PRN PRN Reason: PAIN LEVEL 7 - 10 Last Admin: 04/17/20 05:45 Dose: 0.5 mg Documented by: Lactated Ringer's (Lactated Ringers Solution) 1,000 ml in 1,000 mls @ 83 mls/hr IV ASDIR [facility] Last Admin: 04/17/20 02:11 Dose: Not Given Documented by: Miscellaneous (Duragesic Patch Waste) 1 each TD PRN PRN PRN Reason: PAIN Last Admin: 04/16/20 14:30 Dose: 1 each Documented by: Pantoprazole Sodium (Protonix -) [address] [facility] Last Admin: 04/17/20 09:33 Dose: 40 mg Documented by: Constitutional: Yes: Jaundiced, NAD Eyes: Yes: Sclera Icterus HENT: Yes: Atraumatic, Normocephalic Neck: Yes: Supple, Trachea Midline Cardiovascular: Yes: Regular Rate and Rhythm Respiratory: Yes: Diminished (at bases) Gastrointestinal: Yes: Soft, (+) Tenderness Edema: No Neurological: Yes: Alert, Oriented Labs: Laboratory Results - last 24 hr 04/12/20 06:06 Heparin-Ind Plt Ab Scrn 0.091 Imaging - Results Cat Scan: Report Reviewed, Image Reviewed (small RUL, RLL filling defects) Assessment/Plan Acute Pulmonary Emboli Metastatic Pancreatic Cancer RUE DVT Acute Kidney Injury improved Continue anticoagulation (Noted Fondaparinux) Oncology workup ongoing GOC being discussed Dr Ambrose
[2020-04-18] MEDS: HYDROmorphone HCl 2 MG/ML VIAL IVPB PRN ×2 (00:32→08:15)
[2020-04-18] MEDS: LACTATED RINGERS SOLUTION 1,000 ML/1,000 ML INFUS.BAG IV SCH (05:03)
[2020-04-18] MEDS: DOCUSATE SODIUM 100 MG CAPSULE (FP) PO SCH ×2 (05:03→14:17)
--- NOTE | 2020-04-18 09:12 | DS ---
Physical Exam: SUBJECTIVE: Patient seen and examined OBJECTIVE: Vital Signs Period Temp Pulse Resp BP Sys/De Paz Pulse Ox Last 24 Hr 98 F-98.5 F 63-96 11-18 114-146/65-86 97-99 PHYSICAL EXAM Constitutional: Yes: Well Nourished, No Distress, Calm Eyes: Yes: WNL, Conjunctiva Clear HENT: Yes: WNL, Atraumatic, Normocephalic. Sclera icteric. Neck: Yes: WNL, Supple, Trachea Midline Cardiovascular: Yes: WNL, Regular Rate and Rhythm Respiratory: Yes: WNL, Regular, CTA Bilaterally Gastrointestinal: Yes: WNL, Normal Bowel Sounds Genitourinary: Yes: WNL Breast(s): Yes: WNL Musculoskeletal: Yes: WNL Edema: Yes Edema: RUE: 2+ (right arm edema less) Peripheral Pulses WNL: Yes Peripheral Pulses: Left Radial: 2+, Right Radial: 2+, Left Doralis Pedis: 2+, Right Dorsalis Pedis: 2+, Left Femoral: 2+, Right Femoral: 2+ Integumentary: Yes: WNL. Skin jaundice Neurological: Yes: WNL, Alert, Oriented ...Motor Strength: WNL Psychiatric: Yes: WNL LABS HOSPITAL COURSE: Date of Admission:04/10/20 Date of Discharge: 04/18/20 Problem List - Problems (1) ETOH abuse Assessment/Plan: patient quit early February 2020, no withdrawal symptoms currently. Code(s): F10.10 - ALCOHOL ABUSE, UNCOMPLICATED (2) Prophylactic measure Assessment/Plan: FEN Fluids: adequate PO intake Nutrition: reg diet DVT c/w Fondaparinux Dispo Maintain as inpatient full code discharge to home with services Code(s): Z29.9 - ENCOUNTER FOR PROPHYLACTIC MEASURES, UNSPECIFIED (3) COVID-19 ruled out by laboratory testing Assessment/Plan: negative pcr Code(s): Z03.818 - ENCNTR FOR OBS FOR SUSP EXPSR TO OTH BIOLG AGENTS RULED OUT (4) Acute pulmonary embolism Assessment/Plan: Acute RLL PE on CTA c/w Fondaparinux heme/onc f/u as outpatient pulmonary f/u as outpatient Code(s): I26.99 - OTHER PULMONARY EMBOLISM WITHOUT ACUTE COR PULMONALE (5) Deep vein thrombosis (DVT) of axillary vein of right upper extremity Assessment/Plan: extensive right arm DVT RLL PE c/w AC x 6mo elevate upper extrem Code(s): I82.A11 - ACUTE EMBOLISM AND THROMBOSIS OF RIGHT AXILLARY VEIN Qualifiers: Chronicity: acute Qualified Code(s): I82.A11 - Acute embolism and thrombosis of right axillary vein (6) Deep vein thrombosis (DVT) of brachial vein of right upper extremity Code(s): I82.621 - ACUTE EMBOLISM AND THROMBOSIS OF DEEP VEINS OF R UP EXTREM Qualifiers: Chronicity: acute Qualified Code(s): I82.621 - Acute embolism and thrombosis of deep veins of right upper extremity (7) Pancreatic cancer Assessment/Plan: pancreatic cancer with liver mets. follow up with Dr Longoria for treatment option heme/onc following liver biopsy confirms adenocarcinoma well to moderately differentiated f/u with Dr Longoria Code(s): C25.9 - MALIGNANT NEOPLASM OF PANCREAS, UNSPECIFIED (8) Thrombocytopenia Assessment/Plan: resolved Code(s): D69.6 - THROMBOCYTOPENIA, UNSPECIFIED (9) Abdominal pain Assessment/Plan: intermittent c/w fentanyl patch and roxicodone for breakthrough pt instructed to follow up with choric pain for additional rx Code(s): R10.9 - UNSPECIFIED ABDOMINAL PAIN (10) Portal vein thrombosis Assessment/Plan: c/w AC heme/onc following Code(s): I81 - PORTAL VEIN THROMBOSIS (11) Chronic pain Assessment/Plan: fentanyl patch and roxicodone for breakthrough pain on dc to f/u with chronic pain Code(s): G89.29 - OTHER CHRONIC PAIN Medically stable for discharge with f/u Minutes to complete discharge: 55 Discharge Summary Problems reviewed: Yes Reason For Visit: MALIGNANT NEOPLASM METASTATIC TO LIVER, DEEP VEIN Current Active Problems Acute blood loss anemia (Acute) Acute pulmonary embolism (Acute) COVID-19 ruled out by laboratory testing (Acute) Chronic pain (Acute) DVT prophylaxis (Acute) Deep vein thrombosis (DVT) of axillary vein of right upper extremity (Acute) Deep vein thrombosis (DVT) of brachial vein of right upper extremity (Acute) ETOH abuse (Acute) Pancreatic cancer (Acute) Prophylactic measure (Acute) Pulmonary embolism (Acute) Thrombocytopenia (Acute) Condition: Stable - Instructions Diet, Activity, Other Instructions: DISCHARGE YOUR VISIT You came to the hospital because you developed a clot in your arm and clots in your lungs-pulmonary emboli. You were given and blood thinner-FONDAPARINUX/ARIXTRA- and improved. You will stay on this until your primary provider tells you otherwise. You were previously diagnosed with pancreatic cancer with lesions in your liver. Continue follow up with Dr Longoria for treatment. MEDICATIONS Please continue to take your home medications as prescribed. There was some changes FONDAPARINUX/ARIXTRA DIET Continue your home diet ADDITIONAL CARE Please make an appointment to see your primary care provider, 1 week from today. ADDITIONAL INFORMATION Please call 911 or come directly to the emergency department if you experience unusual headache, vision change, shortness of breath, chest pain, numbness, tingling, loss of alertness/awareness, loss of function, unusual bleeding or any alarming symptoms. Thank you for allowing me to care for you. Iker Espinosa, [facility], [facility] [phone] Referrals: Zina Shook MD [Staff Physician] - Tony Longoria [Non Staff, Medical] - ON STAFF,NOT [Primary Care Provider] - Truman Barone DO [Staff Physician] - Earl Munoz MD [Staff Physician] - 2 Weeks (call for appoitment for follow up for pain meds) Disposition: VNS/HOME HEALTH CARE - Home Medications Comprehensive Discharge Medication List: Ambulatory Orders Folic Acid - 1 mg PO DAILY #30 tablet 03/30/20 Docusate Sodium [Colace -] 100 mg PO TID #90 capsule 04/17/20 FENTANYL 50mcg PATCH [DURAGESIC 50 mcg PATCH -] 1 patch TD Q72H #10 patch.td72 MDD 1 04/17/20 Fondaparinux Sodium 7.5 mg SQ DAILY #30 ml 04/17/20 Pantoprazole Sodium [Protonix -] 40 mg PO DAILY #30 tablet.ec 04/17/20 oxyCODONE HCL [Roxicodone -] 5 mg PO Q8H PRN 7 Days #45 tablet MDD 3 04/17/20 Prescription Drug Monitoring Program (I-STOP) results: I-STOP reviewed and no issues identified Problem List - Problems (1) ETOH abuse Code(s): F10.10 - ALCOHOL ABUSE, UNCOMPLICATED (2) Prophylactic measure Code(s): Z29.9 - ENCOUNTER FOR PROPHYLACTIC MEASURES, UNSPECIFIED (3) COVID-19 ruled out by laboratory testing Code(s): Z03.818 - ENCNTR FOR OBS FOR SUSP EXPSR TO [facility] BIOLG AGENTS RULED OUT (4) Acute pulmonary embolism Code(s): I26.99 - OTHER PULMONARY EMBOLISM WITHOUT ACUTE COR PULMONALE (5) Deep vein thrombosis (DVT) of axillary vein of right upper extremity Code(s): I82.A11 - ACUTE EMBOLISM AND THROMBOSIS OF RIGHT AXILLARY VEIN Qualifiers: Chronicity: acute Qualified Code(s): I82.A11 - Acute embolism and thrombosis of right axillary vein (6) Deep vein thrombosis (DVT) of brachial vein of right upper extremity Code(s): I82.621 - ACUTE EMBOLISM AND THROMBOSIS OF DEEP VEINS OF R UP EXTREM Qualifiers: Chronicity: acute Qualified Code(s): I82.621 - Acute embolism and thrombosis of deep veins of right upper extremity (7) Pancreatic cancer Code(s): C25.9 - MALIGNANT NEOPLASM OF PANCREAS, UNSPECIFIED (8) Thrombocytopenia Code(s): D69.6 - THROMBOCYTOPENIA, UNSPECIFIED (9) Abdominal pain Code(s): R10.9 - UNSPECIFIED ABDOMINAL PAIN (10) Portal vein thrombosis Code(s): I81 - PORTAL VEIN THROMBOSIS (11) Chronic pain Code(s): G89.29 - OTHER CHRONIC PAIN This patient is new to me today: No Emergency Visit: Yes ED Registration Date: 04/10/20 Care time: The patient presented to the Emergency Department on the above date and was hospitalized for further evaluation of their emergent condition. Critical Care patient: No - Discharge Referral Referred to [facility] Med P.C.: No
[2020-04-18] MEDS: PANTOPRAZOLE 40 MG TABLET PO SCH (11:05)
[2020-04-18] MEDS: FONDAPARINUX SODIUM 7.5 MG/0.6 ML SYRINGE SQ SCH (11:05)
--- NOTE | 2020-04-18 12:55 | PN ---
Progress Note (short form) - Note Progress Note: Resting in NAD on RA. Denies CP or SOB. No acute events overnight. Intake & Output 04/15/20 04/16/20 04/17/20 04/18/20 23:59 23:59 23:59 23:59 Intake Total 1769 1296 100 996 Output Total 450 300 240 Balance 1319 996 100 756 Last Vital Signs Temp Pulse Resp BP Pulse Ox 98.5 F 66 11 137/74 96 04/18/20 02:00 04/18/20 10:00 04/18/20 10:00 04/18/20 10:00 04/18/20 10:00 Active Medications Docusate Sodium (Colace -) 100 mg PO TID [facility] Last Admin: 04/18/20 05:03 Dose: Not Given Documented by: Fentanyl (Duragesic 50mcg Patch -) 1 patch TD Q72H [facility] Stop: 04/23/20 14:29 Last Admin: 04/16/20 13:39 Dose: 1 patch Documented by: Fondaparinux (Fondaparinux Sodium) 7.5 mg SQ DAILY [facility] Last Admin: 04/18/20 11:05 Dose: 7.5 mg Documented by: Hydromorphone HCl (Dilaudid Vial -) 0.5 mg IVPB Q3H PRN PRN Reason: PAIN LEVEL 7 - 10 Last Admin: 04/18/20 08:15 Dose: 0.5 mg Documented by: Lactated Ringer's (Lactated Ringers Solution) 1,000 ml in 1,000 mls @ 83 mls/hr IV ASDIR [facility] Last Admin: 04/18/20 05:03 Dose: 83 mls/hr Documented by: Miscellaneous (Duragesic Patch Waste) 1 each TD PRN PRN PRN Reason: PAIN Last Admin: 04/16/20 14:30 Dose: 1 each Documented by: Pantoprazole Sodium (Protonix -) 40 mg PO DAILY [facility] Last Admin: 04/18/20 11:05 Dose: 40 mg Documented by: Constitutional: Yes: Jaundiced, NAD Eyes: Yes: Sclera Icterus HENT: Yes: Atraumatic, Normocephalic Neck: Yes: Supple, Trachea Midline Cardiovascular: Yes: Regular Rate and Rhythm Respiratory: Yes: Diminished (at bases) Gastrointestinal: Yes: Soft, (+) Tenderness Edema: No Neurological: Yes: Alert, Oriented Labs: Imaging - Results Cat Scan: Report Reviewed, Image Reviewed (small RUL, RLL filling defects) Assessment/Plan Acute Pulmonary Emboli Metastatic Pancreatic Cancer RUE DVT Acute Kidney Injury improved AC Oncology workup ongoing DC planning Dr Ambrose
[2020-04-18] MEDS ORDERED: oxyCODONE HCL 5 MG TABLET PO ONE (14:17)
[2020-04-18 17:50] VITALS: BP 148/67; PULSE 75; TEMP 98.4
--- NOTE | 2020-04-18 19:58 | HOSP ---
Subjective - Review of Symptoms Events since last encounter: -Contacted by the patient's pharmacy stating that the prescribed fundaparinux would not be available for the patient until Monday, leaving a 2 day lapse in AC for this DVT/PE patient. -Upon chart review, Dr. Ramirez ([facility]) wrote in her note from 04/13 that the patient should be placed on fundaparinux until his HIIT antibody came back. If the antibody was negative, Dr. Ramirez recommended restarting the patient on his home dose Eliquis (5mg BID per chart). -patient's Heparin Induced antibody screen sent out on 04/12/20 showed the level of .091, under the .400 cutoff, indicating a negative test. -Patient was set to be restated on Eliquis 5mg BID, his home dose upon discharge. Medication was sent to [facility], his preferred pharmacy as per patient's son. Informed patient's son of this decision. Physical Examination Vital Signs: Vital Signs Temperature 98.4 F 04/18/20 17:49 Pulse Rate 75 04/18/20 17:49 Respiratory Rate 15 04/18/20 17:49 Blood Pressure 148/67 04/18/20 17:49 O2 Sat by Pulse Oximetry (%) 98 04/18/20 17:49 Labs: CBC, BMP 04/15/20 05:50 04/15/20 05:50
== END 2020-04-18 18:30 | disposition home health service (06) | DRG 435 ==
LOC: JER 18:51 → JERBED 23:38 → JICU 04-11 03:44
PROVIDERS: ADMIT Internal Medicine; ATTEND Nurse Practitioner Acute Care
DX: C25.9 Malignant neoplasm of pancreas, unspecified (principal); I26.99 Other pulmonary embolism without acute cor pulmonale; I81 Portal vein thrombosis; N17.9 Acute kidney failure, unspecified; I82.A11 Acute embolism and thrombosis of right axillary vein; D62 Acute posthemorrhagic anemia; D69.6 Thrombocytopenia, unspecified; G89.29 Other chronic pain; D72.829 Elevated white blood cell count, unspecified
CPT/HCPCS: 36415; 71045-TC-FY; 71250-TC; 71275-TC; 73200-TC-RT; 74176-TC; 76705-TC; 76775-TC; 80053; 81003; 82248; 82272; 82550; 82565; 82728; 83010; 83540; 83550; 83615; 83735; 84100; 84484; 85025; 85384; 85610; 85730; 86022; 86850; 86900; 86901; 86922; 93005; 93010; 93306-TC; 93970-TC; 99285-25; J1644; U0003